=== PATIENT | female | born 1950 | race African-American/Black ===

== ENCOUNTER 2024-06-26 21:07 | Inpatient (IN) | payer OTHER ==
[~2024-06-26] VITALS: Ht 175.3 cm; Wt 113.4 kg
[2024-06-26 21:20] VITALS: PULSE 85; RESP 14; O2SAT 97
--- NOTE | 2024-06-26 21:27 | ED.PDOC ---
History of Present Illness HPI Comments 74 year old female presents to the ED with a chief complaint of generalized weakness onset 2 weeks. Per EMS, patient has been laying in bed for the past 2 weeks, family were not able to convince patient to go to hospital. Family noticed patient's weakness and shortness of breath worsened and called 911. Upon EMS arrival patient's O2 sat was 80% on RA, BP 78/53, BS 75. Patient was experiencing shortness of breath when moving, she was A&O x4. PMHx DM, HTN. No other symptoms or modifying factors present at this time. 22:15 Son states the patient fell about 1 week ago, since then has been laying in bed, noticed bilateral leg swelling. Patient's son also states patient was experiencing external hemorrhoid that was "hanging out." Patient had been lying prone in the bed due to rectal pain from hemorrhoid as well as having diarrhea. Patient has not been taking DM medication for the past 4 months. Son noticed patient was experiencing shortness of breath, called 911. Time Seen by MD: 21:13 Reviewed Notes: Medications, Allergies Allergies: Coded Allergies: NO KNOWN ALLERGIES (Unverified , 06/26/24) Information Source: Patient, Emergency Med Personnel Mode of Arrival: EMS Severity: Moderate Timing: Weeks Duration: Since onset Prehospital treatment: 12 Lead EKG, Oxygen Vital Signs Vital Signs Date Time Temp Pulse Resp B/P (MAP) Pulse Ox O2 Delivery O2 Flow Rate FiO2 06/27/24 03:15 95.2 81 18 104/64 (77) 100 95.2 06/27/24 02:10 35 06/26/24 22:00 Non-Rebreather 15 Physical Exam General: Patient appears lethargic, arouses to verbal stimulation Skin: Skin in warm, dry and intact. Appropriate color for ethnicity. HEENT: The head is normocephalic and atraumatic. Conjunctivae are clear with clear discharge. Sclera is non-icteric. EOM are intact. No signs of nystagmus. Eyelids are normal in appearance without swelling or lesions. Oral mucosa is dry Neck: The neck is supple with normal range of motion. Positive JVD. Cardiac: Heart rate and rhythm are normal. Positive systolic murmurs, gallops, or rubs are auscultated. Respiratory: No signs of respiratory distress. Lung sounds are clear in all lobes bilaterally without rales, rhonchi, or wheezes. Abdominal: Abdomen is soft, non-tender without distention. Bowel sounds are present and normoactive in all four quadrants. BRBPR Extremities: Upper and lower extremities are atraumatic in appearance. Positive 2+ pitting bilateral lower extremity edema Neurological: The patient is lethargic, easily arousable oriented to person, place, with normal speech. Speech is clear. There is no facial asymmetry. Moving all extremities spontaneously Review of Systems: REVIEW OF SYSTEMS: Unable to obtain full ROS due to altered mental status, generalized weakness Patient denies chest pain, denies abdominal pain, reports rectal pain and shortness of breath Past Medical History PAST MEDICAL HISTORY: DM, HTN Surgical History: Denies all surgeries SEAT COVERER History: No Pertinent SEAT COVERER History Family History Family History: Reviewed,noncontributory to illness, No family hx of Cancer, No family hx of DM, No family hx of Heart mike, No family hx of HTN, No family hx ofKidney mike, No family hx of Liver mike, No family hx of Lung mike, No family hx of Stroke Social History Smoker: Non-Smoker Alcohol: Denies ETOH Use Drugs: Denies Drug Use Lives In: Home Was a procedure done? 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 [employer] belt: Attending Physician Indication: Hypotension Room prepared for procedure: Yes Assistant Professor Of Chemistry performed hand hygien: Yes Maximal sterile barrier precau: Mask/Eye shield, Sterile gown, Cap, Sterlie gloves, Large sterlie drape Skin Preparation: Chlorhexidine gluconate, Providine iodine, Alcohol Skin preparation completely dr: Yes Insertion site: Left, Internal jugular Central line catheter type: Oti-[id number]-acz dialysis Number of lumens: 3 Central line exchanged over a: No Post Assessment: Chest X-Ray, Proper placement Informed consent obtained: Yes Risks/benefits/alt described: Yes Intubation Indication: Airway Protection Prep: Preoxygenation Pretreated with: Sedation Medicated with: Succinylcholine (120 mg), Other (etomidate 20 mg) Intubation Approach: Orotracheal Intubation size: cm (23) Informed consent obtained: Yes Risks/benefits/alt described: Yes EKG EKG : Pulse Rate (adult): 66 [place]: LAD Cardiac Rhythm: Junctional Comments No STEMI Differential Dx Considerations may include: Differential diagnosis considered includes but not limited to intracranial hemorrhage, stroke, head injury, seizure, metabolic disturbance, electrolyte imbalance, infection, substance intoxication, psychiatric cause, other systemic illness, sepsis, other X-Ray, Labs, Meds, VS Vital Signs Date Time Temp Pulse Resp B/P (MAP) Pulse Ox O2 Delivery O2 Flow Rate FiO2 06/27/24 03:15 95.2 81 18 104/64 (77) 100 95.2 06/27/24 03:00 110/64 06/27/24 03:00 110/64 06/27/24 03:00 95.0 80 18 110/64 (79) 100 95.0 06/27/24 02:45 94.8 83 18 115/66 (82) 100 94.8 06/27/24 02:36 115/66 06/27/24 02:36 115/66 06/27/24 02:32 116/62 06/27/24 02:32 116/62 06/27/24 02:30 94.6 84 18 112/65 (81) 100 94.6 06/27/24 02:15 94.6 83 18 116/62 (80) 100 94.6 06/27/24 02:15 112/65 06/27/24 02:15 94.6 83 18 116/62 94.6 06/27/24 02:10 84 18 112/65 (81) 99 35 06/27/24 02:00 94.6 83 18 118/64 94.6 06/27/24 02:00 94.6 84 18 113/64 (80) 100 94.6 06/27/24 02:00 118/64 06/27/24 02:00 118/64 06/27/24 01:55 94.6 87 18 112/65 94.6 06/27/24 01:45 94.8 84 18 113/64 94.8 06/27/24 01:45 94.8 84 18 113/64 (80) 100 94.8 06/27/24 01:45 113/64 06/27/24 01:30 95.0 84 18 108/59 (75) 100 95.0 06/27/24 01:30 97.2 88 18 103/47 99 40 97.2 06/27/24 01:15 84 18 100/58 (72) 100 06/27/24 01:15 100/58 06/27/24 01:00 80 18 95/55 (68) 100 06/27/24 01:00 95/55 06/27/24 01:00 95/55 06/27/24 00:50 90/54 06/27/24 00:45 80 18 89/53 (65) 100 06/27/24 00:45 89/53 06/27/24 00:45 89/53 06/27/24 00:30 85/48 06/27/24 00:30 85 18 85/48 (60) 100 06/27/24 00:15 96/54 06/27/24 00:15 86 18 96/54 (68) 100 06/27/24 00:05 88 18 103/47 (65) 99 50 06/27/24 00:02 197 06/27/24 00:00 80 18 90/53 (65) 100 06/27/24 00:00 90/53 06/27/24 00:00 90/53 06/26/24 23:45 86/48 06/26/24 23:45 86/48 06/26/24 23:30 86 18 108/56 (73) 100 06/26/24 23:15 86 18 110/54 (72) 100 06/26/24 23:15 110/54 06/26/24 23:00 86 18 109/55 (73) 100 06/26/24 23:00 109/55 06/26/24 23:00 109/55 06/26/24 22:45 113/56 06/26/24 22:45 87 18 113/56 (75) 100 06/26/24 22:37 88 18 113/56 (75) 100 50 06/26/24 22:30 88 18 118/62 (80) 100 06/26/24 22:15 86 18 92/36 (54) 100 06/26/24 22:15 92/36 06/26/24 22:15 92/36 06/26/24 22:10 80/49 06/26/24 22:08 66 06/26/24 22:05 57/32 06/26/24 22:01 66 06/26/24 22:00 104 19 147/114 (125) 99 06/26/24 22:00 147/112 06/26/24 22:00 22 98 Non-Rebreather 15 100 100 06/26/24 21:55 60/32 06/26/24 21:45 64/36 06/26/24 21:45 97.2 72 14 64/36 (45) 100 97.2 06/26/24 21:40 69/40 06/26/24 21:33 166 62/38 (46) 06/26/24 21:20 85 14 97 Non-Rebreather 15 N/A 06/26/24 21:12 155 06/26/24 21:10 97.2 66 16 78/58 (65) 88 97.2 Lab Test 06/27/24 02:28 06/27/24 01:19 06/27/24 01:02 06/27/24 00:34 Range/Units POC Glucose 134 H 82 70-106 mg/dl Lactic Acid Level 8.6 *H 0.4-2.0 mmol/L Blood Gas Specimen Type Arterial Blood Gas Sample Site Right radial Blood Gas Patient Temperature 37.0 Arterial Blood Date Drawn [id number] Arterial Blood pH 7.128 *L 7.350-7.450 Arterial Blood Partial Pressure CO2 28.8 L 32.0-45.0 mmHg Arterial Blood Partial Pressure O2 142.4 H 83.0-108.0 mmHg Arterial Blood HCO3 9.3 L 21.0-28.0 mmol/L Arterial Blood Oxygen Saturation 98.0 94.0-98.0 % Arterial Blood Base Excess -18.4 L -2.0-3.0 mmol/L Arterial Blood Oxyhemoglobin 96.8 94.0-98.0 % Arterial Blood Carboxyhemoglobin 0.4 L 0.5-1.5 % Arterial Blood Methemoglobin 0.8 0.0-1.5 % Michael Test Modified Blood Gas Total Hemoglobin 7.80 L 12.0-16.0 g/dL Blood Gas Set Respiration Rate 18.0 Blood Gas Modality Vent - ac Blood Gas Spontaneous Rate 18 FiO2 % 50.0 Blood Gas Tidal Volume 500.0 Blood Gas PEEP or CPAP 5.0 Blood Gas Critical Value Read Back Yes Blood Gas Notified Whom herminio Amaral md Blood Gas Notified Time [id number] Blood Gas Notified By marcus Bonilla casing inspector Test 06/27/24 00:20 06/27/24 00:16 06/27/24 00:03 06/26/24 23:30 Range/Units Urine Color Dark-orange Yellow Urine Clarity Ex.turbid Clear Urine pH 5.0 5.0-9.0 Urine Specific [place] 1.021 1.001-1.035 Urine Protein 1+ H Negative Urine Ketones Negative Negative Urine Blood 1+ H Negative /uL Urine Nitrite Negative Negative Urine Bilirubin 1+ H Negative Urine Urobilinogen 2 H Negative mg/dL Urine Leukocyte Esterase Negative Negative /uL Urine RBC 21 0 - 4 /hpf Urine Microscopic WBC 50 H 0-5 /HPF Urine Squamous Epithelial Cells None seen <5 /hpf Urine Bacteria None seen None Seen /hpf Urine Hyaline Casts Many 0 - 2 /lpf Urine Mucus Few None Seen Urine Creatinine Pending Urine Protein/Creatinine Ratio Pending Urine Sodium Pending Urine Glucose Normal Normal mg/dL Urine Total Protein Pending Urine Opiates Screen Neg NEGATIVE Urine Fentanyl Screen Neg NEGATIVE Urine Barbiturates Screen Neg NEGATIVE Urine Phencyclidine Screen Neg NEGATIVE Urine Amphetamines Screen Neg NEGATIVE Urine Benzodiazepines Screen Neg NEGATIVE Urine Cocaine Screen Neg NEGATIVE Urine Cannabinoids Screen Neg NEGATIVE D-Dimer, Quantitative 17.01 H 0.0-0.49 mg/L FEU Troponin I High Sensitivity 13 </=34 ng/L POC Glucose 84 70-106 mg/dl Lactic Acid Level 7.3 *H 0.4-2.0 mmol/L Test 06/26/24 23:21 06/26/24 22:40 06/26/24 22:34 06/26/24 22:25 Range/Units POC Glucose 89 98 70-106 mg/dl Sodium Level 139 136-145 mmol/L Potassium Level 6.6 *H 3.5-5.1 mmol/L Chloride Level 113 H 98-107 mmol/L Carbon Dioxide Level 12 L 20-31 mmol/L Anion Gap 14 5-15 Blood Urea Nitrogen 44 H 9-23 mg/dL Creatinine 3.11 H 0.550-1.02 mg/dL Glomerular Filtration Rate Calc 15 >90 mL/min BUN/Creatinine Ratio 14.1 10.0-20.0 Serum Glucose 96 74-106 mg/dL Calcium Level 6.6 L 8.7-10.4 mg/dL Troponin I High Sensitivity 11 </=34 ng/L Test 06/26/24 22:22 06/26/24 22:17 06/26/24 21:34 06/26/24 21:30 Range/Units POC Glucose 139 H 198 H 70-106 mg/dl Blood Gas Specimen Type Arterial Blood Gas Sample Site Left radial Blood Gas Patient Temperature 37.0 Arterial Blood Date Drawn Arterial Blood pH 7.266 L 7.350-7.450 Arterial Blood Partial Pressure CO2 22.2 L 32.0-45.0 mmHg Arterial Blood Partial Pressure O2 249.9 H 83.0-108.0 mmHg Arterial Blood HCO3 9.9 L 21.0-28.0 mmol/L Arterial Blood Oxygen Saturation 100.0 H 94.0-98.0 % Arterial Blood Base Excess -15.6 L -2.0-3.0 mmol/L Arterial Blood Oxyhemoglobin 98.8 H 94.0-98.0 % Arterial Blood Carboxyhemoglobin 0.6 0.5-1.5 % Arterial Blood Methemoglobin 0.6 0.0-1.5 % Michael Test Modified Blood Gas Total Hemoglobin 6.60 *L 12.0-16.0 g/dL Blood Gas Liter Flow 15.00 Blood Gas Modality Mask - nrb FiO2 % 100.0 Blood Gas Critical Value Read Back Yes Blood Gas Notified Whom herminio Amaral md Blood Gas Notified Time [id number] Blood Gas Notified By marcus Bonilla rrt White Blood Count 24.9 H 4.4-10.8 10^3/uL Red Blood Count 2.36 L 4.0-5.20 10^6/uL Hemoglobin 6.7 *L 12.2-16.2 g/dL Hematocrit 22.7 L 36.0-46.0 % Mean Corpuscular Volume 96.2 80.0-100.0 fL Mean Corpuscular Hemoglobin 28.6 28.0-32.0 pg Mean Corpuscular Hemoglobin Concent 29.7 L 32.0-36.0 g/dL Red Cell Distribution Width 20.6 H 11.8-14.3 % Platelet Count 248 140-450 10^3/uL Mean Platelet Volume 7.1 6.9-10.8 fL Neutrophils (%) (Auto) 37.0-80.0 % Lymphocytes (%) (Auto) 10.0-50.0 % Monocytes (%) (Auto) 0.0-12.0 % Basophils (%) (Auto) 0.0-2.0 % Neutrophils # (Auto) 1.6-8.6 10 ^3/uL Lymphocytes # (Auto) 0.4-5.4 10 ^3/uL Monocytes # (Auto) 0-1.3 10 ^3/uL Differential Total Cells Counted 100.0 100 Neutrophils % (Manual) 80 37.0-80.0 Band Neutrophils % (Manual) 9 Lymphocytes % (Manual) 7 L 10.0-50.0 Monocytes % (Manual) 4 0-12 Eosinophils % (Manual) 0 0-7 Basophils % (Manual) 0 0.0-2.0 Metamyelocytes % (manual) 0 Myelocytes % (Manual) 0 Promyelocytes % (Manual) 0 Blast Cells % (Manual) 0 Reactive Lymphocytes 0 Platelet Estimate Adequate Anisocytosis (manual) Slight Target Cells Few Tear Drop Cells Few [place] Cells Few Prothrombin Time 49.0 H 9.3-11.8 sec Prothrombin Time INR 5.47 *H 0.9-1.15 Sodium Level 135 L 136-145 mmol/L Potassium Level 7.2 *H 3.5-5.1 mmol/L Chloride Level 109 H 98-107 mmol/L Carbon Dioxide Level 12 L 20-31 mmol/L Anion Gap 14 5-15 Blood Urea Nitrogen 44 H 9-23 mg/dL Creatinine 3.44 H 0.550-1.02 mg/dL Glomerular Filtration Rate Calc 14 >90 mL/min BUN/Creatinine Ratio 12.8 10.0-20.0 Serum Glucose 29 *L 74-106 mg/dL Lactic Acid Level 7.1 *H 0.4-2.0 mmol/L Calcium Level 7.5 L 8.7-10.4 mg/dL Magnesium Level 2.3 1.6-2.6 mg/dL Total Bilirubin 4.8 H 0.2-1.0 mg/dL Aspartate Amino Transferase (AST) 278 H 13-40 U/L Alanine Aminotransferase (ALT) 55 H 7-40 U/L Alkaline Phosphatase 436 H 46-116 U/L Troponin I High Sensitivity 11 </=34 ng/L B-Type Natriuretic Peptide 134.34 0-100 pg/mL Total Protein 5.9 5.7-8.2 g/dL Albumin 2.1 L 3.2-4.8 g/dL Lipase 25 12-53 U/L Thyroid Stimulating Hormone (TSH) 2.44 0.55-4.78 uIU/mL Plasma/Serum Blood Alcohol 4.9 <10 mg/dL Microbiology Date/Time Source Procedure Growth Status 06/26/24 21:30 Blood Blood Culture - Preliminary Resulted 06/26/24 21:20 Blood Blood Culture - Preliminary Resulted Current Medications Medications (Trade) Dose Ordered Sig/[place] Route Start Time Stop Time Status Last Admin Albuterol (Ventolin Medneb) 2.5 mg ONCE ONCE NEB 06/26/24 21:30 06/26/24 21:31 DC 06/26/24 22:00 Sodium Chloride 1,000 ml @ 1,000 mls/hr Q1H ONCE IV 06/26/24 21:30 06/26/24 22:29 DC 06/26/24 21:30 Norepinephrine Bitartrate 250 ml @ 3.75 mls/hr Q24H IV 06/26/24 21:45 06/27/24 02:36 Ceftriaxone Sodium 50 ml @ 100 mls/hr ONCE ONCE IV 06/26/24 22:00 06/26/24 22:29 DC 06/27/24 01:02 Vancomycin HCl 200 ml @ 200 mls/hr ONCE ONCE IV 06/26/24 22:00 06/26/24 22:59 DC 06/27/24 01:02 Etomidate 20 mg ONCE ONCE IV 06/26/24 22:15 06/26/24 22:16 DC 06/27/24 02:30 Succinylcholine Chloride (Quelicin) 120 mg ONCE ONCE IV 06/26/24 22:15 06/26/24 22:16 DC 06/27/24 02:30 Midazolam HCl 50 ml @ 1 mls/hr Q24H IV 06/26/24 22:15 06/27/24 02:32 Dextrose 50 ml ONCE ONCE IV 06/26/24 22:30 06/26/24 22:31 DC 06/27/24 02:38 Sodium Bicarbonate 50 ml ONCE ONCE IV 06/26/24 22:30 06/26/24 22:31 DC 06/27/24 01:05 Calcium Gluconate/ Sodium Chloride 50 ml @ 120 mls/hr ONCE ONCE IV 06/26/24 22:30 5/7/25 22:54 DC 06/27/24 01:02 Zirconium Oxide (Lokelma) 10 gm ONCE ONCE PO 06/26/24 22:30 06/26/24 22:31 DC 06/27/24 01:01 Sodium Chloride 1,000 ml @ 1,000 mls/hr Q1H ONCE IV 06/27/24 00:30 06/27/24 01:29 DC 06/27/24 00:30 Vasopressin 20 units/Sodium Chloride 100 ml @ 9 mls/hr Q11H7M IV 06/27/24 01:00 06/27/24 17:59 Findings/Impression: Frontal chest radiograph demonstrates no acute osseous or superficial soft tissue abnormalities. The trachea is midline. Cardiomegaly. Low lung volumes bronchovascular crowding. Bibasilar atelectasis. No pneumothorax. Time of 1ST Reevaluation: 21:43 Reevaluation 1ST: Unchanged Patient Education/Counseling: Other (Need for admission and intubation) Family Education/Counseling: Other (Need for admission) Departure 1 Departure Time of Disposition: 23:51 Impression: Primary Impression: Metabolic acidosis Additional Impressions: Sepsis Acute respiratory failure Hyperkalemia Severe anemia Hypoglycemia Lower GI bleed Acute renal failure Disposition: ADMITTED INPATIENT Condition: Critical Comments 74-year-old female who presents to the emergency department with hypoxia, altered mental status and hypotension. Patient initially was maintaining oxygen saturations on non-rebreather mask. During the ED observation patient became more obtunded with gasping respirations. Patient was intubated for airway protection, optimal ventilation and oxygenation. Left internal jugular central line was placed. Antibiotics, IV fluids, pressors and blood transfusion, hyperkalemia treatment, hypoglycemia treatment initiated in the emergency department. IV fluids administered gently due to physical findings of fluid overload. Patient admitted to hospitalist service for further treatment, evaluation and monitoring. CT chest abdomen and pelvis pending Extensive evaluation was performed in attempt to identify or rule out: (See differential diagnosis section) The following tests were ordered, and results were reviewed by me and discussed with patient: (See diagnostic results section) The following test were independently interpreted by me: EKG, chest x-ray I reviewed and agreed with the following test results read by other providers: Chest x-ray I reviewed the following notes from the pt's past medical encounters: N/A Additional information was gathered from interviewing the following independent historians: Patient's son at bedside, EMS personnel Discussion of management or test interpretation with external physician/other qualified health nursing care attendant: Omer Vieyra Addressed an acute or chronic illness that poses a threat to life or bodily function: Acute metabolic encephalopathy, acute respiratory failure, severe anemia requiring blood transfusion, septic shock Decision regarding hospitalization or escalation of hospital level of care: Risk and benefits of admission for further treatment of patient's condition was considered. Due to patient's current clinical condition, high risk of decline and poor outcome if discharged and need for further inpatient management and monitoring, patient will be admitted to the hospital. Drug therapy requiring intensive monitoring for toxicity: IV potassium, IV sodium bicarbonate, IV calcium gluconate, IV dextrose Parenteral controlled substances: IV etomidate, IV succinylcholine, IV midazolam Decision regarding elective major surgery with identified patient or procedure risk factors: N/A Decision regarding emergency major surgery: N/A Decision not to resuscitate or to de-escalate care because of poor prognosis: N/A Diagnosis or treatment significantly limited by social determinants of health: N/A Critical Care Note Critical Care Time?: Yes (55 min-critical care time only) Critical care comment: Due to a high probability of clinically significant, life threatening deterioration, the patient required my highest level of preparedness to intervene emergently and I personally spent this critical care time directly and personally managing the patient. This critical care time included obtaining a history; examining the patient; pulse oximetry; ordering and review of studies; arranging urgent treatment with development of a management plan; evaluation of patient's response to treatment; frequent reassessment; and, discussions with other providers. This critical care time was performed to assess and manage the high probability of imminent, life-threatening deterioration that could result in multi-organ failure. It was exclusive of separately billable procedures and treating other patients and teaching time. Please see my other sections and the rest of the note for further information on patient assessment and treatment. Stability Stability form required: No I personally scribed for DELROY AMARAL MD ([email or web address]) on 06/26/24 at 21:27. Electronically submitted by Nunu Giles ([email or web address]). I personally scribed for DELROY AMARAL MD ([email or web address]) on 06/26/24 at 22:08. Electronically submitted by Nunu Gilse ([email or web address]). I personally scribed for DELROY AMARAL MD ([email or web address]) on 06/26/24 at 22:32. Electronically submitted by Nunu Giles ([email or web address]). I personally scribed for DELROY AMARAL MD ([email or web address]) on 06/26/24 at 22:39. Electronically submitted by Nunu Giles ([email or web address]). I personally scribed for DELROY AMARAL MD ([email or web address]) on 06/26/24 at 23:19. Electronically submitted by Nunu Giles ([email or web address]). DELROY AMARAL MD June 26, 2024 21:27
[2024-06-26] MEDS: SODIUM CHLORIDE 0.9% 1,000 ML IV ONE (21:30)
[2024-06-26] MEDS ORDERED: NOREPINEPHRINE 8 MG/250ML KIT 250 ML IV SCH (21:45)
[2024-06-26 21:50] LABS: Hematocrit 22.7 % (36.0-46.0); Mean Corpuscular Hemoglobin 28.6 pg (28.0-32.0); Mean Corpuscular Hgb Conc. 29.7 g/dL (32.0-36.0); Mean Corpuscular Volume 96.2 fL (80.0-100.0); Platelet Count (auto) 248 10^3/uL (140-450); Red Blood Cells 2.36 10^6/uL (4.0-5.20); White Blood Cell 24.9 10^3/uL (4.4-10.8)
[2024-06-26] MEDS: NOREPINEPHRINE 8 MG/250ML KIT 250 ML IV ONE (21:51)
--- NOTE | 2024-06-26 21:56 | DVH ---
EXAM: XY CHEST XRAY 1 VIEW TECHNIQUE: Single frontal chest radiograph CLINICAL HISTORY: AMS COMPARISON: None Findings/Impression: Frontal chest radiograph demonstrates no acute osseous or superficial soft tissue abnormalities. The trachea is midline. Cardiomegaly. Low lung volumes bronchovascular crowding. Bibasilar atelectasis. No pneumothorax.
[2024-06-26] MEDS: ALBUTEROL SULF 2.5 MG/0.5ML(0.5%) NEB SOLN NEB ONE (22:00)
[2024-06-26 22:06] LABS: Anion Gap 14 (5-15); BUN/Creatinine Ratio 12.8 (10.0-20.0); Blood Alcohol 4.9 mg/dL (<10); Magnesium 2.3 mg/dL (1.6-2.6); Total Protein 5.9 g/dL (5.7-8.2)
[2024-06-26 22:09] LABS: Alanine Aminotransferase 55 U/L (7-40); Albumin 2.1 g/dL (3.2-4.8); Alkaline Phosphatase 436 U/L (46-116); Aspartate Aminotransferase 278 U/L (13-40); Bilirubin, Total 4.8 mg/dL (0.2-1.0); Blood Urea Nitrogen 44 mg/dL (9-23); Calcium 7.5 mg/dL (8.7-10.4); Carbon Dioxide 12 mmol/L (20-31); Chloride 109 mmol/L (98-107); Hemoglobin 6.7 g/dL (12.2-16.2); Red Cell Distribution Width 20.6 % (11.8-14.3); Sodium 135 mmol/L (136-145)
[2024-06-26 22:10] LABS: Basophils % (manual) 0 (0.0-2.0); Blast Cells 0; Eosinophils % (manual) 0 (0-7); Lactic Acid w/Reflex 7.1 mmol/L (0.4-2.0); Metamyelocytes % 0; Myelocytes % 0; Promyelocytes % 0; Reactive Lymphocytes 0
[2024-06-26 22:11] LABS: Glucose 29 mg/dL (74-106); Potassium 7.2 mmol/L (3.5-5.1)
[2024-06-26] MEDS: SUCCINYLCHOLINE CHLORIDE 20 MG/ML 10ML VIAL IV ONE (22:11)
[2024-06-26] MEDS: ETOMIDATE (2MG/ML) 20ML VIAL IV ONE (22:11)
[2024-06-26] MEDS: DEXTROSE 50% SYRINGE 50 ML IV ONE ×2 (22:15→22:18)
[2024-06-26] MEDS ORDERED: ROCURONIUM 10MG/ML 10ML VIAL IV ONE (22:15)
[2024-06-26 22:24] LABS: Anisocytosis Slight; Band Neutrophils % (manual) 9; Lymphocytes % (manual) 7 (10.0-50.0); Monocytes % (manual) 4 (0-12); Platelet Estimate Adequate; Target Cell FEW; Tear Drop Cells FEW
[2024-06-26] MEDS: InsuLIN REG 1unit/0.01ml Soln (100units/ml) IV ONE (22:30)
[2024-06-26] MEDS: MIDAZOLAM DRIP 50 mg/50mL 50 ML IV ONE (22:33)
[2024-06-26 22:47] LABS: Base Excess -15.6 mmol/L (-2.0-3.0)
[2024-06-26 22:54] LABS: Sodium 139 mmol/L (136-145)
[2024-06-26 23:00] LABS: BUN/Creatinine Ratio 14.1 (10.0-20.0); Glucose 96 mg/dL (74-106)
[2024-06-26] MEDS ORDERED: D5W 5% 1,000 ML IV ONE (23:00)
[2024-06-26 23:04] LABS: Blood Urea Nitrogen 44 mg/dL (9-23); Calcium 6.6 mg/dL (8.7-10.4); Carbon Dioxide 12 mmol/L (20-31)
[2024-06-26 23:07] LABS: Lipase 25 U/L (12-53)
[2024-06-26 23:29] LABS: Anion Gap 14 (5-15); Chloride 113 mmol/L (98-107); Potassium 6.6 mmol/L (3.5-5.1)
[2024-06-26] MEDS: D5W/SOD CHLO 0.9% 1,000 ML IV ONE (23:30)
[2024-06-27] VITALS (33 sets, daily range): BP systolic 92–118; BP diastolic 47–69; PULSE 82–107; RESP 15–25; TEMP 90.1–98; O2SAT 95–99
--- NOTE | 2024-06-27 00:09 | DVH ---
CHEST RADIOGRAPH Indication: S/P INTUBATION Technique: Single frontal view of the chest was obtained COMPARISON: XY CHEST XRAY 1 VIEW on DOS: 06/26/24; 21:30 hrs FINDINGS / IMPRESSION: Lines and Tubes: Tip of the ETT is in the proximal right mainstem bronchus and should be withdrawn by 3-4 cm. Lungs: Pulmonary infiltrates again noted in both lungs greater on the right side, progressed compared to the prior chest x-ray from approximately 1.5 hours earlier. Pleura: No effusion.No pneumothorax. Cardiomediastinal contours: Unremarkable
[2024-06-27] MEDS: SODIUM CHLORIDE 0.9% 1,000 ML IV ONE ×2 (00:30→03:30)
[2024-06-27 00:35] LABS: Urine Bacteria None Seen /hpf (None Seen)
[2024-06-27 00:47] LABS: Urine Blood 1+ /uL (Negative); Urine Clarity Ex.Turbid (Clear); Urine Color Dark-Orange (Yellow); Urine Hyaline Cast MANY /lpf (0 - 2); Urine Mucus FEW (None Seen); Urine Protein, UAD 1+ (Negative); Urine Specific Gravity 1.021 (1.001-1.035); Urine Squamous Epithelial Cell None Seen /hpf (<5); Urine Urobilinogen 2 mg/dL (Negative); Urine WBC 50 /HPF (0-5)
[2024-06-27 00:48] LABS: INR 5.47 (0.9-1.15)
[2024-06-27 00:51] LABS: Base Excess -18.4 mmol/L (-2.0-3.0)
[2024-06-27] MEDS: SODIUM ZIRCONIUM CYCL 10 GM PAK PO ONE (01:01)
[2024-06-27] MEDS: VANCOMYCIN 1GM/200ML PM 200 ML IV ONE (01:02)
[2024-06-27] MEDS: cefTRIAXone 1GM/50ML D5W 50 ML IV ONE (01:02)
[2024-06-27] MEDS: CALCIUM GLUC 1,000mg/50ml-NS 50 ML IV ONE ×3 (01:02→19:30)
[2024-06-27] MEDS: SODIUM BICARB 8.4% 50Meq/50ml SYR INJ IV ONE (01:05)
--- NOTE | 2024-06-27 01:47 | DVH ---
Exam: CT CHST AB PEL WO CON-NO IV/ORAL History: Hypoxia, sepsis Comparison Study: NoneNone available at time of dictation. Technique: Multidetector spiral CT of the chest, abdomen and pelvis was performed from lower neck to pubic symphysis Axial, coronal and sagittal multiplanar reformats were performed by the technologist on a separate workstation. Radiation Dose : 1. Chest/Abdomen/Pelvis: CTDIvol 22.94 mGy, DLP 1615.26 mGy*cm. Findings: Lower neck: Normal thyroid. Lungs: Endotracheal tube tip within the proximal right mainstem bronchus. Multiple lobulated bilateral pulmonary masses, the largest of which measure 4.6 cm on the right, with in the right middle lobe and 7.4 cm on the left, within the posterior left lung base. Small right ple ural effusion. No evidence of pneumothorax. Heart/Vascular Structures: Normal heart size. No pericardial effusion. Left-sided central venous acce ss catheter terminates at the level of the cavoatrial junction. Atherosclerotic vascular calcificatio ns. Lymph Nodes: No adenopathy Pleura: No pleural effusion or significant pneumothorax. Liver: The liver is markedly enlarged, measuring up to 20.0 cm in craniocaudal dimension and 27.2 cm transverse. Irregular calcifications are present within the central posterior right hepatic lobe.. N o focal lesions. Normal hepatic vascular enhancement. Gallbladder and Biliary Tree: The gallbladder is not identified. Spleen: Unremarkable Pancreas: The pancreas is normal in appearance without focal lesions or abnormal enhancement. Adrenal Glands: Unremarkable Kidneys: Kidneys demonstrate normal symmetric enhancement without focal lesions, calculi or hydroneph rosis. Bladder: Unremarkable Bowel: The stomach is grossly normal in appearance. Enteric catheter terminates within the stomach. S mall bowel and colon are normal in caliber and distribution. The appendix is not visualized; however , no secondary findings of acute appendicitis identified. Ascites: Moderate volume abdominopelvic ascites. Lymphadenopathy: Innumerable partially calcified pathologically enlarged retroperitoneal lymph nodes within the abdomen and pelvis, for example, aortocaval node measuring 2.2 cm and right common iliac n ode measuring 4.0 x 2.8 cm. Abdominal Wall and Mesentery: Unremarkable. Vasculature: The visualized abdominal aorta is normal in size and caliber. Atherosclerotic vascular c alcifications. Abdominal and pelvic vessels demonstrate normal enhancement. Pelvic Organs: Multiple bilateral pelvic masses exhibiting partial calcification, for example 5.5 x 4 .1 cm within the right external iliac region and 6.4 x 4.1 cm within the left internal iliac region. Additional pathologically enlarged bilateral inguinal lymph nodes, for example left superficial ingui nal node measuring 3.1 cm. Multiple calcified uterine leiomyomata. Musculoskeletal: No aggressive focal bony lesions, acute fractures or dislocation. IMPRESSION: 1. Many soft tissue masses and pathologically enlarged lymph nodes throughout the chest, abdomen and pelvis, including bilateral pulmonary masses, retroperitoneal and pelvic lymphadenopathy and bilatera l pelvic masses. These findings are consistent with diffuse metastatic disease of unknown primary or igin. 2. Marked hepatomegaly and parenchymal calcification. 3. Right mainstem bronchus intubation. Recommend retraction by up to 4 cm. 4. Small right pleural effusion.
[2024-06-27 01:55] LABS: Lactic Acid w/Reflex 8.6 mmol/L (0.4-2.0)
[2024-06-27 02:07] LABS: Amphetamine Screen, Urine Neg (NEGATIVE); Barbiturate Scree,Urine Neg (NEGATIVE); Benzodiazephine Screen, Urine Neg (NEGATIVE); Cannabinoid Screen, Urine Neg (NEGATIVE); Cocaine Screen, Urine Neg (NEGATIVE); Opiate Scree,Urine Neg (NEGATIVE); Phencyclidine Screen, Urine Neg (NEGATIVE)
[2024-06-27] MEDS: SUCCINYLCHOLINE CHLORIDE 20 MG/ML 10ML VIAL IV ONE (02:30)
[2024-06-27] MEDS: ETOMIDATE (2MG/ML) 20ML VIAL IV ONE (02:30)
[2024-06-27] MEDS: MIDAZOLAM DRIP 50 mg/50mL 50 ML IV SCH (02:32)
[2024-06-27] MEDS: NOREPINEPHRINE 8 MG/250ML KIT 250 ML IV SCH (02:36)
[2024-06-27] MEDS: DEXTROSE (50%) 50ML SYRG IV ONE ×3 (02:38→19:30)
[2024-06-27] MEDS: SODIUM BICARB 50mEq/50ml Vial 100 ML in SOD CHL 0.45% 1,000 ML IV ONE (03:30)
[2024-06-27] MEDS ORDERED: NITROGLYCERIN 0.4 MG SL TAB SL PRN (03:30)
[2024-06-27] MEDS ORDERED: ONDANSETRON HCL 4 MG/2 ML VIAL IV PRN (03:30)
[2024-06-27] MEDS ORDERED: ACETAMINOPHEN 325 MG TAB PO PRN (03:30)
[2024-06-27] MEDS ORDERED: MORPHINE SULFATE INJ 2 MG/ml SYRG IV PRN (03:30)
[2024-06-27] MEDS ORDERED: VANCOMYCIN PER PHARMACY 0 MG IV SCH (03:30)
[2024-06-27] MEDS: SODIUM BICARB 8.4% 50Meq/50ml SYR Vial IV ONE ×3 (03:49→10:09)
[2024-06-27] MEDS: InsuLIN REG 1unit/0.01ml Soln (100units/ml) SC SCH (04:00)
--- NOTE | 2024-06-27 04:17 | DVH ---
EXAM: XY CHEST XRAY 1 VIEW HISTORY: Repeat, Follow up study COMPARISON: XY CHEST PORTABLE on DOS: 06/26/24, XY CHEST XRAY 1 VIEW on DOS: 06/26/24, CT scan of the [address] from the previous day. TECHNIQUE: Portable upright AP view of the chest was performed. FINDINGS: Endotracheal tube is re-identified with its tip 3.5 cm above the melissa. OG tube is re-identified wi th its tip at least 13 cm distal to the GE junction. Left IJ central line is re-identified with its tip in the right atrium. Bilateral lung masses and/or masslike consolidation better characterized on prior CT scan. No pneumothorax. The heart is not enlarged. IMPRESSION: 1. Mechanical ventilation with tubes and lines as above. Endotracheal tube is now in good position. 2. Bilateral lung masses and/or masslike consolidation, better characterized on recent CT scan.
[2024-06-27] MEDS: PANTOPRAZOLE 40mg/50ML NS AE 50 ML IV SCH (04:19)
[2024-06-27] MEDS: ACCU-CHEK COMFORT CURVE STRIP VI SCH (04:20)
--- NOTE | 2024-06-27 04:52 | DVHHP2 ---
History of Present Illness Reason for Visit: Shortness for breath History of Present Illness 74-year-old female presents for evaluation of shortness for breath. Patient is currently sedated and intubated. Per ED records and personnel patient had been decompensating over the past two weeks having decreased oral intake and weight loss. Over the past three days patient has been complaining of shortness for breath. No further history could be obtained at the moment. Past Medical History Hypertension, diabetes mellitus,? Cancer Past Surgical History Unknown Family History Unknown Smoke: No ALCOHOL: none Drugs: None Lives: with Family Review of Systems Review of Systems Review of systems are currently negative otherwise addressed in HPI. Allergies: Coded Allergies: NO KNOWN ALLERGIES (Unverified , 06/26/24) Medications Current Medications Medications Dose Ordered Sig/Tavares Route Start Time Stop Time Status Last Admin Dose Admin Norepinephrine Bitartrate 250 ml @ 3.75 mls/hr Q24H IV 06/26/24 21:45 06/27/24 02:36 22.5 MLS/HR Midazolam HCl 50 ml @ 1 mls/hr Q24H IV 06/26/24 22:15 06/27/24 02:32 1 MLS/HR Vasopressin 20 units/Sodium Chloride 100 ml @ 9 mls/hr Q11H7M IV 06/27/24 01:00 Piperacillin Sod/ Tazobactam Sod 100 ml @ 25 mls/hr Q8HR IV 06/27/24 06:00 Vancomycin HCl 0 ml @ 0 mls/hr UD IV 06/27/24 03:30 UNV Diagnostic Test (Pha) 1 strip IQ4HR 06/27/24 04:00 06/27/24 04:20 1 STRIP Insulin Human Regular IQ4HR SC 06/27/24 04:00 Dextrose 50 ml UD PRN IV 06/27/24 03:30 Ondansetron HCl 4 mg Q4HP PRN IV 06/27/24 03:30 Acetaminophen 650 mg Q6HP PRN PO 06/27/24 03:30 Nitroglycerin 0.4 mg Q5MINP PRN SL 06/27/24 03:30 Morphine Sulfate 2 mg Q30M PRN IV 06/27/24 03:30 Pantoprazole Sodium 50 ml @ 10 mls/hr Q5H IV 06/27/24 03:30 06/27/24 04:19 10 MLS/HR Exam Vital Signs Vital Signs Date Time Temp Pulse Resp B/P (MAP) Pulse Ox O2 Delivery O2 Flow Rate FiO2 06/27/24 04:15 96.3 86 18 105/60 96.3 06/27/24 04:14 99 30 06/26/24 22:00 Non-Rebreather 15 Exam Gen: 74-year-old female in moderate distress Skin: Warm, dry, normal color and texture, no rash. HEENT: Normocephalic atraumatic, mucous membranes moist and pink. Neck: Cervical and supraclavicular nodes normal without enlargement, trachea is midline, thyroid gland is normal without masses. Pulmonary: Intubated, diminished breath sounds bilaterally Cardiac: Regular rate and rhythm. No murmur Abdomen: Soft, nontender, nondistended, bowel sounds present all 4 quadrants, no guarding, no rigidity, no organomegaly. Extremities: No cyanosis, clubbing, no edema Neuro: Sedated Labs/Xrays ORDERING PHYSICIAN: DELROY AMARAL MD PROCEDURE(s): CXR1 - CHEST XRAY 1 VIEW REASON: Repeat, Follow up study ORDER NUMBER(s): [id number], ACCESSION NUMBER(s): [id number] EXAM: XY CHEST XRAY 1 VIEW HISTORY: Repeat, Follow up study COMPARISON: XY CHEST PORTABLE on DOS: 06/26/24, XY CHEST XRAY 1 VIEW on DOS: 06/26/24, CT scan of the chest from the previous day. TECHNIQUE: Portable upright AP view of the chest was performed. FINDINGS: Endotracheal tube is re-identified with its tip 3.5 cm above the melissa. OG tube is re-identified with its tip at least 13 cm distal to the GE junction. Left IJ central line is re-identified with its tip in the right atrium. Bilateral lung masses and/or masslike consolidation better characterized on prior CT scan. No pneumothorax. The heart is not enlarged. IMPRESSION: 1. Mechanical ventilation with tubes and lines as above. Endotracheal tube is now in good position. 2. Bilateral lung masses and/or masslike consolidation, better characterized on recent CT scan. RING PHYSICIAN: DELROY AMARAL MD PROCEDURE(s): CTCAP - CHST AB PEL WO CON-NO IV/ORAL REASON: Hypoxia, sepsis ORDER NUMBER(s): [id number], ACCESSION NUMBER(s): [id number] Exam: CT CHST AB PEL WO CON-NO IV/ORAL History: Hypoxia, sepsis Comparison Study: NoneNone available at time of dictation. Technique: Multidetector spiral CT of the chest, abdomen and pelvis was performed from lower neck to pubic symphysis Axial, coronal and sagittal multiplanar reformats were performed by the technologist on a separate workstation. Radiation Dose : 1. Chest/Abdomen/Pelvis: CTDIvol 22.94 mGy, DLP 1615.26 mGy*cm. Findings: Lower neck: Normal thyroid. Lungs: Endotracheal tube tip within the proximal right mainstem bronchus. Multiple lobulated bilateral pulmonary masses, the largest of which measure 4.6 cm on the right, within the right middle lobe and 7.4 cm on the left, within the posterior left lung base. Small right pleural effusion. No evidence of pneumothorax. Heart/Vascular Structures: Normal heart size. No pericardial effusion. Left- sided central venous access catheter terminates at the level of the cavoatrial junction. Atherosclerotic vascular calcifications. Lymph Nodes: No adenopathy Pleura: No pleural effusion or significant pneumothorax. Liver: The liver is markedly enlarged, measuring up to 20.0 cm in craniocaudal dimension and 27.2 cm transverse. Irregular calcifications are present within the central posterior right hepatic lobe.. No focal lesions. Normal hepatic vascular enhancement. Gallbladder and Biliary Tree: The gallbladder is not identified. Spleen: Unremarkable Pancreas: The pancreas is normal in appearance without focal lesions or abnormal enhancement. Adrenal Glands: Unremarkable Kidneys: Kidneys demonstrate normal symmetric enhancement without focal lesions, calculi or hydronephrosis. Bladder: Unremarkable Bowel: The stomach is grossly normal in appearance. Enteric catheter terminates within the stomach. Small bowel and colon are normal in caliber and distribution. The appendix is not visualized; however, no secondary findings of acute appendicitis identified. Ascites: Moderate volume abdominopelvic ascites. Lymphadenopathy: Innumerable partially calcified pathologically enlarged ret roperitoneal lymph nodes within the abdomen and pelvis, for example, aortocaval node measuring 2.2 cm and right common iliac node measuring 4.0 x 2.8 cm. Abdominal Wall and Mesentery: Unremarkable. Vasculature: The visualized abdominal aorta is normal in size and caliber. Atherosclerotic vascular calcifications. Abdominal and pelvic vessels demonstrate normal enhancement. Pelvic Organs: Multiple bilateral pelvic masses exhibiting partial calcification, for example 5.5 x 4.1 cm within the right external iliac region and 6.4 x 4.1 cm within the left internal iliac region. Additional pathologically enlarged bilateral inguinal lymph nodes, for example left superficial inguinal node measuring 3.1 cm. Multiple calcified uterine leiomyomata. Musculoskeletal: No aggressive focal bony lesions, acute fractures or dislocation. IMPRESSION: 1. Many soft tissue masses and pathologically enlarged lymph nodes throughout the chest, abdomen and pelvis, including bilateral pulmonary masses, retroperitoneal and pelvic lymphadenopathy and bilateral pelvic masses. These findings are consistent with diffuse metastatic disease of unknown primary origin. 2. Marked hepatomegaly and parenchymal calcification. 3. Right mainstem bronchus intubation. Recommend retraction by up to 4 cm. 4. Small right pleural effusion. Labs Test 06/27/24 02:28 06/27/24 01:19 06/27/24 00:34 06/27/24 00:20 Range/Units POC Glucose 134 H 70-106 mg/dl Lactic Acid Level 8.6 *H 0.4-2.0 mmol/L Blood Gas Specimen Type Arterial Blood Gas Sample Site Right radial Blood Gas Patient Temperature 37.0 Arterial Blood Date Drawn [id number] Arterial Blood pH 7.128 *L 7.350-7.450 Arterial Blood Partial Pressure CO2 28.8 L 32.0-45.0 mmHg Arterial Blood Partial Pressure O2 142.4 H 83.0-108.0 mmHg Arterial Blood HCO3 9.3 L 21.0-28.0 mmol/L Arterial Blood Oxygen Saturation 98.0 94.0-98.0 % Arterial Blood Base Excess -18.4 L -2.0-3.0 mmol/L Arterial Blood Oxyhemoglobin 96.8 94.0-98.0 % Arterial Blood Carboxyhemoglobin 0.4 L 0.5-1.5 % Arterial Blood Methemoglobin 0.8 0.0-1.5 % Michael Test Modified Blood Gas Total Hemoglobin 7.80 L 12.0-16.0 g/dL Blood Gas Set Respiration Rate 18.0 Blood Gas Modality Vent - ac Blood Gas Spontaneous Rate 18 FiO2 % 50.0 Blood Gas Tidal Volume 500.0 Blood Gas PEEP or CPAP 5.0 Blood Gas Critical Value Read Back Yes Blood Gas Notified Whom herminio Amaral md Blood Gas Notified Time [id number] Blood Gas Notified By marcus Bonilla rrt Urine Color Dark-orange Yellow Urine Clarity Ex.turbid Clear Urine pH 5.0 5.0-9.0 Urine Specific Mcintosh 1.021 1.001-1.035 Urine Protein 1+ H Negative Urine Ketones Negative Negative Urine Blood 1+ H Negative /uL Urine Nitrite Negative Negative Urine Bilirubin 1+ H Negative Urine Urobilinogen 2 H Negative mg/dL Urine Leukocyte Esterase Negative Negative /uL Urine RBC 21 0 - 4 /hpf Urine Microscopic WBC 50 H 0-5 /HPF Urine Squamous Epithelial Cells None seen <5 /hpf Urine Bacteria None seen None Seen /hpf Urine Hyaline Casts Many 0 - 2 /lpf Urine Mucus Few None Seen Urine Glucose Normal Normal mg/dL Urine Opiates Screen Neg NEGATIVE Urine Fentanyl Screen Neg NEGATIVE Urine Barbiturates Screen Neg NEGATIVE Urine Phencyclidine Screen Neg NEGATIVE Urine Amphetamines Screen Neg NEGATIVE Urine Benzodiazepines Screen Neg NEGATIVE Urine Cocaine Screen Neg NEGATIVE Urine Cannabinoids Screen Neg NEGATIVE Test 06/27/24 00:16 06/26/24 22:40 06/26/24 21:34 06/26/24 21:30 Range/Units D-Dimer, Quantitative 17.01 H 0.0-0.49 mg/L FEU Troponin I High Sensitivity 13 </=34 ng/L Sodium Level 139 136-145 mmol/L Potassium Level 6.6 *H 3.5-5.1 mmol/L Chloride Level 113 H 98-107 mmol/L Carbon Dioxide Level 12 L 20-31 mmol/L Anion Gap 14 5-15 Blood Urea Nitrogen 44 H 9-23 mg/dL Creatinine 3.11 H 0.550-1.02 mg/dL Glomerular Filtration Rate Calc 15 >90 mL/min BUN/Creatinine Ratio 14.1 10.0-20.0 Serum Glucose 96 74-106 mg/dL Calcium Level 6.6 L 8.7-10.4 mg/dL Blood Gas Liter Flow 15.00 White Blood Count 24.9 H 4.4-10.8 10^3/uL Red Blood Count 2.36 L 4.0-5.20 10^6/uL Hemoglobin 6.7 *L 12.2-16.2 g/dL Hematocrit 22.7 L 36.0-46.0 % Mean Corpuscular Volume 96.2 80.0-100.0 fL Mean Corpuscular Hemoglobin 28.6 28.0-32.0 pg Mean Corpuscular Hemoglobin Concent 29.7 L 32.0-36.0 g/dL Red Cell Distribution Width 20.6 H 11.8-14.3 % Platelet Count 248 140-450 10^3/uL Mean Platelet Volume 7.1 6.9-10.8 fL Neutrophils (%) (Auto) 37.0-80.0 % Lymphocytes (%) (Auto) 10.0-50.0 % Monocytes (%) (Auto) 0.0-12.0 % Basophils (%) (Auto) 0.0-2.0 % Neutrophils # (Auto) 1.6-8.6 10 ^3/uL Lymphocytes # (Auto) 0.4-5.4 10 ^3/uL Monocytes # (Auto) 0-1.3 10 ^3/uL Differential Total Cells Counted 100.0 100 Neutrophils % (Manual) 80 37.0-80.0 Band Neutrophils % (Manual) 9 Lymphocytes % (Manual) 7 L 10.0-50.0 Monocytes % (Manual) 4 0-12 Eosinophils % (Manual) 0 0-7 Basophils % (Manual) 0 0.0-2.0 Metamyelocytes % (manual) 0 Myelocytes % (Manual) 0 Promyelocytes % (Manual) 0 Blast Cells % (Manual) 0 Reactive Lymphocytes 0 Platelet Estimate Adequate Anisocytosis (manual) Slight Target Cells Few Tear Drop Cells Few [place] Cells Few Prothrombin Time 49.0 H 9.3-11.8 sec Prothrombin Time INR 5.47 *H 0.9-1.15 Magnesium Level 2.3 1.6-2.6 mg/dL Total Bilirubin 4.8 H 0.2-1.0 mg/dL Aspartate Amino Transferase (AST) 278 H 13-40 U/L Alanine Aminotransferase (ALT) 55 H 7-40 U/L Alkaline Phosphatase 436 H 46-116 U/L B-Type Natriuretic Peptide 134.34 0-100 pg/mL Total Protein 5.9 5.7-8.2 g/dL Albumin 2.1 L 3.2-4.8 g/dL Lipase 25 12-53 U/L Thyroid Stimulating Hormone (TSH) 2.44 0.55-4.78 uIU/mL Plasma/Serum Blood Alcohol 4.9 <10 mg/dL Assessment/Plan Assessment/Plan Assessment Septic shock Multi organ failure Community-acquired pneumonia Acute renal failure Questionable GI bleed Metastatic disease Coagulopathy Anemia Plan Admit the patient to ICU to the hospitalist Oncology consultation Nephrology consult Transfuse 2 units of packed red cells GI consult Continue treatment per orders Total critical care time excluding procedures performed this 60 minutes. Plan discussed with: Other My Orders Orders - JUSTEN LUND Procedure Category Date Status Time Basic Metabolic Panel LAB 06/27/24 Logged 03:20 Abg W/ Co-Ox RT 06/27/24 Logged 03:20 *[facility] CONS 06/27/24 Transmitted -[place] 03:20 * Hematology/Oncology CONS 06/27/24 Transmitted Consult 03:20 Accucheck BD 06/27/24 Transmitted 03:20 Piperacillin-Tazob PHA 06/27/24 In Process 3.375gm (Zosyn 3.375g 06:00 Vancomycin Per PHA 06/27/24 Pending Pharmacy 03:30 Sodium Bicarb PHA 06/27/24 In Process 50meq/50ml Vial 03:30 Glucose Blood PHA 06/27/24 In Process (Accu-Chek Comfort 04:00 Insulin R (Human) PHA 06/27/24 In Process (Insulin R) 04:00 Dextrose 50% Syringe PHA 06/27/24 In Process 03:30 Admit ADMIT 06/27/24 Transmitted 03:20 Ondansetron Hcl PHA 06/27/24 In Process (Zofran) 03:30 Complete Blood Count LAB 06/28/24 Verified 04:00 Comprehensive LAB 06/28/24 Verified Metabolic Panel 04:00 Echo 2d Mode Cardiac US 06/27/24 Logged DOP 03:20 Condition: Unstable [facility] 06/27/24 In Process 03:20 Acetaminophen Tablet PHA 06/27/24 In Process (Tylenol Tablet) 03:30 Maintain Bed Rest [facility] 06/27/24 In Process 03:20 Sequential [facility] 06/27/24 In Process Compression Device Nitroglycerin PHA 06/27/24 In Process Sublingual (Ntrostat 03:30 Morphine Sulfate PHA 06/27/24 In Process Injection 03:30 Stat Ekg For Chest [facility] 06/27/24 In Process Pain 03:20 Notify Md Of Changes [facility] 06/27/24 In Process From Base 03:20 Patient Observation Assistant For [facility] 06/27/24 In Process 24 Hours 03:20 Emergency Dysrhythmia [facility] 06/27/24 In Process Protocol 03:20 Rhythm Strips Once [facility] 06/27/24 In Process Every Shift 03:20 Oxygen By Nasal RT 06/27/24 Transmitted Cannula 03:20 Pantoprazole PHA 06/27/24 In Process 40mg/50ml Ns Ae 03:30 Vancomycin 1gm/200ml PHA 06/27/24 In Process Pm 04:00 Stool Occult Blood LAB 06/27/24 Logged 04:43 Ammonia LAB 06/27/24 Verified 04:46 Date of Service: June 27, 2024 Billing Provider: JUSTEN LUND Common Visit Codes: [id number] CARE 30-74 MIN JUSTEN LUND June 27, 2024 04:52
[2024-06-27 05:02] LABS: Base Excess -19.8 mmol/L (-2.0-3.0)
[2024-06-27 05:54] LABS: Sodium 137 mmol/L (136-145)
[2024-06-27 05:55] LABS: Anion Gap 18 (5-15)
[2024-06-27 06:00] LABS: BUN/Creatinine Ratio 13.9 (10.0-20.0)
[2024-06-27] MEDS: PIPERACILLIN-TAZOB 3.375GM 100 ML IV SCH (06:00)
[2024-06-27 06:16] LABS: Blood Urea Nitrogen 46 mg/dL (9-23); Calcium 7.7 mg/dL (8.7-10.4); Carbon Dioxide 11 mmol/L (20-31); Chloride 108 mmol/L (98-107); Glucose 119 mg/dL (74-106)
[2024-06-27 06:18] LABS: Potassium 7.2 mmol/L (3.5-5.1)
[2024-06-27] MEDS: VASOPRESSIN 20 UNITS in SODIUM CHL 0.9% 99 ML IV SCH (08:27)
[2024-06-27] MEDS: FUROSEMIDE 100 MG/10ML VIAL IV ONE (08:30)
[2024-06-27 10:52] LABS: Hemoglobin 9.1 g/dL (12.2-16.2)
[2024-06-27 10:54] LABS: Hematocrit 30.8 % (36.0-46.0); Mean Corpuscular Hemoglobin 28.7 pg (28.0-32.0); Mean Corpuscular Hgb Conc. 29.6 g/dL (32.0-36.0); Mean Corpuscular Volume 97.1 fL (80.0-100.0); Platelet Count (auto) 260 10^3/uL (140-450); Red Blood Cells 3.17 10^6/uL (4.0-5.20); White Blood Cell 29.5 10^3/uL (4.4-10.8)
[2024-06-27 10:56] LABS: Band Neutrophils % (manual) 0; Basophils % (manual) 0 (0.0-2.0); Blast Cells 0; Eosinophils % (manual) 0 (0-7); Metamyelocytes % 0; Myelocytes % 0; Promyelocytes % 0; Reactive Lymphocytes 0
[2024-06-27 11:38] LABS: Chloride 107 mmol/L (98-107); Sodium 139 mmol/L (136-145)
[2024-06-27 11:39] LABS: Anion Gap 19 (5-15)
[2024-06-27 11:44] LABS: BUN/Creatinine Ratio 13.9 (10.0-20.0); Glucose 98 mg/dL (74-106)
[2024-06-27 11:46] LABS: Blood Urea Nitrogen 46 mg/dL (9-23); Calcium 7.6 mg/dL (8.7-10.4); Carbon Dioxide 13 mmol/L (20-31)
[2024-06-27 11:47] LABS: Potassium 6.7 mmol/L (3.5-5.1)
[2024-06-27 12:09] LABS: COVID19 ANTIGEN SOFIA FIA NEGATIVE (NEGATIVE)
[2024-06-27 12:10] LABS: Rapid Influenza A Negative (Negative); Rapid Influenza B Negative (Negative)
[2024-06-27 12:23] LABS: Phosphorus 9.9 mg/dL (2.4-5.1)
[2024-06-27 12:29] LABS: Anisocytosis Slight; Lymphocytes % (manual) 5 (10.0-50.0); Monocytes % (manual) 4 (0-12); Platelet Estimate Adequate; Target Cell FEW
--- NOTE | 2024-06-27 12:39 | ECG ---
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
[2024-06-27 12:46] LABS: Uric Acid 14.9 mg/dL (3.1-7.8)
[2024-06-27 12:48] LABS: Partial Thromboplastin Time 57.2 SEC (24.5-34.5); Prothrombin Time 60.8 sec (9.3-11.8)
[2024-06-27 12:51] LABS: INR 6.95 (0.9-1.15)
[2024-06-27] MEDS: SODIUM BICARB 50mEq/50ml Vial 150 ML in D5W 5% 1,000 ML IV SCH (13:00)
--- NOTE | 2024-06-27 13:38 | DVHPN2 ---
Subjective 74-year-old female with a history of hypertension type 2 diabetes colon cancer in the past surgery for colon cancer 4 years ago is brought here by the family due to shortness of breaths and abdominal swelling and altered level of consciousness and weakness According to her son who is the main caregiver the patient has been sick for almost a month became bed-bound and was losing weight and not eating much with increased shortness of breaths and weakness Apparently the patient was refusing to go to his doctor or come to the hospital until her daughter came also and then yesterday they both called 911 and she was brought to the hospital Here she was intubated She is in sepsis Her white count is 29 0.5 today Hemoglobin was 6.7 yesterday and it is up to 9.1 today Platelets 248 She was in kidney failure with a creatinine of 3.4 and potassium of 7.2 yesterday Today her potassium is still 6.7 and creatinine 3.3 Lactic acid is 9.6 She is on vasopressors Uric acid is 14.9 The chest x-ray shows bibasilar infiltrate CT scan of the abdomen and pelvis showed pathologically enlarged lymph nodes throughout the chest and abdomen and pelvis including bilateral pulmonary masses and retroperitoneal and pelvic lymphadenopathy and bilateral pelvic masses consistent with diffuse metastatic disease with marked hepatomegaly and parenchymal calcification and a small right pleural effusion The patient is at this time intubated and sedated on vasopressors on mechanical ventilation Changes from previous H/P or p: Changes Objective Vitals Vital Signs Date Time Temp Pulse Resp B/P (MAP) Pulse Ox O2 Delivery O2 Flow Rate FiO2 06/27/24 12:18 85 19 103/60 (74) 98 30 06/27/24 11:45 99.0 99.0 06/27/24 07:45 Mechanical Ventilator+ 06/26/24 22:00 15 Intake/Output Intake and Output 06/27/24 07:00 Intake Total 5000 ml Output Total 0 ml Balance 5000 ml Intake Oral 0 ml IV Total 3500 ml Tube Feeding 0 ml Blood Product 1200 ml Other 300 ml Output Urine Total 0 ml General Appearance: Other (Intubated and sedated) Lungs: Other (Bilateral diffused crackles and rhonchi) Cardiovascular: Regular rate, Normal S1, Normal S2 Abdomen: Other (Distended) Extremities: Other (1+ edema bilaterally in the legs) Medications Current Medications Medications Dose Ordered Sig/Tavares Route Start Time Stop Time Status Last Admin Dose Admin Norepinephrine Bitartrate 250 ml @ 3.75 mls/hr Q24H IV 06/26/24 21:45 06/27/24 02:36 22.5 MLS/HR Midazolam HCl 50 ml @ 1 mls/hr Q24H IV 06/26/24 22:15 06/27/24 02:32 1 MLS/HR Vasopressin 20 units/Sodium Chloride 100 ml @ 9 mls/hr Q11H7M IV 06/27/24 01:00 06/27/24 08:27 9 MLS/HR Piperacillin Sod/ Tazobactam Sod 100 ml @ 25 mls/hr Q8HR IV 06/27/24 06:00 06/27/24 06:00 25 MLS/HR Vancomycin HCl 0 ml @ 0 mls/hr UD IV 06/27/24 03:30 Diagnostic Test (Pha) 1 strip IQ4HR 06/27/24 04:00 06/27/24 11:35 1 STRIP Insulin Human Regular IQ4HR SC 06/27/24 04:00 Dextrose 50 ml UD PRN IV 06/27/24 03:30 Ondansetron HCl 4 mg Q4HP PRN IV 06/27/24 03:30 Acetaminophen 650 mg Q6HP PRN PO 06/27/24 03:30 Nitroglycerin 0.4 mg Q5MINP PRN SL 06/27/24 03:30 Morphine Sulfate 2 mg Q30M PRN IV 06/27/24 03:30 Pantoprazole Sodium 50 ml @ 10 mls/hr Q5H IV 06/27/24 03:30 06/27/24 08:30 10 MLS/HR Bumetanide 12.5 mg/Miscellaneous 50 ml @ 2 mls/hr Q24H IV 06/27/24 11:45 Albumin Human 100 ml @ 100 mls/hr Q8H IV 06/27/24 12:45 06/28/24 05:44 Zirconium Oxide 10 gm TID PO 06/27/24 14:00 06/29/24 06:01 Sodium Bicarbonate 150 ml/Dextrose 1,150 ml @ 75 mls/hr [id number] IV 06/27/24 13:00 Laboratory Results Laboratory Tests 06/27/24 05:05 06/27/24 11:03 Chemistry Test 06/26/24 21:30 06/26/24 22:40 06/27/24 05:05 06/27/24 11:03 Albumin 2.1 g/dL (3.2-4.8) L Calcium Level 7.5 mg/dL (8.7-10.4) L 6.6 mg/dL (8.7-10.4) L 7.7 mg/dL (8.7-10.4) L 7.6 mg/dL (8.7-10.4) L Magnesium Level 2.3 mg/dL (1.6-2.6) Total Protein 5.9 g/dL (5.7-8.2) Phosphorus Level 9.9 mg/dL (2.4-5.1) H Coagulation Test 06/26/24 21:30 06/27/24 00:16 06/27/24 11:03 Prothrombin Time 49.0 sec (9.3-11.8) H 60.8 sec (9.3-11.8) H Prothrombin Time INR 5.47 (0.9-1.15) *H 6.95 (0.9-1.15) *H D-Dimer, Quantitative 17.01 mg/L FEU (0.0-0.49) H Activated Partial Thromboplast Time 57.2 SEC (24.5-34.5) H Lipid panel Test 06/26/24 21:30 Lipase 25 U/L (12-53) Cardiac Markers Test 06/26/24 21:30 B-Type Natriuretic Peptide 134.34 pg/mL (0-100) LFT Test 06/26/24 21:30 Alanine Aminotransferase (ALT) 55 U/L (7-40) H Alkaline Phosphatase 436 U/L (46-116) H Aspartate Amino Transferase (AST) 278 U/L (13-40) H Total Bilirubin 4.8 mg/dL (0.2-1.0) H HgA1c, TSH Test 06/26/24 21:30 Thyroid Stimulating Hormone (TSH) 2.44 uIU/mL (0.55-4.78) Urinalysis Test 06/27/24 00:20 Urine Color Dark-orange (Yellow) Urine Clarity Ex.turbid (Clear) Urine pH 5.0 (5.0-9.0) Urine Specific [place] 1.021 (1.001-1.035) Urine Protein 1+ (Negative) H Urine Ketones Negative (Negative) Urine Blood 1+ /uL (Negative) H Urine Nitrite Negative (Negative) Urine Bilirubin 1+ (Negative) H Urine Urobilinogen 2 mg/dL (Negative) H Urine Leukocyte Esterase Negative /uL (Negative) Urine RBC 21 /hpf (0 - 4) Urine Microscopic WBC 50 /HPF (0-5) H Urine Squamous Epithelial Cells None seen /hpf (<5) Urine Bacteria None seen /hpf (None Seen) Urine Hyaline Casts Many /lpf (0 - 2) Urine Mucus Few (None Seen) Urine Creatinine Pending Urine Protein/Creatinine Ratio Pending Urine Sodium Pending Urine Glucose Normal mg/dL (Normal) Urine Total Protein Pending Blood Gas Results Test 06/26/24 21:34 06/27/24 00:34 06/27/24 04:51 Arterial Blood pH 7.266 (7.350-7.450) 7.128 (7.350-7.450) 7.139 (7.350-7.450) FiO2 % 100.0 50.0 30.0 Assessment/Plan Assessment/Plan Acute severe sepsis with septic shock Acute hypoxic respiratory failure Acute severe metabolic acidosis Acute kidney injury Hypokalemia Anemia Lactic acidosis Hypocalcemia Bilateral lung masses 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 History of colon cancer and surgery 4 years ago, patient was supposed to follow up after surgery for chemo and radiation but she did not History of hypertension History of type 2 diabetes Severe coagulopathy Disseminated intravascular coagulation Plan Mechanical intubation Broad-spectrum antibiotics empirically meropenem and vancomycin Nephrology consult Pulmonary consult Give fresh frozen plasma Vasopressors as needed Protonix IV Bumex drip per Nephrology Plan discussed with: Daughter, Son Date of Service: June 27, 2024 Billing Provider: SCOOBY MCADAMS MD Common Visit Codes: NOT BILLABLE SCOOBY MCADAMS MD June 27, 2024 13:38
[2024-06-27] MEDS: MEROPENEM 500MG IVPB 50 ML IV ONE (13:45)
[2024-06-27] MEDS: SODIUM ZIRCONIUM CYCL 10 GM PAK PO SCH (14:00)
[2024-06-27] MEDS: ALBUMIN 25% 100 ML IV SCH (14:32)
--- NOTE | 2024-06-27 14:54 | DVHINCON2 ---
GI Consult Consult Note GI consult note Date of Consultation: 06/27/2024 Chief Complaint: Lower GI bleed Referring Physician: Dr. Amaral H&P: 74-year-old female with past medical history of hypertension, diabetes, colon cancer, presented to ER with shortness of breath. Patient is intubated and sedated. History from chart, RN and family at bedside. According to the son at bedside who is also the caregiver patient was noted to have shortness of breath, abdominal swelling and altered level of consciousness with weakness. Patient is status post fall 1-2 weeks ago, and has been bed-bound since that time. Patient also had decreased appetite for this past week and has weight loss unsure of how many lb. Patient has loose stool about three episodes every day, history of hemorrhoids and was noted to have red blood with bowel movement. No reports of melena. Status post colonoscopy four years ago with removal of mass, which was cancerous, and patient did not undergo any subsequent radiation or chemotherapy Past Medical History: Diabetes, hypertension, colon cancer Past Surgical History: Denies per chart Social History: NO smoking, drinking ETOH and use of illegal drugs. Family History: Noncontributory Review of Systems: As above Physical exam: General: Patient is intubated and sedated Chest: lung felipe clear to auscultation Heart: RRR, no murmur Abdomen: Moderate-distended, +BS Labs: Labs Test 06/27/24 11:27 06/27/24 11:25 06/27/24 11:03 06/27/24 06:40 Range/Units POC Glucose 91 70-106 mg/dl Influenza Type A Antigen Negative Negative Influenza Type B Antigen Negative Negative SARS-CoV-2 Antigen (Rapid) Negative NEGATIVE Prothrombin Time 60.8 H 9.3-11.8 sec Prothrombin Time INR 6.95 *H 0.9-1.15 Activated Partial Thromboplast Time 57.2 H 24.5-34.5 SEC Sodium Level 139 136-145 mmol/L Potassium Level 6.7 *H 3.5-5.1 mmol/L Chloride Level 107 98-107 mmol/L Carbon Dioxide Level 13 L 20-31 mmol/L Anion Gap 19 H 5-15 Blood Urea Nitrogen 46 H 9-23 mg/dL Creatinine 3.31 H 0.550-1.02 mg/dL Glomerular Filtration Rate Calc 14 >90 mL/min BUN/Creatinine Ratio 13.9 10.0-20.0 Serum Glucose 98 74-106 mg/dL Uric Acid 14.9 H 3.1-7.8 mg/dL Calcium Level 7.6 L 8.7-10.4 mg/dL Phosphorus Level 9.9 H 2.4-5.1 mg/dL Lactic Acid Level 9.6 *H 0.4-2.0 mmol/L Test 06/27/24 05:05 06/27/24 04:51 06/27/24 00:34 06/27/24 00:20 Range/Units White Blood Count 29.5 H 4.4-10.8 10^3/uL Red Blood Count 3.17 L 4.0-5.20 10^6/uL Hemoglobin 9.1 #L 12.2-16.2 g/dL Hematocrit 30.8 #L 36.0-46.0 % Mean Corpuscular Volume 97.1 80.0-100.0 fL Mean Corpuscular Hemoglobin 28.7 28.0-32.0 pg Mean Corpuscular Hemoglobin Concent 29.6 L 32.0-36.0 g/dL Red Cell Distribution Width 20.0 H 11.8-14.3 % Platelet Count 260 140-450 10^3/uL Mean Platelet Volume 7.9 6.9-10.8 fL Neutrophils (%) (Auto) 37.0-80.0 % Lymphocytes (%) (Auto) 10.0-50.0 % Monocytes (%) (Auto) 0.0-12.0 % Basophils (%) (Auto) 0.0-2.0 % Neutrophils # (Auto) 1.6-8.6 10 ^3/uL Lymphocytes # (Auto) 0.4-5.4 10 ^3/uL Monocytes # (Auto) 0-1.3 10 ^3/uL Differential Total Cells Counted 100.0 100 Neutrophils % (Manual) 91 H 37.0-80.0 Band Neutrophils % (Manual) 0 Lymphocytes % (Manual) 5 L 10.0-50.0 Monocytes % (Manual) 4 0-12 Eosinophils % (Manual) 0 0-7 Basophils % (Manual) 0 0.0-2.0 Metamyelocytes % (manual) 0 Myelocytes % (Manual) 0 Promyelocytes % (Manual) 0 Blast Cells % (Manual) 0 Reactive Lymphocytes 0 Platelet Estimate Adequate Anisocytosis (manual) Slight Target Cells Few Ammonia 159 *H 11-32 umol/L Blood Gas Specimen Type Arterial Blood Gas Sample Site Right radial Blood Gas Patient Temperature 37.0 Arterial Blood Date Drawn [id number] Arterial Blood pH 7.139 *L 7.350-7.450 Arterial Blood Partial Pressure CO2 22.5 L 32.0-45.0 mmHg Arterial Blood Partial Pressure O2 106.3 83.0-108.0 mmHg Arterial Blood HCO3 7.5 L 21.0-28.0 mmol/L Arterial Blood Oxygen Saturation 96.9 94.0-98.0 % Arterial Blood Base Excess -19.8 L -2.0-3.0 mmol/L Arterial Blood Oxyhemoglobin 96.4 94.0-98.0 % Arterial Blood Carboxyhemoglobin 0.2 L 0.5-1.5 % Arterial Blood Methemoglobin 0.3 0.0-1.5 % Michael Test Modified Blood Gas Total Hemoglobin 9.30 L 12.0-16.0 g/dL Blood Gas Set Respiration Rate 18.0 Blood Gas Modality Vent - ac FiO2 % 30.0 Blood Gas Tidal Volume 500.0 Blood Gas PEEP or CPAP 5.0 Blood Gas Critical Value Read Back Yes Blood Gas Notified Whom marcus Barkley, data communications analyst Blood Gas Notified Time [id number] Blood Gas Notified By marcus Bonilla, yvette Blood Gas Spontaneous Rate 18 Urine Color Dark-orange Yellow Urine Clarity Ex.turbid Clear Urine pH 5.0 5.0-9.0 Urine Specific [place] 1.021 1.001-1.035 Urine Protein 1+ H Negative Urine Ketones Negative Negative Urine Blood 1+ H Negative /uL Urine Nitrite Negative Negative Urine Bilirubin 1+ H Negative Urine Urobilinogen 2 H Negative mg/dL Urine Leukocyte Esterase Negative Negative /uL Urine RBC 21 0 - 4 /hpf Urine Microscopic WBC 50 H 0-5 /HPF Urine Squamous Epithelial Cells None seen <5 /hpf Urine Bacteria None seen None Seen /hpf Urine Hyaline Casts Many 0 - 2 /lpf Urine Mucus Few None Seen Urine Glucose Normal Normal mg/dL Urine Opiates Screen Neg NEGATIVE Urine Fentanyl Screen Neg NEGATIVE Urine Barbiturates Screen Neg NEGATIVE Urine Phencyclidine Screen Neg NEGATIVE Urine Amphetamines Screen Neg NEGATIVE Urine Benzodiazepines Screen Neg NEGATIVE Urine Cocaine Screen Neg NEGATIVE Urine Cannabinoids Screen Neg NEGATIVE Test 06/27/24 00:16 06/26/24 21:34 06/26/24 21:30 Range/Units D-Dimer, Quantitative 17.01 H 0.0-0.49 mg/L FEU Troponin I High Sensitivity 13 </=34 ng/L Blood Gas Liter Flow 15.00 Tear Drop Cells Few [place] Cells Few Magnesium Level 2.3 1.6-2.6 mg/dL Total Bilirubin 4.8 H 0.2-1.0 mg/dL Aspartate Amino Transferase (AST) 278 H 13-40 U/L Alanine Aminotransferase (ALT) 55 H 7-40 U/L Alkaline Phosphatase 436 H 46-116 U/L B-Type Natriuretic Peptide 134.34 0-100 pg/mL Total Protein 5.9 5.7-8.2 g/dL Albumin 2.1 L 3.2-4.8 g/dL Lipase 25 12-53 U/L Thyroid Stimulating Hormone (TSH) 2.44 0.55-4.78 uIU/mL Plasma/Serum Blood Alcohol 4.9 <10 mg/dL Imaging: CT chest abdomen and pelvis IMPRESSION: 1. Many soft tissue masses and pathologically enlarged lymph nodes throughout the chest, abdomen and pelvis, including bilateral pulmonary masses, retroperitoneal and pelvic lymphadenopathy and bilateral pelvic masses. These findings are consistent with diffuse metastatic disease of unknown primary origin. 2. Marked hepatomegaly and parenchymal calcification. 3. Right mainstem bronchus intubation. Recommend retraction by up to 4 cm. 4. Small right pleural effusion. Assessment: Severe anemia Acute severe sepsis Severe metabolic acidosis Lactic acidosis History of colon cancer Diffuse metastatic disease of unknown primary per CT Coagulopathy Plan: Discussed with Dr. Meza CEA, AFP, monitor labs Ultrasound of abdomen Hepatitis panel Discussed plan with daughter and son at bedside and RN Thank you for this consult Date of Service: June 27, 2024 Billing Provider: RICK WEST Common Visit Codes: CONSULT ONLY Consultation Codes: [id number] CONSULT <60MIN RICK WEST June 27, 2024 14:54
--- NOTE | 2024-06-27 15:24 | DVH ---
INDICATION: ABD DISTENTION TECHNIQUE: Multiple real-time sonographic images of the abdomen were obtained. COMPARISON: None FINDINGS: Hepatic cirrhosis with heterogeneous masses seen throughout the liver, neoplastic process c an not be excluded. MRI liver mass protocol is recommended. Small volume ascites. The largest hetero geneous mass measures 6 cm. The gallbladder wall measures 0.35 mm and is normal in size. Gallbladder sludge. The common duct m easures The right kidney measures 10cm and is normal in size. The right renal echogenicity, contour and avery ical thickness are within normal limits. No hydronephrosis or large masses are seen. The left kidney measures 11cm and is normal in size. The left renal echogenicity, contour, and corti sebastien thickness are within normal limits. No hydronephrosis or large masses are seen. The spleen measures 8cm, within normal limits. The echogenicity is within normal limits. The pancreas is not well visualized. The aorta is not well visualized. The ivc is not well visualized. IMPRESSION: Hepatic cirrhosis with heterogeneous masses seen throughout the liver, neoplastic process can not be excluded. MRI liver mass protocol is recommended. Small volume ascites. The largest heterogeneous ma ss measures 6 cm.
--- NOTE | 2024-06-27 15:33 | DVH ---
Bilateral lower extremity venous duplex Clinical History: R/O DVT Comparison: None Findings: Duplex Doppler evaluation of the deep venous systems of both lower extremities from the common femora l veins to the popliteal veins including color Doppler and spectral/pulsed waveform analysis was perf ormed. RIGHT SIDE: The common femoral vein demonstrates appropriate compressibility and waveform variability. There is compressibility/patency of the great saphenous vein at the proximal thigh. The femoral vein demonstrates appropriate compressibility and waveform variability. The deep femoral vein demonstrates appropriate compressibility and waveform variability. The popliteal vein demonstrates appropriate compressibility and waveform variability. There is normal compressibility at the tibioperoneal trunk. LEFT SIDE: The common femoral vein demonstrates appropriate compressibility and waveform variability. There is compressibility/patency of the great saphenous vein at the proximal thigh. The femoral vein demonstrates appropriate compressibility and waveform variability. The deep femoral vein demonstrates appropriate compressibility and waveform variability. The popliteal vein demonstrates appropriate compressibility and waveform variability. There is normal compressibility at the tibioperoneal trunk. 3 x 3 x 2 cm mass in the left groin. Percutaneous biopsy recommended IMPRESSION: No right or left femoropopliteal venous thrombosis. 3 x 3 x 2 cm mass in the left groin. Percutaneous biopsy recommended END IMPRESSION: If clinical concern/symptoms persist or worsen, short-interval follow-up study is suggested.
[2024-06-27] MEDS: BUMETANIDE INJECTION 12.5 MG in GIVE UN-DILUTED 0 ML IV SCH (16:19)
[2024-06-27 17:03] LABS: Sodium 136 mmol/L (136-145)
[2024-06-27 17:04] LABS: Anion Gap 18.00001 (5-15)
[2024-06-27 17:09] LABS: BUN/Creatinine Ratio 10.8 (10.0-20.0)
[2024-06-27 17:30] LABS: Base Excess -16.6 mmol/L (-2.0-3.0)
--- NOTE | 2024-06-27 17:32 | DVHCONRES ---
Date Seen: June 27, 2024 Resident Creating Document: ARJUN PETERSON History of Present Illness This is a 73-year-old female with PMHx abdominal carcinoma status post surgery at [facility], refused chemotherapy-details unknown who was BIBA due to the chief complaint of generalized weakness and inability to eat or drink. Per patient's family who she lives with, patient experienced a fall 5 weeks back and hurt her right leg, he has been bed-bound since then. She did not follow up with the visits physician or go to the ER. Fallen even, patient has been experiencing generalized weakness, her appetite has been low and she has not been eating or drinking. Over the past week patient has been experiencing alternating diarrhea and constipation. EMS was called last week by the family but the patient declined receive any medical attention. 06/26-family reportedly called EMS again and EMS reported as her blood pressure is too low, family took the patient forcefully to the ER. Daughter also reports patient has been making less urine over the past days, urinating only once or twice daily. On arrival to the ER, patient was hypotensive 89/54 mmHg, saturating 88, 97% with non-rebreather mask. Patient was Intubated immediately. H&H 6.09/10, transaminitis, potassium elevated at 7, lactic acidosis. Past medical/surgical history: Unknown source of carcinoma probably abdominal per family-details unknown status post surgery, refused chemotherapy Home medications: Losartan, atorvastatin, ferrous sulfate, hydroxyzine Social history: Lives with family, denies smoking/drinking/drug use Patient seen and examined in the ER. Two packed RBCs transfused by the primary, discontinued half NS, started D5 with bicarb. Allergies: Coded Allergies: NO KNOWN ALLERGIES (Unverified , 06/26/24) Current Medications Current Medications Medications (Trade) Dose Ordered Sig/Tavares Route PRN Reason Start Time Stop Time Status Last Admin Norepinephrine Bitartrate 250 ml @ 3.75 mls/hr Q24H IV 06/26/24 21:45 06/27/24 02:36 Norepinephrine Bitartrate 250 ml @ 3.75 mls/hr Q24H IV 06/26/24 21:45 06/26/24 22:08 DC Midazolam HCl 50 ml @ 1 mls/hr Q24H IV 06/26/24 22:15 06/27/24 02:32 Vasopressin 20 units/Sodium Chloride 100 ml @ 9 mls/hr Q11H7M IV 06/27/24 01:00 06/27/24 08:27 Piperacillin Sod/ Tazobactam Sod 100 ml @ 25 mls/hr Q8HR IV 06/27/24 06:00 06/27/24 13:46 DC 06/27/24 06:00 Vancomycin HCl 0 ml @ 0 mls/hr UD IV 06/27/24 03:30 Diagnostic Test (Pha) (Accu-Chek Comfort Curve T) 1 strip IQ4HR 06/27/24 04:00 06/27/24 16:00 Insulin Human Regular (InsuLIN R) IQ4HR SC 06/27/24 04:00 Dextrose 50 ml UD PRN IV Blood Sugar LESS THAN 60 06/27/24 03:30 Ondansetron HCl (Zofran) 4 mg Q4HP PRN IV NAUSEA / VOMITING 06/27/24 03:30 Acetaminophen (Tylenol Tablet) 650 mg Q6HP PRN PO PAIN SCALE 1-3 OR TEMP>100.4 06/27/24 03:30 Nitroglycerin (Ntrostat Sublingual) 0.4 mg Q5MINP PRN SL FOR CHEST PAIN 06/27/24 03:30 Morphine Sulfate 2 mg Q30M PRN IV FOR CHEST PAIN 06/27/24 03:30 Pantoprazole Sodium 50 ml @ 10 mls/hr Q5H IV 06/27/24 03:30 06/27/24 13:30 Bumetanide 12.5 mg/Miscellaneous 50 ml @ 2 mls/hr Q24H IV 06/27/24 11:45 06/27/24 16:19 Albumin Human 100 ml @ 100 mls/hr Q8H IV 06/27/24 12:45 06/28/24 05:44 06/27/24 14:32 Zirconium Oxide (Lokelma) 10 gm TID PO 06/27/24 14:00 06/29/24 06:01 Sodium Bicarbonate 150 ml/Dextrose 1,150 ml @ 75 mls/hr [id number] IV 06/27/24 13:00 06/27/24 13:00 Meropenem 50 ml @ 17 mls/hr Q12HR IV 06/27/24 22:00 Vital Signs Vital Signs Date Time Temp Pulse Resp B/P (MAP) Pulse Ox O2 Delivery O2 Flow Rate FiO2 06/27/24 16:20 92 20 105/59 (74) 97 30 06/27/24 12:00 99.1 99.1 06/27/24 07:45 Mechanical Ventilator+ 06/26/24 22:00 15 Physical Exam Patient lying in the bed in ER, intubated and mechanically ventilated, RASS -4 General: Well-built, afebrile, palor, mucosae are dry Cardiovascular: Regular S1 and S2. Systolic ejection murmur heard at the left sternal border , no gallops or rubs. No JVD elevation. Bilateral 3+ pitting edema Respiratory: Normal B/L air entry on room air. Clear lung sounds on auscul tation Abdomen: Soft, distended, hyperactive bowel sounds, no rebound tenderness, no o rganomegaly, no masses Genitourinary: Deferred MSK/skin: Bruises seen on bilateral lower extremities Labs/Diagnostic Data Labs Test 06/27/24 16:41 06/27/24 16:21 06/27/24 15:08 06/27/24 11:25 Range/Units POC Glucose 68 L 70-106 mg/dl Carcinoembryonic Antigen 500.00 <=5.0 ng/mL Influenza Type A Antigen Negative Negative Influenza Type B Antigen Negative Negative SARS-CoV-2 Antigen (Rapid) Negative NEGATIVE Test 06/27/24 11:03 06/27/24 06:40 06/27/24 05:05 06/27/24 04:51 Range/Units Prothrombin Time 60.8 H 9.3-11.8 sec Prothrombin Time INR 6.95 *H 0.9-1.15 Activated Partial Thromboplast Time 57.2 H 24.5-34.5 SEC Uric Acid 14.9 H 3.1-7.8 mg/dL Phosphorus Level 9.9 H 2.4-5.1 mg/dL Lactic Acid Level 9.6 *H 0.4-2.0 mmol/L White Blood Count 29.5 H 4.4-10.8 10^3/uL Red Blood Count 3.17 L 4.0-5.20 10^6/uL Hemoglobin 9.1 #L 12.2-16.2 g/dL Hematocrit 30.8 #L 36.0-46.0 % Mean Corpuscular Volume 97.1 80.0-100.0 fL Mean Corpuscular Hemoglobin 28.7 28.0-32.0 pg Mean Corpuscular Hemoglobin Concent 29.6 L 32.0-36.0 g/dL Red Cell Distribution Width 20.0 H 11.8-14.3 % Platelet Count 260 140-450 10^3/uL Mean Platelet Volume 7.9 6.9-10.8 fL Neutrophils (%) (Auto) 37.0-80.0 % Lymphocytes (%) (Auto) 10.0-50.0 % Monocytes (%) (Auto) 0.0-12.0 % Basophils (%) (Auto) 0.0-2.0 % Neutrophils # (Auto) 1.6-8.6 10 ^3/uL Lymphocytes # (Auto) 0.4-5.4 10 ^3/uL Monocytes # (Auto) 0-1.3 10 ^3/uL Differential Total Cells Counted 100.0 100 Neutrophils % (Manual) 91 H 37.0-80.0 Band Neutrophils % (Manual) 0 Lymphocytes % (Manual) 5 L 10.0-50.0 Monocytes % (Manual) 4 0-12 Eosinophils % (Manual) 0 0-7 Basophils % (Manual) 0 0.0-2.0 Metamyelocytes % (manual) 0 Myelocytes % (Manual) 0 Promyelocytes % (Manual) 0 Blast Cells % (Manual) 0 Reactive Lymphocytes 0 Platelet Estimate Adequate Anisocytosis (manual) Slight Target Cells Few Ammonia 159 *H 11-32 umol/L Blood Gas Specimen Type Arterial Blood Gas Sample Site Right radial Blood Gas Patient Temperature 37.0 Arterial Blood Date Drawn [id number] Arterial Blood pH 7.139 *L 7.350-7.450 Arterial Blood Partial Pressure CO2 22.5 L 32.0-45.0 mmHg Arterial Blood Partial Pressure O2 106.3 83.0-108.0 mmHg Arterial Blood HCO3 7.5 L 21.0-28.0 mmol/L Arterial Blood Oxygen Saturation 96.9 94.0-98.0 % Arterial Blood Base Excess -19.8 L -2.0-3.0 mmol/L Arterial Blood Oxyhemoglobin 96.4 94.0-98.0 % Arterial Blood Carboxyhemoglobin 0.2 L 0.5-1.5 % Arterial Blood Methemoglobin 0.3 0.0-1.5 % Michael Test Modified Blood Gas Total Hemoglobin 9.30 L 12.0-16.0 g/dL Blood Gas Set Respiration Rate 18.0 Blood Gas Modality Vent - ac FiO2 % 30.0 Blood Gas Tidal Volume 500.0 Blood Gas PEEP or CPAP 5.0 Blood Gas Critical Value Read Back Yes Blood Gas Notified Whom marcus Barkley, eric Blood Gas Notified Time [id number] Blood Gas Notified By marcus Bonilla medication nurse Test 06/27/24 00:34 06/27/24 00:20 06/27/24 00:16 06/26/24 21:34 Range/Units Blood Gas Spontaneous Rate 18 Urine Color Dark-orange Yellow Urine Clarity Ex.turbid Clear Urine pH 5.0 5.0-9.0 Urine Specific [place] 1.021 1.001-1.035 Urine Protein 1+ H Negative Urine Ketones Negative Negative Urine Blood 1+ H Negative /uL Urine Nitrite Negative Negative Urine Bilirubin 1+ H Negative Urine Urobilinogen 2 H Negative mg/dL Urine Leukocyte Esterase Negative Negative /uL Urine RBC 21 0 - 4 /hpf Urine Microscopic WBC 50 H 0-5 /HPF Urine Squamous Epithelial Cells None seen <5 /hpf Urine Bacteria None seen None Seen /hpf Urine Hyaline Casts Many 0 - 2 /lpf Urine Mucus Few None Seen Urine Glucose Normal Normal mg/dL Urine Opiates Screen Neg NEGATIVE Urine Fentanyl Screen Neg NEGATIVE Urine Barbiturates Screen Neg NEGATIVE Urine Phencyclidine Screen Neg NEGATIVE Urine Amphetamines Screen Neg NEGATIVE Urine Benzodiazepines Screen Neg NEGATIVE Urine Cocaine Screen Neg NEGATIVE Urine Cannabinoids Screen Neg NEGATIVE D-Dimer, Quantitative 17.01 H 0.0-0.49 mg/L FEU Troponin I High Sensitivity 13 </=34 ng/L Blood Gas Liter Flow 15.00 Test 06/26/24 21:30 Range/Units Tear Drop Cells Few Armando Cells Few Magnesium Level 2.3 1.6-2.6 mg/dL Total Bilirubin 4.8 H 0.2-1.0 mg/dL Aspartate Amino Transferase (AST) 278 H 13-40 U/L Alanine Aminotransferase (ALT) 55 H 7-40 U/L Alkaline Phosphatase 436 H 46-116 U/L B-Type Natriuretic Peptide 134.34 0-100 pg/mL Total Protein 5.9 5.7-8.2 g/dL Albumin 2.1 L 3.2-4.8 g/dL Lipase 25 12-53 U/L Thyroid Stimulating Hormone (TSH) 2.44 0.55-4.78 uIU/mL Plasma/Serum Blood Alcohol 4.9 <10 mg/dL Microbiology Date/Time Source Procedure Growth Status 06/26/24 21:30 Blood Blood Culture - Preliminary Resulted Assessment Acute kidney injury, rule out tumor lysis syndrome and ATN Diffuse metastatic disease, primary source unknown Septic shock requiring pressor support Hypovolemic shock Acute blood loss anemia requiring transfusion Multiorgan failure Hyperkalemic crisis Lactic acidosis Anion gap metabolic acidosis Hypoglycemia Transaminitis, cholestatic pattern ? Cirrhosis Hypoalbuminemia Hyperammonemia Hyperuricemia Hyperphosphatemia Potassium 7 Phosphorus 9.9 Corrected Calcium 9.2 Uric acid 14.9 Abdominal ultrasound showing hepatic cirrhosis with heterogeneous mass seen throughout the liver, neoplasm can not be excluded. CT chest/abdomen/pelvis showing many soft tissue mass throughout chest/abdomen/pelvis along with diffuse lymphadenopathy. Plan: Patient received 1 dose of calcium gluconate IV along with multiple doses of sodium bicarbonate IV pushes. 1 dose of showed calcium gluconate ordered, Lokelma t.i.d. for 6 doses started For kaliuresis, we started Lasix 60 mg IV along with D5W at 75 cc, each L cont aining 150 cc of sodium bicarb Three doses of albumin 25% Q 8 hourly Prelim blood culture showing Gram-positive cocci in clusters Continue IV antibiotics vanc and meropenem Status post 2 packed RBCs transfusion, FFP pending Uric acid and phosphate for the a.m. ordered Strict I&Os, urine studies pending Patient is on norepinephrine and vasopressin at this time. Pantoprazole drip Case discussed with patient's daughter and son at bedside in which all questions have been answered Plan discussed with Dr. Hernandez Addendum Patient seen and examined, plan discussed with resident. Agree with above, we will follow closely concern for tumor lysis syndrome -recommend rasburicase, Hemo dialysis -will inform analytical sciences director for HD catheter if family agreeable medical management of hyperkalemia bicarb drip,bumex drip Plan discussed with: Daughter, Son NICHOLASBELINDAARJUN RESIDENT June 27, 2024 17:32 ADONAY HERNANDEZ MD June 27, 2024 18:55
[2024-06-27 18:06] LABS: Chloride 108 mmol/L (98-107)
[2024-06-27 18:07] LABS: Blood Urea Nitrogen 37 mg/dL (9-23); Glucose 70 mg/dL (74-106)
[2024-06-27 18:09] LABS: Carbon Dioxide < 10 mmol/L (20-31); Potassium 7.1 mmol/L (3.5-5.1)
[2024-06-27] MEDS: InsuLIN REG 1unit/0.01ml Soln (100units/ml) SC ONE (18:30)
[2024-06-27] MEDS: SODIUM CHL 0.9% 1000 ML BAG XX ONE (19:00)
[2024-06-27] MEDS: SODIUM ZIRCONIUM CYCL 10 GM PAK GT SCH (19:30)
--- NOTE | 2024-06-27 21:25 | DVHNC2 ---
Central Line Recorder of insertion practice: Night [employer] Magistrate Occupation of dictaphone transcriber: Name of dictaphone transcriber (irene Castle) Indication: Other (Hemodialysis) Room prepared for procedure: Yes Night [employer] Magistrate performed hand hygien: Yes Maximal sterile barrier precau: Mask/Eye shield, Sterile gown, Cap, Sterlie gloves, Large sterlie drape Skin Preparation: Providine iodine Skin preparation completely dr: Yes Insertion site: Right, Internal jugular Central line catheter type: Dialysis non-tunneled Number of lumens: 2 Central line exchanged over a: No Antiseptic ointment applied to: Yes Post Assessment: Chest X-Ray Informed consent obtained: Yes Risks/benefits/alt described: Yes Notes Procedure note: A time out was performed. My hands were washed immediately prior to the procedure. I wore a surgical cap, mask with protective eyewear, full gown and sterile gloves throughout the procedure. The patient was placed in Trendelenburg position. RIGHT chest region was prepped using chlorhexidine scrub and draped in sterile fashion using a full drape and sterile probe cover and sterile gel employed. The medial and lateral heads of the sternocleidomastoid muscle were identified as was the carotid pulse. The Internal Jugular vein was identified using the ultrasound. Anesthesia was achieved over the vein using 1% lidocaine. Using real-time out of plane guidance, the introducer needle was inserted into the Internal Jugular vein under direct ultrasound visualization. Venous blood was withdrawn. The syringe was removed and a guidewire was advanced into the introducer needle. The guidewire was visualized in the Internal Jugular Vein by ultrasound. A small incision was made at the skin surface with a scalpel and the introducer needle was exchanged for a dilator over the guidewire. After appropriate dilation was obtained, the dilator was exchanged over the wire for a dialysis catheter. The wire was removed and the catheter was sutured at 2 [address]. A sterile sorbaview shield was placed over the catheter at the insertion site. The patient tolerated the procedure without any hemodynamic compromise. At time of procedure completion, all ports aspirated and flushed properly. Post-procedure chest x-ray showed correct position of the catheter. Estimated blood loss is less than [address] Sullivan Date of Service: June 27, 2024 Billing Provider: MIKAL SULLIVAN MD Common Visit Codes: PROCEDURE ONLY Procedure Codes: 86106-NXVBFT NON-TUNNEL CV CATH IRENE CASTLE June 27, 2024 21:24 MIKAL SULLIVAN MD July 02, 2024 21:50
--- NOTE | 2024-06-27 21:35 | DVH ---
EXAM: XY CHEST XRAY 1 VIEW TECHNIQUE: Single frontal chest radiograph CLINICAL HISTORY: COLIN CATHETER PLACEMENT AND VERIFICATION COMPARISON: XY CHEST XRAY 1 VIEW on DOS: 06/27/24, XY CHEST PORTABLE on DOS: 06/26/24, XY CHEST XRAY 1 EW on DOS: 06/26/24 Findings/Impression: Frontal chest radiograph demonstrates no acute osseous or superficial soft tissue abnormalities. Endotracheal tube terminates 4.3 cm from the melissa. Enteric tube is overlying the plane of the stoma ch. Left IJ catheter terminates near the superior cavoatrial junction. Right IJ catheter terminates in the right atrium. The trachea is midline. The cardiac silhouette and mediastinum are within normal limits. Pulmonary vascular congestion and/or mild pulmonary edema. No pneumothorax, pleural effusions, or consolidations.
[2024-06-27] MEDS: DOPamine 1600MCG/ML D5W 250 ML IV SCH (21:46)
[2024-06-27] MEDS: DEXTROSE 10% 1,000 ML IV ONE (21:58)
[2024-06-27 22:22] LABS: Hemoglobin 7.8 g/dL (12.2-16.2)
[2024-06-27 22:24] LABS: Hematocrit 25.2 % (36.0-46.0); Mean Corpuscular Hemoglobin 28.4 pg (28.0-32.0); Mean Corpuscular Hgb Conc. 30.8 g/dL (32.0-36.0); Mean Corpuscular Volume 92.3 fL (80.0-100.0); Platelet Count (auto) 194 10^3/uL (140-450); Red Blood Cells 2.73 10^6/uL (4.0-5.20); Red Cell Distribution Width 19.6 % (11.8-14.3); White Blood Cell 22.5 10^3/uL (4.4-10.8)
[2024-06-27 22:28] LABS: Basophils % (manual) 0 (0.0-2.0); Blast Cells 0; Eosinophils % (manual) 0 (0-7); Metamyelocytes % 0; Myelocytes % 0; Promyelocytes % 0; Reactive Lymphocytes 0
[2024-06-27 22:31] LABS: Anion Gap 18 (5-15); BUN/Creatinine Ratio 13.9 (10.0-20.0); Glucose 88 mg/dL (74-106); Sodium 138 mmol/L (136-145)
[2024-06-27 22:32] LABS: Alanine Aminotransferase 100 U/L (7-40); Albumin 1.9 g/dL (3.2-4.8); Alkaline Phosphatase 341 U/L (46-116); Aspartate Aminotransferase 673 U/L (13-40); Bilirubin, Total 5.4 mg/dL (0.2-1.0); Blood Urea Nitrogen 46 mg/dL (9-23); Calcium 6.9 mg/dL (8.7-10.4); Carbon Dioxide 13 mmol/L (20-31); Chloride 107 mmol/L (98-107)
[2024-06-27 22:33] LABS: Potassium 6.7 mmol/L (3.5-5.1)
[2024-06-27 22:56] LABS: Band Neutrophils % (manual) 3; Lymphocytes % (manual) 8 (10.0-50.0); Monocytes % (manual) 3 (0-12); Platelet Estimate Adequate
[2024-06-27] MEDS: MEROPENEM 500MG IVPB 50 ML IV SCH (23:59)
[2024-06-28] VITALS (116 sets, daily range): BP systolic 89–123; BP diastolic 1–72; PULSE 91–104; RESP 16–20; TEMP 96.3–98.4; O2SAT 91–100
[2024-06-28] MEDS: BUMETANIDE 1mg/4ml VIAL (0.25mg/ml) ONE (00:57)
[2024-06-28] MEDS: BUMETANIDE INJECTION 40 ML ONE (00:57)
[2024-06-28 05:25] LABS: Hematocrit 25.1 % (36.0-46.0); Mean Corpuscular Hemoglobin 29.2 pg (28.0-32.0); Mean Corpuscular Volume 91.1 fL (80.0-100.0); Platelet Count (auto) 160 10^3/uL (140-450); Red Blood Cells 2.75 10^6/uL (4.0-5.20); Red Cell Distribution Width 19.7 % (11.8-14.3); White Blood Cell 24.1 10^3/uL (4.4-10.8)
[2024-06-28 05:41] LABS: Anion Gap 20 (5-15); BUN/Creatinine Ratio 13.8 (10.0-20.0); Chloride 103 mmol/L (98-107); Glucose 75 mg/dL (74-106); Sodium 140 mmol/L (136-145)
[2024-06-28 05:53] LABS: Alanine Aminotransferase 104 U/L (7-40); Albumin 2.1 g/dL (3.2-4.8); Alkaline Phosphatase 333 U/L (46-116); Aspartate Aminotransferase 717 U/L (13-40); Blood Urea Nitrogen 38 mg/dL (9-23); Carbon Dioxide 17 mmol/L (20-31); Phosphorus 7.8 mg/dL (2.4-5.1); Potassium 5.4 mmol/L (3.5-5.1); Total Protein 4.8 g/dL (5.7-8.2); Uric Acid 11.6 mg/dL (3.1-7.8)
[2024-06-28 05:55] LABS: Base Excess -9.9 mmol/L (-2.0-3.0)
--- NOTE | 2024-06-28 06:00 | DVH ---
EXAM: XY CHEST XRAY 1 VIEW HISTORY: INTUBATED COMPARISON: XY CHEST XRAY 1 VIEW on DOS: 06/27/24, XY CHEST XRAY 1 VIEW on DOS: 06/27/24, XY CHEST PORTAB LE on DOS: 06/26/24, XY CHEST XRAY 1 VIEW on DOS: 06/26/24, CT scan of the chest dated 06/26/2024 TECHNIQUE: Portable AP view of the chest was performed. FINDINGS: Endotracheal tube is identified with its tip 4.8 cm above the melissa. OG tube, right IJ Cordis sheath , and left IJ central line are re-identified. Lung volumes are somewhat low. There is diffuse inters titial prominence. No pneumothorax. Bilateral lung masses are better characterized on prior CT scan . The heart is not enlarged. IMPRESSION: 1. Mechanical ventilation with tubes and lines as above. 2. Diffuse interstitial prominence may be due to reactive airways disease or mild CHF. This appearan ce is likely exaggerated by low lung volumes. 3. Bilateral lung masses, better characterized on CT scan of the chest dated 06/27/2024.
[2024-06-28 06:01] LABS: Basophils % (manual) 0 (0.0-2.0); Blast Cells 0; Eosinophils % (manual) 0 (0-7); Metamyelocytes % 0; Promyelocytes % 0; Reactive Lymphocytes 0
[2024-06-28 06:56] LABS: Band Neutrophils % (manual) 2; Large Platelets FEW; Lymphocytes % (manual) 6 (10.0-50.0); Monocytes % (manual) 6 (0-12); Myelocytes % 2; Platelet Estimate Adequate
[2024-06-28 09:51] LABS: Prothrombin Time 40.1 sec (9.3-11.8)
[2024-06-28 09:54] LABS: INR 4.38 (0.9-1.15)
[2024-06-28] MEDS ORDERED: RASBURICASE IV SCH (10:00)
[2024-06-28 10:18] LABS: Hepatitis B Core Total AB Negative (Negative)
--- NOTE | 2024-06-28 10:23 | ECG ---
[facility] Test Date: 2024-06-26 Test Time: 21:12:15 Pat Name: KMII GERBER Department: ED Room: [address] [place] [address] Gender: F Human Services Assistant: GRETCHEN : 1950 Requested By: DELROY STUART Order Number: [id number] Reading MD: Masoud Rowland Measurements Intervals Drury Rate: 155 P: 0 NH: 68 QRS: -79 QRSD: 104 T: 177 QT: 387 QTc: 622 Interpretive Statements Uncertain rhythm: review Low voltage, extremity and precordial leads Abnormal R-wave progression, late transition Consider inferior infarct Nonspecific T abnrm, anterolateral leads Prolonged QT interval Electronically Signed On 07-03-2024 11:59:42 PDT by Masoud Rowland Please click the below link to view image of tracing.
--- NOTE | 2024-06-28 10:50 | DVHPN2 ---
Progress Note Date Seen: June 28, 2024 Resident Creating Document: ARJUN PETERSON RESIDENT Medical Necessity Reason Pt with a Central, PICC or Fol: Yes Subjective Review of Systems This is a 73-year-old female with PMHx abdominal carcinoma status post surgery at [facility], refused chemotherapy-details unknown who was BIBA due to the chief complaint of generalized weakness and inability to eat or drink. Per patient's family who she lives with, patient experienced a fall 5 weeks back and hurt her right leg, he has been bed-bound since then. She did not follow up with the visits physician or go to the ER. Fallen even, patient has been experiencing generalized weakness, her appetite has been low and she has not been eating or drinking. Over the past week patient has been experiencing alternating diarrhea and constipation. EMS was called last week by the family but the patient declined receive any medical attention. 06/26-family reportedly called EMS again and EMS reported as her blood pressure is too low, family took the patient forcefully to the ER. Daughter also reports patient has been making less urine over the past days, urinating only once or twice daily. On arrival to the ER, patient was hypotensive 89/54 mmHg, saturating 88, 97% with non-rebreather mask. Patient was Intubated immediately. H&H 6.7/, transaminitis, potassium elevated at 7, lactic acidosis. Past medical/surgical history: Unknown source of carcinoma probably abdominal per family-details unknown status post surgery, refused chemotherapy Home medications: Losartan, atorvastatin, ferrous sulfate, hydroxyzine Social history: Lives with family, denies smoking/drinking/drug use 06/27 - Patient seen and examined in the ER. Two packed RBCs transfused by the primary, discontinued half NS, started D5 with bicarb. Bumex drip started, Lokelma started. Dialysis ordered 06/28 - patient seen and examined in the ER. Overnight, underwent hemodialysis, nothing was taken out. Potassium decreased to 5 and 4. Review of Systems: RESPIRATORY:Abnormal Other Systems: Patient seen and examined by myself today on rounds with the medicine resident, I agree with his assessment and plan as documented in his note Objective vital signs Vital Sign Date Time Temp Pulse Resp B/P (MAP) Pulse Ox O2 Delivery O2 Flow Rate FiO2 06/28/24 09:59 100 19 101/64 (76) 97 30 06/28/24 06:46 Mechanical Ventilator+ 5/9/25 06:45 98.1 208.6 06/26/24 22:00 15 Total Intake and Output 06/27/24 06/27/24 06/28/24 15:00 23:00 07:00 Intake Total 986.25 ml 1475.5 ml 1997.550 ml Output Total 100 ml 100 ml Balance 986.25 ml 1375.5 ml 1897.550 ml medications Current Medications Medications Dose Ordered Sig/Tavares Route Start Time Stop Time Status Last Admin Dose Admin Norepinephrine Bitartrate 250 ml @ 3.75 mls/hr Q24H IV 06/26/24 21:45 06/28/24 01:18 33.75 MLS/HR Midazolam HCl 50 ml @ 1 mls/hr Q24H IV 06/26/24 22:15 06/28/24 04:26 7 MLS/HR Vasopressin 20 units/Sodium Chloride 100 ml @ 9 mls/hr Q11H7M IV 06/27/24 01:00 06/28/24 02:48 12 MLS/HR Vancomycin HCl 0 ml @ 0 mls/hr UD IV 06/27/24 03:30 Diagnostic Test (Pha) 1 strip IQ4HR 06/27/24 04:00 06/28/24 04:00 1 STRIP Insulin Human Regular IQ4HR SC 06/27/24 04:00 Dextrose 50 ml UD PRN IV 06/27/24 03:30 Ondansetron HCl 4 mg Q4HP PRN IV 06/27/24 03:30 Acetaminophen 650 mg Q6HP PRN PO 06/27/24 03:30 Nitroglycerin 0.4 mg Q5MINP PRN SL 06/27/24 03:30 Morphine Sulfate 2 mg Q30M PRN IV 06/27/24 03:30 Pantoprazole Sodium 50 ml @ 10 mls/hr Q5H IV 06/27/24 03:30 06/28/24 07:45 10 MLS/HR Sodium Bicarbonate 150 ml/Dextrose 1,150 ml @ 75 mls/hr [id number] IV 06/27/24 13:00 06/28/24 05:14 75 MLS/HR Meropenem 50 ml @ 17 mls/hr Q12HR IV 06/27/24 22:00 06/27/24 23:59 17 MLS/HR Patient Own Medication 16 mg DAILY IV 06/28/24 10:00 06/30/24 10:01 UNV Dopamine HCl/ Dextrose 250 ml @ 6.075 mls/ hr Q24H IV 06/27/24 19:30 06/27/24 21:46 6.075 MLS/HR Zirconium Oxide 10 gm Q8HR GT 06/27/24 19:30 06/29/24 14:01 Bumetanide 12.5 mg/Miscellaneous 50 ml @ 4 mls/hr [id number] IV 06/28/24 10:45 Examination Patient lying in the bed in ER, intubated and mechanically ventilated, RASS -4 General: Well-built, afebrile, palor, mucosae are dry Cardiovascular: Regular S1 and S2. Systolic ejection murmur heard at the left sternal border , no gallops or rubs. No JVD elevation. Bilateral 3+ pitting edema Respiratory: Normal B/L air entry on room air. Clear lung sounds on auscultation Abdomen: Soft, distended, hyperactive bowel sounds, no rebound tenderness, no organomegaly, no masses Genitourinary: Deferred MSK/skin: Bruises seen on bilateral lower extremities. Bilateral lower extremities have fluid-filled vesicles laboratory and microbiology Laboratory Tests 06/28/24 04:35 Test 06/28/24 04:35 Range/Units Serum Glucose 75 74-106 mg/dL Microbiology Date/Time Source Procedure Growth Status 06/26/24 21:30 Blood Blood Culture - Preliminary Resulted Labs and/or images reviewed: Labs reviewed by me, Image(s) reviewed by me Problem List/Assessment/Plan Problem List/Assessment/Plan Acute kidney injury, rule out tumor lysis syndrome and ATN Diffuse metastatic disease, primary source unknown Septic shock requiring pressor support Hypovolemic shock Acute blood loss anemia requiring transfusion Multiorgan failure Hyperkalemic crisis Lactic acidosis Anion gap metabolic acidosis Hypoglycemia Transaminitis, cholestatic pattern ? Cirrhosis Hypoalbuminemia Hyperammonemia Hyperuricemia Hyperphosphatemia Potassium 7 - > 5.4 Phosphorus 9.9 - > 7.8 Corrected Calcium 9.2 Uric acid 14.9 -> 11.6 Abdominal ultrasound showing hepatic cirrhosis with heterogeneous mass seen throughout the liver, neoplasm can not be excluded. CT chest/abdomen/pelvis showing many soft tissue mass throughout chest/abdomen/pelvis along with diffuse lymphadenopathy. Plan: Hemodialysis tomorrow Recommend heme oncology consultation Underwent hemodialysis overnight, potassium decreased to 5.4 Started rasburicase IV given the concern for tumor lysis syndrome Lokelma TID Patient received Ca gluconate IV along with multiple doses of sodium bicarbonate IV pushes. For kaliuresis, we started Bumex drip along with D5W at 75 cc, each L containing 150 cc of sodium bicarb Three doses of albumin 25% Q 8 hourly 06/27 Prelim blood culture showing Gram-positive cocci in clusters Continue IV antibiotics vanc and meropenem Status post 2 packed RBCs transfusion, 1 FFP Strict I&Os, urine studies pending Drips, dopamine, Levophed, vasopressin, Bumex, Protonix Poor prognosis Case discussed with patient's daughter and son at bedside in which all questions have been answered Plan discussed with Dr. Merritt Plan discussed with: Patient, Daughter (at bedside) My Orders My Orders Orders - ARJUN PETERSON Procedure Category Date Status Time Urine LAB 06/27/24 Logged Protein/Creatinine Urine Sodium LAB 06/27/24 Logged 12:41 D5w 5% (Dextrose 5%) PHA 06/27/24 In Process W/Sodium Bicarb 50m 13:00 CC Plasma Assessment Blood Product Administration S: 0400 ARJUN PETERSON June 28, 2024 10:50 PAUL MERRITT MD June 28, 2024 17:35
[2024-06-28] MEDS: BUMETANIDE INJECTION 12.5 MG in GIVE UN-DILUTED 0 ML IV SCH (11:49)
[2024-06-28 11:51] LABS: Hepatitis A Total Antibody Positive (Negative); Hepatitis B Surface Antibody Negative (Negative); Hepatitis B Surface Antigen Negative (Negative); Hepatitis C Antibody Negative (Negative)
[2024-06-28] MEDS: fentaNYL Drip 2500mCg/250mlNS 250 ML IV SCH (15:43)
[2024-06-28] MEDS: CALCIUM ACETATE 667 MG CAP NG SCH (15:44)
[2024-06-28] MEDS: VANCOMYCIN 750MG KIT 100 ML IV ONE (15:58)
--- NOTE | 2024-06-28 17:58 | DVHPN2 ---
Subjective Still septic On vasopressors Intubated and sedated Changes from previous H/P or p: Changes Objective Vitals Vital Signs Date Time Temp Pulse Resp B/P (MAP) Pulse Ox O2 Delivery O2 Flow Rate FiO2 06/28/24 17:00 98.1 96 18 112/67 (82) 95 98.1 06/28/24 15:26 30 06/28/24 06:46 Mechanical Ventilator+ 06/26/24 22:00 15 Intake/Output Intake and Output 06/28/24 07:00 Intake Total 4459.300 ml Output Total 200 ml Balance 4259.300 ml IV Total 4003.300 ml Blood Product 228 ml Other 228 ml Output Urine Total 200 ml # Bowel Movements 1 General Appearance: Other (Intubated and sedated) Lungs: Other (Bilateral diffused crackles and rhonchi) Cardiovascular: Regular rate, Normal S1, Normal S2 Abdomen: Other (Distended) Extremities: Other (1+ edema bilaterally in the legs) Medications Current Medications Medications Dose Ordered Sig/Tavares Route Start Time Stop Time Status Last Admin Dose Admin Norepinephrine Bitartrate 250 ml @ 3.75 mls/hr Q24H IV 06/26/24 21:45 06/28/24 11:11 22.5 MLS/HR Midazolam HCl 50 ml @ 1 mls/hr Q24H IV 06/26/24 22:15 06/28/24 11:12 7 MLS/HR Vasopressin 20 units/Sodium Chloride 100 ml @ 9 mls/hr Q11H7M IV 06/27/24 01:00 06/28/24 11:47 12 MLS/HR Vancomycin HCl 0 ml @ 0 mls/hr UD IV 06/27/24 03:30 Diagnostic Test (Pha) 1 strip IQ4HR 06/27/24 04:00 06/28/24 16:25 1 STRIP Insulin Human Regular IQ4HR SC 06/27/24 04:00 Dextrose 50 ml UD PRN IV 06/27/24 03:30 Ondansetron HCl 4 mg Q4HP PRN IV 06/27/24 03:30 Acetaminophen 650 mg Q6HP PRN PO 06/27/24 03:30 Nitroglycerin 0.4 mg Q5MINP PRN SL 06/27/24 03:30 Morphine Sulfate 2 mg Q30M PRN IV 06/27/24 03:30 Pantoprazole Sodium 50 ml @ 10 mls/hr Q5H IV 06/27/24 03:30 06/28/24 11:12 10 MLS/HR Sodium Bicarbonate 150 ml/Dextrose 1,150 ml @ 75 mls/hr [id number] IV 06/27/24 13:00 06/28/24 05:14 75 MLS/HR Meropenem 50 ml @ 17 mls/hr Q12HR IV 06/27/24 22:00 06/28/24 11:09 17 MLS/HR Patient Own Medication 16 mg DAILY IV 06/28/24 10:00 06/30/24 10:01 UNV Dopamine HCl/ Dextrose 250 ml @ 6.075 mls/ hr Q24H IV 06/27/24 19:30 06/27/24 21:46 6.075 MLS/HR Zirconium Oxide 10 gm Q8HR GT 06/27/24 19:30 06/29/24 14:01 06/28/24 15:43 10 GM Bumetanide 12.5 mg/Miscellaneous 50 ml @ 4 mls/hr [id number] IV 06/28/24 10:45 06/28/24 11:49 4 MLS/HR Calcium Acetate 2,001 mg TIDWM NG 06/28/24 14:00 06/28/24 15:44 2,001 MG Fentanyl Citrate 250 ml @ 2.5 mls/hr Q24H IV 06/28/24 10:15 06/28/24 15:43 2.5 MLS/HR Laboratory Results Laboratory Tests 06/28/24 04:35 Chemistry Test 06/27/24 22:09 06/28/24 04:35 Albumin 1.9 g/dL (3.2-4.8) L 2.1 g/dL (3.2-4.8) L Calcium Level 6.9 mg/dL (8.7-10.4) L 7.0 mg/dL (8.7-10.4) L Total Protein 5.0 g/dL (5.7-8.2) L 4.8 g/dL (5.7-8.2) L Magnesium Level 2.0 mg/dL (1.6-2.6) Phosphorus Level 7.8 mg/dL (2.4-5.1) H Coagulation Test 06/28/24 08:40 Prothrombin Time 40.1 sec (9.3-11.8) H Prothrombin Time INR 4.38 (0.9-1.15) *H LFT Test 06/27/24 22:09 06/28/24 04:35 Alanine Aminotransferase (ALT) 100 U/L (7-40) H 104 U/L (7-40) H Alkaline Phosphatase 341 U/L (46-116) H 333 U/L (46-116) H Aspartate Amino Transferase (AST) 673 U/L (13-40) H 717 U/L (13-40) H Total Bilirubin 5.4 mg/dL (0.2-1.0) H 6.0 mg/dL (0.2-1.0) H Urinalysis Test 06/27/24 00:20 Urine Color Dark-orange (Yellow) Urine Clarity Ex.turbid (Clear) Urine pH 5.0 (5.0-9.0) Urine Specific [place] 1.021 (1.001-1.035) Urine Protein 1+ (Negative) H Urine Ketones Negative (Negative) Urine Blood 1+ /uL (Negative) H Urine Nitrite Negative (Negative) Urine Bilirubin 1+ (Negative) H Urine Urobilinogen 2 mg/dL (Negative) H Urine Leukocyte Esterase Negative /uL (Negative) Urine RBC 21 /hpf (0 - 4) Urine Microscopic WBC 50 /HPF (0-5) H Urine Squamous Epithelial Cells None seen /hpf (<5) Urine Bacteria None seen /hpf (None Seen) Urine Hyaline Casts Many /lpf (0 - 2) Urine Mucus Few (None Seen) Urine Creatinine Pending Urine Protein/Creatinine Ratio Pending Urine Sodium Pending Urine Glucose Normal mg/dL (Normal) Urine Total Protein Pending Blood Gas Results Test 06/28/24 05:50 Arterial Blood pH 7.335 (7.350-7.450) FiO2 % 30.0 Microbiology Microbiology Date/Time Source Procedure Growth Status 06/27/24 00:05 Sputum Endotracheal Wash Gram Stain - Final Resulted 06/27/24 00:05 Sputum Endotracheal Wash Respiratory Culture - Preliminary Resulted 06/26/24 21:30 Blood Blood Culture - Preliminary Resulted Assessment/Plan Assessment/Plan Acute severe sepsis with septic shock Acute hypoxic respiratory failure Acute severe metabolic acidosis Acute kidney injury Hypokalemia Anemia Lactic acidosis Hypocalcemia Bilateral lung masses 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 History of colon cancer and surgery 4 years ago, patient was supposed to follow up after surgery for chemo and radiation but she did not History of hypertension History of type 2 diabetes Severe coagulopathy Disseminated intravascular coagulation Plan Mechanical intubation Broad-spectrum antibiotics empirically meropenem and vancomycin Nephrology consult Pulmonary consult Give fresh frozen plasma Vasopressors as needed Protonix IV Bumex drip per Nephrology 06/28/24: IV fluids Vasopressors Sedation as needed IV antibiotics Fresh plasma Echo Cardiology consult Hem-Onc consult Protonix drip Plan discussed with: Other My Orders Orders - SCOOBY MCADAMS MD Procedure Category Date Status Time * Cardiology Consult CONS 06/28/24 Transmitted 11:26 Fentanyl Drip PHA 06/28/24 In Process 2500mcg/250mlns 10:15 Communication Order ORDERS 06/28/24 Transmitted 10:15 Date of Service: June 28, 2024 Billing Provider: SCOOBY MCADAMS MD Common Visit Codes: NOT BILLABLE SCOOBY MCADAMS MD June 28, 2024 17:58
--- NOTE | 2024-06-28 21:10 | DVHPN2 ---
Progress Note - Dictate Date Seen: June 28, 2024 Medical Necessity Reason Pt with a Central, PICC or Fol: Yes The following are medically ne: Hendrix Catheter Reason for hendrix catheter: Strict I&O Subjective Patient seen and examined at bedside. Sedated, intubated on mechanical ventilator. Overnight events reviewed. vital signs Vital Sign Date Time Temp Pulse Resp B/P (MAP) Pulse Ox O2 Delivery O2 Flow Rate FiO2 06/28/24 20:28 95 18 106/66 (79) 97 30 06/28/24 18:45 96.3 205.3 06/28/24 18:04 Mechanical Ventilator+ 06/26/24 22:00 15 Total Intake and Output 06/27/24 06/27/24 06/28/24 15:00 23:00 07:00 Intake Total 986.25 ml 1475.5 ml 1997.550 ml Output Total 100 ml 100 ml Balance 986.25 ml 1375.5 ml 1897.550 ml medications Current Medications Medications Dose Ordered Sig/Tavares Route Start Time Stop Time Status Last Admin Dose Admin Norepinephrine Bitartrate 250 ml @ 3.75 mls/hr Q24H IV 06/26/24 21:45 06/28/24 11:11 Midazolam HCl 50 ml @ 1 mls/hr Q24H IV 06/26/24 22:15 06/28/24 11:12 Vasopressin 20 units/Sodium Chloride 100 ml @ 9 mls/hr Q11H7M IV 06/27/24 01:00 06/28/24 20:21 Vancomycin HCl 0 ml @ 0 mls/hr UD IV 06/27/24 03:30 Diagnostic Test (Pha) 1 strip IQ4HR 06/27/24 04:00 06/28/24 21:04 Insulin Human Regular IQ4HR SC 06/27/24 04:00 Dextrose 50 ml UD PRN IV 06/27/24 03:30 Ondansetron HCl 4 mg Q4HP PRN IV 06/27/24 03:30 Acetaminophen 650 mg Q6HP PRN PO 06/27/24 03:30 Nitroglycerin 0.4 mg Q5MINP PRN SL 06/27/24 03:30 Morphine Sulfate 2 mg Q30M PRN IV 06/27/24 03:30 Pantoprazole Sodium 50 ml @ 10 mls/hr Q5H IV 06/27/24 03:30 5/9/25 19:27 Sodium Bicarbonate 150 ml/Dextrose 1,150 ml @ 75 mls/hr [id number] IV 06/27/24 13:00 06/28/24 05:14 Meropenem 50 ml @ 17 mls/hr Q12HR IV 06/27/24 22:00 06/28/24 11:09 Patient Own Medication 16 mg DAILY IV 06/28/24 10:00 06/30/24 10:01 UNV Dopamine HCl/ Dextrose 250 ml @ 6.075 mls/ hr Q24H IV 06/27/24 19:30 06/27/24 21:46 Zirconium Oxide 10 gm Q8HR GT 06/27/24 19:30 06/29/24 14:01 06/28/24 15:43 Bumetanide 12.5 mg/Miscellaneous 50 ml @ 4 mls/hr [id number] IV 06/28/24 10:45 06/28/24 11:49 Calcium Acetate 2,001 mg TIDWM NG 06/28/24 14:00 06/28/24 18:43 Fentanyl Citrate 250 ml @ 2.5 mls/hr Q24H IV 06/28/24 10:15 06/28/24 15:43 objective Gen.: Patient lying in bed in medical ICU. Sedated, intubated on mechanical ventilator. Head: Normocephalic, atraumatic. Eyes: PERRLA. Ears: Normal external anatomy. Throat: Endotracheal tube and orogastric tube in place. Neck: Supple, trachea midline. Chest: Transmitted breath sounds bilaterally. Decreased air entry bilaterally. No wheezing. Bibasilar crackles. Cardiovascular: Positive S1, positive S2. Regular rate and rhythm. Abdomen: Positive bowel sounds in all 4 quadrants. Soft, nontender, nondistended. : Hendrix in place. Normal external genitalia. Rectal: Deferred. Skin: Warm, dry. Intact. Extremities: 2+ radial pulses bilaterally. No lower extremity edema. Neuro: Sedated. laboratory and microbiology Laboratory Tests 06/28/24 04:35 Test 06/28/24 04:35 Range/Units Serum Glucose 75 74-106 mg/dL Assessment/Plan Impression: Acute hypoxic respiratory failure On mechanical ventilator Septic shock Multiorgan failure Community-acquired pneumonia Acute renal failure ? GI hemorrhage Metastatic cancer Coagulopathy Events: Remains on vent support On AC mode; RR 18, VT 500, PEEP 5, FiO2 30% Titrate FIO2 to keep O2 saturation above 90%. CXR demonstrates findings c/w reactive airways disease or mild CHF. Bilateral lung masses seen. Abdominal ultrasound showing hepatic cirrhosis with heterogeneous mass seen throughout the liver, neoplasm cannot be excluded. CT chest/abdomen/pelvis showing many soft tissue mass throughout chest/abdomen/pelvis along with diffuse lymphadenopathy. On multiple pressors for hemodynamic support Levophed 12 mcg/min, dopamine 2 mcg/min and vasopressin 0.04 units/min Titrate to keep mean arterial pressure greater than 65 mmHg. Sedated on Versed, Fentanyl Continue antibiotics. Monitor hemoglobin Continue diuresis w/ Bumex drip Monitor renal function Monitor electrolytes. Supplement as necessary. Monitor ins and outs. Nephrology recs appreciated. ABG reviewed, notable for acidemia Labs and imaging reviewed. Rest of plan as noted below. Plan: s/p intubation on mechanical ventilator. On AC mode; RR 18, VT 500, PEEP 5, FiO2 30% Titrate FIO2 to keep O2 saturation above 90%. VAP bundle. Daily ABG and CXR while intubated Sedate for ventilator synchrony Continue antibiotics. F/u cultures. Monitor hemoglobin Transfuse if less than 7.0 g/dL. On multiple pressors for hemodynamic support Titrate to keep mean arterial pressure greater than 65 mmHg. IV fluids with sodium bicarb drip with 3 amps bicarb - at 75 ml/hr. Diurese w/ Bumex drip Monitor renal function Monitor electrolytes. Supplement as necessary. Monitor ins and outs. Maintain euvolemia. GI prophylaxis. DVT prophylaxis. Prognosis: Poor given patient's multiple co-morbidities. Condition: Critical Rest of plan per hospitalist and other consultants. A total of 35 minutes of critical care time was spent reviewing the patient record, examining the patient, making a diagnostic and therapeutic plan, discussing this plan with the medical personnel, following up on diagnostic studies and following the patient for clinical stability excluding any and all procedures. At least 50% of this time was spent in direct, [id number] contact. Thank you, Dr. Heredia, for allowing me to participate in this patient's care. Further recommendations will depend on the patient's clinical course. Please do not hesitate to contact me if you have any questions or concerns. This medical document was created using an electronic medical record system with [employer] dictation system. Although these documentations are being carefully reviewed, there may still be some phonetic and typographical changes. The errors are purely typographical, due to imperfection on the software program, and do not reflect any compromise in the patient's medical care. Plan discussed with: Other (RN) Critical Care Time(min): 35 CC Plasma Assessment Blood Product Administration S: 0400 MIKAL CALVERT MD June 28, 2024 21:10
--- NOTE | 2024-06-28 21:10 | DVHINCON2 ---
Date of service: June 27, 2024 Referring Physician Teresa Heredia MD Reason for Consultation Acute hypoxic respiratory failure requiring mechanical ventilator History of Present Illness A 74-year-old woman with past medical history of hypertension, diabetes mellitus, and colon cancer who presents to ED today for evaluation of shortness of breath. Per ED records and personnel, patient had been decompensating over the past two weeks, having decreased oral intake and weight loss. Over the past 3 days, she has been complaining of shortness of breath. Patient suffered a fall 1-2 weeks ago and has been bedbound since. Patient required intubation and placement on mechanical ventilator due to worsened respiratory status and was admitted for further care. Pulmonary consultation is requested for evaluation and management due to the above findings. Review of Systems: 14-point review of systems negative unless otherwise noted above. Past Medical History: Hypertension, diabetes mellitus, colon cancer, hemorrhoids Past Surgical History: Colon mass resection 4 years ago which was cancerous - no subsequent radiation or chemo. Medications: Reviewed. Allergies: No known drug allergies. Family History: Diabetes mellitus Heart failure Hypertension. Social History: Nonsmoker. No alcohol or illicit drug use. Family History: FH: diabetes mellitus FH: heart failure FH: hypertension Allergies: Coded Allergies: NO KNOWN ALLERGIES (Unverified , 06/26/24) Current Medications Current Medications Medications (Trade) Dose Ordered Sig/Tavares Route PRN Reason Start Time Stop Time Status Last Admin Meropenem 50 ml @ 17 mls/hr Q12HR IV 06/27/24 22:00 06/28/24 11:09 Patient Own Medication 16 mg DAILY IV 06/28/24 10:00 06/30/24 10:01 UNV Bumetanide 12.5 mg/Miscellaneous 50 ml @ 4 mls/hr [id number] IV 06/28/24 10:45 06/28/24 11:49 Calcium Acetate (Phoslo Capsule) 2,001 mg TIDWM NG 06/28/24 14:00 06/28/24 18:43 Fentanyl Citrate 250 ml @ 2.5 mls/hr Q24H IV 06/28/24 10:15 06/28/24 15:43 Vital Signs Vital Signs Date Time Temp Pulse Resp B/P (MAP) Pulse Ox O2 Delivery O2 Flow Rate FiO2 06/28/24 20:28 95 18 106/66 (79) 97 30 06/28/24 18:45 96.3 205.3 06/28/24 18:04 Mechanical Ventilator+ 06/26/24 22:00 15 Physical Exam Gen.: Patient lying in bed in medical ICU. Sedated, intubated on mechanical ventilator. Head: Normocephalic, atraumatic. Eyes: PERRLA. Ears: Normal external anatomy. Throat: Endotracheal tube and orogastric tube in place. Neck: Supple, trachea midline. Chest: Transmitted breath sounds bilaterally. Decreased air entry bilaterally. No wheezing. Bibasilar crackles. Cardiovascular: Positive S1, positive S2. Regular rate and rhythm. Abdomen: Positive bowel sounds in all 4 quadrants. Soft, nontender, nondistended. : Katz in place. Normal external genitalia. Rectal: Deferred. Skin: Warm, dry. Intact. Extremities: 2+ radial pulses bilaterally. No lower extremity edema. Neuro: Sedated. Labs/Diagnostic Data Labs Test 06/28/24 20:29 06/28/24 08:40 06/28/24 05:50 06/28/24 04:35 Range/Units POC Glucose 77 70-106 mg/dl Prothrombin Time 40.1 H 9.3-11.8 sec Prothrombin Time INR 4.38 *H 0.9-1.15 Blood Gas Specimen Type Arterial Blood Gas Sample Site Right radial Blood Gas Patient Temperature 37.0 Arterial Blood Date Drawn [id number] Arterial Blood pH 7.335 L 7.350-7.450 Arterial Blood Partial Pressure CO2 28.4 L 32.0-45.0 mmHg Arterial Blood Partial Pressure O2 83.2 83.0-108.0 mmHg Arterial Blood HCO3 14.8 L 21.0-28.0 mmol/L Arterial Blood Oxygen Saturation 94.7 94.0-98.0 % Arterial Blood Base Excess -9.9 L -2.0-3.0 mmol/L Arterial Blood Oxyhemoglobin 93.4 L 94.0-98.0 % Arterial Blood Carboxyhemoglobin 0.6 0.5-1.5 % Arterial Blood Methemoglobin 0.8 0.0-1.5 % Michael Test Modified Blood Gas Total Hemoglobin 8.60 L 12.0-16.0 g/dL Blood Gas Set Respiration Rate 18.0 Blood Gas Modality Vent - ac FiO2 % 30.0 Blood Gas Tidal Volume 500.0 Blood Gas PEEP or CPAP 5.0 White Blood Count 24.1 H 4.4-10.8 10^3/uL Red Blood Count 2.75 L 4.0-5.20 10^6/uL Hemoglobin 8.0 L 12.2-16.2 g/dL Hematocrit 25.1 L 36.0-46.0 % Mean Corpuscular Volume 91.1 80.0-100.0 fL Mean Corpuscular Hemoglobin 29.2 28.0-32.0 pg Mean Corpuscular Hemoglobin Concent 32.0 32.0-36.0 g/dL Red Cell Distribution Width 19.7 H 11.8-14.3 % Platelet Count 160 140-450 10^3/uL Mean Platelet Volume 7.7 6.9-10.8 fL Neutrophils (%) (Auto) 37.0-80.0 % Lymphocytes (%) (Auto) 10.0-50.0 % Monocytes (%) (Auto) 0.0-12.0 % Basophils (%) (Auto) 0.0-2.0 % Neutrophils # (Auto) 1.6-8.6 10 ^3/uL Lymphocytes # (Auto) 0.4-5.4 10 ^3/uL Monocytes # (Auto) 0-1.3 10 ^3/uL Differential Total Cells Counted 100.0 100 Neutrophils % (Manual) 84 H 37.0-80.0 Band Neutrophils % (Manual) 2 Lymphocytes % (Manual) 6 L 10.0-50.0 Monocytes % (Manual) 6 0-12 Eosinophils % (Manual) 0 0-7 Basophils % (Manual) 0 0.0-2.0 Metamyelocytes % (manual) 0 Myelocytes % (Manual) 2 Promyelocytes % (Manual) 0 Blast Cells % (Manual) 0 Nucleated Red Blood Cells 7.0 % Reactive Lymphocytes 0 Platelet Estimate Adequate Large Platelets Few Sodium Level 140 136-145 mmol/L Potassium Level 5.4 H 3.5-5.1 mmol/L Chloride Level 103 98-107 mmol/L Carbon Dioxide Level 17 L 20-31 mmol/L Anion Gap 20 H 5-15 Blood Urea Nitrogen 38 H 9-23 mg/dL Creatinine 2.75 H 0.550-1.02 mg/dL Glomerular Filtration Rate Calc 18 >90 mL/min BUN/Creatinine Ratio 13.8 10.0-20.0 Serum Glucose 75 74-106 mg/dL Uric Acid 11.6 H 3.1-7.8 mg/dL Calcium Level 7.0 L 8.7-10.4 mg/dL Phosphorus Level 7.8 H 2.4-5.1 mg/dL Magnesium Level 2.0 1.6-2.6 mg/dL Total Bilirubin 6.0 H 0.2-1.0 mg/dL Aspartate Amino Transferase (AST) 717 H 13-40 U/L Alanine Aminotransferase (ALT) 104 H 7-40 U/L Alkaline Phosphatase 333 H 46-116 U/L Lactate Dehydrogenase 2018 H 120-246 U/L Total Protein 4.8 L 5.7-8.2 g/dL Albumin 2.1 L 3.2-4.8 g/dL Random Vancomycin Level 15.2 H 5-10 ug/mL Test 06/27/24 17:20 06/27/24 15:08 06/27/24 11:25 06/27/24 11:03 Range/Units Blood Gas Critical Value Read Back Yes Blood Gas Notified Whom Dr. sebastian Blood Gas Notified Time [id number] Blood Gas Notified By Plastic Press Operator zaheer [email or web address] Tumor Marker Alpha Fetoprotein 2.8 0.0-9.2 ng/mL Carcinoembryonic Antigen 500.00 <=5.0 ng/mL Influenza Type A Antigen Negative Negative Influenza Type B Antigen Negative Negative SARS-CoV-2 Antigen (Rapid) Negative NEGATIVE Activated Partial Thromboplast Time 57.2 H 24.5-34.5 SEC Hepatitis A Antibody Total Positive H Negative Hepatitis B Surface Antigen Negative Negative Hepatitis B Surface Antibody Negative Negative Hepatitis B Core Total Antibody Negative Negative Hepatitis C Antibody Negative Negative Test 06/27/24 06:40 06/27/24 05:05 06/27/24 00:34 06/27/24 00:20 Range/Units Lactic Acid Level 9.6 *H 0.4-2.0 mmol/L Anisocytosis (manual) Slight Target Cells Few Ammonia 159 *H 11-32 umol/L Blood Gas Spontaneous Rate 18 Urine Color Dark-orange Yellow Urine Clarity Ex.turbid Clear Urine pH 5.0 5.0-9.0 Urine Specific [place] 1.021 1.001-1.035 Urine Protein 1+ H Negative Urine Ketones Negative Negative Urine Blood 1+ H Negative /uL Urine Nitrite Negative Negative Urine Bilirubin 1+ H Negative Urine Urobilinogen 2 H Negative mg/dL Urine Leukocyte Esterase Negative Negative /uL Urine RBC 21 0 - 4 /hpf Urine Microscopic WBC 50 H 0-5 /HPF Urine Squamous Epithelial Cells None seen <5 /hpf Urine Bacteria None seen None Seen /hpf Urine Hyaline Casts Many 0 - 2 /lpf Urine Mucus Few None Seen Urine Glucose Normal Normal mg/dL Urine Opiates Screen Neg NEGATIVE Urine Fentanyl Screen Neg NEGATIVE Urine Barbiturates Screen Neg NEGATIVE Urine Phencyclidine Screen Neg NEGATIVE Urine Amphetamines Screen Neg NEGATIVE Urine Benzodiazepines Screen Neg NEGATIVE Urine Cocaine Screen Neg NEGATIVE Urine Cannabinoids Screen Neg NEGATIVE Test 06/27/24 00:16 06/26/24 21:34 06/26/24 21:30 Range/Units D-Dimer, Quantitative 17.01 H 0.0-0.49 mg/L FEU Troponin I High Sensitivity 13 </=34 ng/L Blood Gas Liter Flow 15.00 Tear Drop Cells Few [place] Cells Few B-Type Natriuretic Peptide 134.34 0-100 pg/mL Lipase 25 12-53 U/L Thyroid Stimulating Hormone (TSH) 2.44 0.55-4.78 uIU/mL Plasma/Serum Blood Alcohol 4.9 <10 mg/dL Microbiology Date/Time Source Procedure Growth Status 06/27/24 00:05 Sputum Endotracheal Wash Gram Stain - Final Resulted 06/27/24 00:05 Sputum Endotracheal Wash Respiratory Culture - Preliminary Resulted 06/26/24 21:30 Blood Blood Culture - Preliminary Resulted Assessment Impression: Acute hypoxic respiratory failure On mechanical ventilator Septic shock Multiorgan failure Community-acquired pneumonia Acute renal failure ? GI hemorrhage Metastatic cancer Coagulopathy Plan: s/p intubation on mechanical ventilator. CXR image and report reviewed. Devices in place. Pulmonary vascular congestion. No pneumothorax. No pleural effusion. ABG reviewed, notable for acidemia. On AC mode; RR 18, VT 500, PEEP 5, FiO2 30% Titrate FIO2 to keep O2 saturation above 90%. VAP bundle. Daily ABG and CXR while intubated Sedate for ventilator synchrony - on Versed Obtain STAT ABG. Continue antibiotics. F/u cultures. Monitor hemoglobin Transfuse if less than 7.0 g/dL. On multiple pressors for hemodynamic support Levophed 20 mcg/min and vasopressin 0.03 units/min Titrate to keep mean arterial pressure greater than 65 mmHg. IV fluids with sodium bicarb drip with 3 amps bicarb - at 75 ml/hr. Diurese w/ Bumex drip Monitor renal function Monitor electrolytes. Supplement as necessary. Monitor ins and outs. Maintain euvolemia. GI prophylaxis. DVT prophylaxis. Prognosis: Poor given patient's multiple co-morbidities. Condition: Critical Rest of plan per hospitalist and other consultants. A total of 35 minutes of critical care time was spent reviewing the patient record, examining the patient, making a diagnostic and therapeutic plan, discus sing this plan with the medical personnel, following up on diagnostic studies and following the patient for clinical stability excluding any and all procedures. At least 50% of this time was spent in direct, [id number] contact. Thank you, Dr. Heredia, for allowing me to participate in this patient's care. Further recommendations will depend on the patient's clinical course. Please do not hesitate to contact me if you have any questions or concerns. This medical document was created using an electronic medical record system with [employer] computerized dictation system. Although these documentations are being carefully reviewed, there may still be some phonetic and typographical changes. The errors are purely typographical, due to imperfection on the software program, and do not reflect any compromise in the patient's medical care. Plan discussed with: Other (KODY Wilkerson/Dr. Heredia) MIKAL SEBASTIAN MD June 28, 2024 21:10
--- NOTE | 2024-06-28 22:30 | DVHPN2 ---
Progress Note - Dictate Date Seen: June 28, 2024 Medical Necessity Reason Pt with a Central, PICC or Fol: Yes vital signs Vital Sign Date Time Temp Pulse Resp B/P (MAP) Pulse Ox O2 Delivery O2 Flow Rate FiO2 06/28/24 22:03 104/62 06/28/24 21:45 96.3 96 18 100 205.3 06/28/24 20:28 30 06/28/24 20:00 Mechanical Ventilator+ 06/26/24 22:00 15 Total Intake and Output 06/27/24 06/27/24 06/28/24 15:00 23:00 07:00 Intake Total 986.25 ml 1475.5 ml 2189.125 ml Output Total 100 ml 100 ml Balance 986.25 ml 1375.5 ml 2089.125 ml medications Current Medications Medications Dose Ordered Sig/Tavares Route Start Time Stop Time Status Last Admin Dose Admin Norepinephrine Bitartrate 250 ml @ 3.75 mls/hr Q24H IV 06/26/24 21:45 06/28/24 22:03 22.5 MLS/HR Midazolam HCl 50 ml @ 1 mls/hr Q24H IV 06/26/24 22:15 06/28/24 11:12 7 MLS/HR Vasopressin 20 units/Sodium Chloride 100 ml @ 9 mls/hr Q11H7M IV 06/27/24 01:00 06/28/24 20:21 12 MLS/HR Vancomycin HCl 0 ml @ 0 mls/hr UD IV 06/27/24 03:30 Diagnostic Test (Pha) 1 strip IQ4HR 06/27/24 04:00 06/28/24 21:04 1 STRIP Insulin Human Regular IQ4HR SC 06/27/24 04:00 Dextrose 50 ml UD PRN IV 06/27/24 03:30 Ondansetron HCl 4 mg Q4HP PRN IV 06/27/24 03:30 Acetaminophen 650 mg Q6HP PRN PO 06/27/24 03:30 Nitroglycerin 0.4 mg Q5MINP PRN SL 06/27/24 03:30 Morphine Sulfate 2 mg Q30M PRN IV 06/27/24 03:30 Pantoprazole Sodium 50 ml @ 10 mls/hr Q5H IV 06/27/24 03:30 06/28/24 19:27 10 MLS/HR Sodium Bicarbonate 150 ml/Dextrose 1,150 ml @ 75 mls/hr Q67Q08H IV 06/27/24 13:00 06/28/24 05:14 75 MLS/HR Meropenem 50 ml @ 17 mls/hr Q12HR IV 06/27/24 22:00 06/28/24 11:09 17 MLS/HR Patient Own Medication 16 mg DAILY IV 06/28/24 10:00 06/30/24 10:01 UNV Dopamine HCl/ Dextrose 250 ml @ 6.075 mls/ hr Q24H IV 06/27/24 19:30 06/27/24 21:46 6.075 MLS/HR Zirconium Oxide 10 gm Q8HR GT 06/27/24 19:30 06/29/24 14:01 06/28/24 15:43 10 GM Bumetanide 12.5 mg/Miscellaneous 50 ml @ 4 mls/hr [id number] IV 06/28/24 10:45 06/28/24 11:49 4 MLS/HR Calcium Acetate 2,001 mg TIDWM NG 06/28/24 14:00 06/28/24 18:43 2,001 MG Fentanyl Citrate 250 ml @ 2.5 mls/hr Q24H IV 06/28/24 10:15 06/28/24 15:43 2.5 MLS/HR laboratory and microbiology Laboratory Tests 06/28/24 04:35 Test 06/28/24 04:35 Range/Units Serum Glucose 75 74-106 mg/dL Problems(with codes): (1) Metastatic disease (2) Severe anemia (3) Metabolic acidosis (4) Sepsis (5) Acute renal failure (6) Liver mass (7) Elevated liver enzymes (8) Leukocytosis Prognosis A/P [facility] refused transfer Consider lymphoproliferative disorder like lymphoma vs HCC Recommend IR guided biopsy of accessible mass Prognosis poor IV Abx Pt is likely a hospice candidate Plan discussed with: Other (Dr Whaley) CC Plasma Assessment Blood Product Administration S: [id number] KADEEM SERRANO MD June 28, 2024 22:29
[2024-06-28] MEDS: SODIUM BICARB 50mEq/50ml Vial 150 ML in D5W 5% 1,000 ML IV SCH (23:13)
[2024-06-29] VITALS (108 sets, daily range): BP systolic 69–122; BP diastolic 42–66; PULSE 92–115; RESP 12–28; TEMP 96.6–99.7; O2SAT 34–100
[2024-06-29 04:05] LABS: Basophils # (auto) 0.2 10 ^3/uL (0-0.2); Lymphocytes # (auto) 3.2 10 ^3/uL (0.4-5.4); White Blood Cell 16.8 10^3/uL (4.4-10.8)
[2024-06-29 04:08] LABS: INR 1.15 (0.9-1.15); Partial Thromboplastin Time 24.9 SEC (24.5-34.5)
[2024-06-29 04:09] LABS: Basophils % (auto) 1.2 % (0.0-2.0); Eosinophils # (auto) 0.9 10 ^3/uL (0-0.8); Eosinophils % (auto) 5.5 % (0.0-7.0); Hematocrit 31.4 % (36.0-46.0); Hemoglobin 10.7 g/dL (12.2-16.2); Lymphocytes % (auto) 19.2 % (10.0-50.0); Mean Corpuscular Hemoglobin 29.8 pg (28.0-32.0); Mean Corpuscular Hgb Conc. 34.1 g/dL (32.0-36.0); Mean Corpuscular Volume 87.3 fL (80.0-100.0); Monocytes # (auto) 1.3 10 ^3/uL (0-1.3); Monocytes % (auto) 7.6 % (0.0-12.0); Neutrophils # (auto) 11.2 10 ^3/uL (1.6-8.6); Neutrophils % (auto) 66.5 % (37.0-80.0); Nucleated Red Blood Cells % 0.1 %; Platelet Count (auto) 660 10^3/uL (140-450); Red Cell Distribution Width 15.5 % (11.8-14.3)
[2024-06-29 04:18] LABS: Alanine Aminotransferase 18 U/L (7-40); Albumin 3.4 g/dL (3.2-4.8); Anion Gap 13 (5-15); Aspartate Aminotransferase 30 U/L (13-40); BUN/Creatinine Ratio 30.4 (10.0-20.0); Calcium 9.2 mg/dL (8.7-10.4); Carbon Dioxide 26 mmol/L (20-31); Chloride 105 mmol/L (98-107); Magnesium 1.9 mg/dL (1.6-2.6); Potassium 3.7 mmol/L (3.5-5.1); Sodium 144 mmol/L (136-145); Total Protein 7.5 g/dL (5.7-8.2)
[2024-06-29 04:19] LABS: Bilirubin, Total 0.3 mg/dL (0.2-1.0)
[2024-06-29 04:28] LABS: Alkaline Phosphatase 251 U/L (46-116); Blood Urea Nitrogen 65 mg/dL (9-23); Glucose 224 mg/dL (74-106)
--- NOTE | 2024-06-29 05:42 | DVH ---
CHEST RADIOGRAPH Indication: RESPIRATORY FAILURE Technique: Single frontal view of the chest was obtained COMPARISON: XY CHEST XRAY 1 VIEW on DOS: 06/28/24, XY CHEST XRAY 1 VIEW on DOS: 06/27/24, XY CHEST XRAY 1 VIEW on DOS: 06/27/24, XY CHEST PORTABLE on DOS: 06/26/24, XY CHEST XRAY 1 VIEW on DOS: 06/26/24 FINDINGS: Lines and Tubes: Unchanged. Lungs: Clear with diminished lung volumes which exaggerates the pulmonary vasculature. Pleura: No effusion. No pneumothorax. Cardiomediastinal contours: Unremarkable Bones: Unremarkable IMPRESSION: 1. No acute disease. 2. Lines and tubes unchanged.
[2024-06-29] MEDS: ALBUMIN 25% 100 ML IV SCH (06:11)
[2024-06-29] MEDS: PHENYLEPHRINE IV 250 ML IV SCH (06:45)
[2024-06-29] MEDS ORDERED: SODIUM CHL 0.9% 1000 ML BAG XX ONE (07:00)
[2024-06-29] MEDS: DEXTROSE (50%) 50ML SYRG IV PRN (08:34)
[2024-06-29 11:30] LABS: Base Excess -9.2 mmol/L (-2.0-3.0)
--- NOTE | 2024-06-29 11:33 | DVHPN2 ---
Progress Note Date Seen: June 29, 2024 Medical Necessity Reason Pt with a Central, PICC or Fol: Yes The following are medically ne: Hendrix Catheter Reason for hendrix catheter: Strict I&O Subjective Review of Systems: RESPIRATORY:Abnormal Other Systems: Patient seen and examined by myself today on follow-up, patient remained intubated on ventilator Patient examined hemodialysis, blood pressure stable Objective vital signs Vital Sign Date Time Temp Pulse Resp B/P (MAP) Pulse Ox O2 Delivery O2 Flow Rate FiO2 06/29/24 11:13 98/62 06/29/24 09:21 112 18 97 30 06/29/24 08:00 Mechanical Ventilator+ 06/29/24 06:45 97.5 207.5 Total Intake and Output 06/28/24 06/28/24 06/29/24 15:00 23:00 07:00 Intake Total 1572.600 ml 1435.600 ml 1506.600 ml Output Total 150 ml 500 ml Balance 1572.600 ml 1285.600 ml 1006.600 ml medications Current Medications Medications Dose Ordered Sig/Atvares Route Start Time Stop Time Status Last Admin Dose Admin Norepinephrine Bitartrate 250 ml @ 3.75 mls/hr Q24H IV 06/26/24 21:45 06/29/24 06:48 52.5 MLS/HR Midazolam HCl 50 ml @ 1 mls/hr Q24H IV 06/26/24 22:15 06/28/24 23:58 3 MLS/HR Vasopressin 20 units/Sodium Chloride 100 ml @ 9 mls/hr Q11H7M IV 06/27/24 01:00 06/29/24 05:02 12 MLS/HR Vancomycin HCl 0 ml @ 0 mls/hr UD IV 06/27/24 03:30 Diagnostic Test (Pha) 1 strip IQ4HR 06/27/24 04:00 06/29/24 11:20 1 STRIP Insulin Human Regular IQ4HR SC 06/27/24 04:00 Dextrose 50 ml UD PRN IV 06/27/24 03:30 06/29/24 08:34 50 ML Ondansetron HCl 4 mg Q4HP PRN IV 06/27/24 03:30 Acetaminophen 650 mg Q6HP PRN PO 06/27/24 03:30 Nitroglycerin 0.4 mg Q5MINP PRN SL 06/27/24 03:30 Morphine Sulfate 2 mg Q30M PRN IV 06/27/24 03:30 Pantoprazole Sodium 50 ml @ 10 mls/hr Q5H IV 06/27/24 03:30 06/29/24 06:11 10 MLS/HR Meropenem 50 ml @ 17 mls/hr Q12HR IV 06/27/24 22:00 06/28/24 22:54 17 MLS/HR Patient Own Medication 16 mg DAILY IV 06/28/24 10:00 06/30/24 10:01 UNV Dopamine HCl/ Dextrose 250 ml @ 6.075 mls/ hr Q24H IV 06/27/24 19:30 06/27/24 21:46 6.075 MLS/HR Zirconium Oxide 10 gm Q8HR GT 06/27/24 19:30 06/29/24 14:01 06/28/24 15:43 10 GM Bumetanide 12.5 mg/Miscellaneous 50 ml @ 4 mls/hr [id number] IV 06/28/24 10:45 06/29/24 11:13 4 MLS/HR Calcium Acetate 2,001 mg TIDWM NG 06/28/24 14:00 06/29/24 11:26 2,001 MG Fentanyl Citrate 250 ml @ 2.5 mls/hr Q24H IV 06/28/24 10:15 06/28/24 15:43 2.5 MLS/HR Sodium Bicarbonate 150 ml/Dextrose 1,150 ml @ 100 mls/hr [id number] IV 06/28/24 23:00 06/28/24 23:13 100 MLS/HR Phenylephrine HCl 250 ml @ 30 mls/hr Q8H20M IV 06/29/24 06:45 06/29/24 08:35 30 MLS/HR Examination: LUNGS:Normal, CVS:Normal, MSK:Normal laboratory and microbiology Laboratory Tests 06/29/24 03:20 Test 06/29/24 03:20 Range/Units Serum Glucose 224 H 74-106 mg/dL Microbiology Date/Time Source Procedure Growth Status 06/27/24 00:05 Sputum Endotracheal Wash Gram Stain - Final Resulted 06/27/24 00:05 Sputum Endotracheal Wash Respiratory Culture - Preliminary Resulted 06/26/24 21:30 Blood Blood Culture - Preliminary Resulted Problem List/Assessment/Plan Problem List/Assessment/Plan Acute kidney injury, rule out tumor lysis syndrome and ATN Acute respiratory failure, patient intubated on ventilator Diffuse metastatic disease, primary source unknown Septic shock requiring pressor support Hypovolemic shock Acute blood loss anemia requiring transfusion Multiorgan failure Hyperkalemia, resolved Lactic acidosis Hypoglycemia Transaminitis Hypoalbuminemia Hyperammonemia Hyperuricemia Hyperphosphatemia Tumor lysis syndrome Recommendations Continue with UF 1-2 L as tolerated Albumin 25% IV with hemodialysis Patient on max IV pressor support Hendrix catheter Strict I&Os IVF D10 W at 50 cc/hour Calcium acetate 2001 mg NG tube t.i.d. IV antibiotics Poor prognosis r Plan discussed with: Daughter, Other (Nurse) My Orders My Orders Orders - PAUL MERRITT MD Procedure Category Date Status Time Hemodialysis Orders ORDERS 06/29/24 Transmitted 07:00 Dialysis Nursing SILVIA 06/29/24 In Process Message 07:00 Document Fluid Input SILVIA 06/29/24 In Process And Outpu 07:00 Epoetin Ildefonso-Epbx PHA 06/29/24 In Process (Retacrit) 21:00 Calcium Acetate PHA 06/28/24 In Process Capsule (Phoslo 14:00 D5w 5% (Dextrose 5%) PHA 06/28/24 In Process W/Sodium Bicarb 50m 23:00 Dietary Evaluation Review Recommendations by RD: Protein Supplementation Comments: 1) Initiate Pro-Stat @ 30 mL qd. Flush 30 mL free H2O AC/PC. 2) Initiate Nephro-Julieth @ 1 tb qd 3) If patient remains NPO > 7 days, consider EN/TPN to meet at least 75% estimated needs 4) If GI route is preferred, consider Nepro @ 40 mL/hr goal rate as tolerated. TF regimen (including Pro-Stat) will provide 1828 kcals, 93g Pro, and 775 free mL H2O per 24 hrs. TF rate will meet ~ 91% daily estimated energy needs and ~86% daily estimated protein needs 5) Advance to renal diet, pending [facility] approval 6) Follow-up with nephrology, oncology, cardiology, and pulmonology 7) Continue to monitor I&O, labs, and skin integrity Expected Outcomes/Goals: 1) patient to receive nutrition support within 7 days of NPO status 2) labs and wound to improve 3) diet to advance 4) follow-up in 2-3 days CC Plasma Assessment Blood Product Administration S: 0400 PAUL MERRITT MD June 29, 2024 11:33
[2024-06-29] MEDS: EPINEPHrine HCL INJECTION 16 MG in D5W 5% 234 ML IV SCH (12:15)
--- NOTE | 2024-06-29 12:33 | DVHPN2 ---
Subjective Still intubated Sedated Septic on vasopressors FiO2 30% PEEP of 5 Changes from previous H/P or p: Changes Objective Vitals Vital Signs Date Time Temp Pulse Resp B/P (MAP) Pulse Ox O2 Delivery O2 Flow Rate FiO2 06/29/24 11:41 90/57 06/29/24 11:35 111 19 100 30 06/29/24 08:00 Mechanical Ventilator+ 06/29/24 06:45 97.5 207.5 Intake/Output Intake and Output 06/29/24 07:00 Intake Total 4514.800 ml Output Total 650 ml Balance 3864.800 ml Intake Oral 30 ml IV Total 4484.800 ml Output Urine Total 650 ml # Bowel Movements 2 General Appearance: Other (Intubated and sedated) Lungs: Other (Bilateral diffused crackles and rhonchi) Cardiovascular: Regular rate, Normal S1, Normal S2 Abdomen: Other (Distended) Extremities: Other (1+ edema bilaterally in the legs) Medications Current Medications Medications Dose Ordered Sig/Tavares Route Start Time Stop Time Status Last Admin Dose Admin Norepinephrine Bitartrate 250 ml @ 3.75 mls/hr Q24H IV 06/26/24 21:45 06/29/24 11:41 56.25 MLS/HR Midazolam HCl 50 ml @ 1 mls/hr Q24H IV 06/26/24 22:15 06/28/24 23:58 3 MLS/HR Vasopressin 20 units/Sodium Chloride 100 ml @ 9 mls/hr Q11H7M IV 06/27/24 01:00 06/29/24 05:02 12 MLS/HR Vancomycin HCl 0 ml @ 0 mls/hr UD IV 06/27/24 03:30 Diagnostic Test (Pha) 1 strip IQ4HR 06/27/24 04:00 06/29/24 11:20 1 STRIP Insulin Human Regular IQ4HR SC 06/27/24 04:00 Dextrose 50 ml UD PRN IV 06/27/24 03:30 06/29/24 08:34 50 ML Ondansetron HCl 4 mg Q4HP PRN IV 06/27/24 03:30 Acetaminophen 650 mg Q6HP PRN PO 06/27/24 03:30 Nitroglycerin 0.4 mg Q5MINP PRN SL 06/27/24 03:30 Morphine Sulfate 2 mg Q30M PRN IV 06/27/24 03:30 Pantoprazole Sodium 50 ml @ 10 mls/hr Q5H IV 06/27/24 03:30 06/29/24 11:39 10 MLS/HR Meropenem 50 ml @ 17 mls/hr Q12HR IV 06/27/24 22:00 06/29/24 11:36 17 MLS/HR Patient Own Medication 16 mg DAILY IV 06/28/24 10:00 06/30/24 10:01 UNV Dopamine HCl/ Dextrose 250 ml @ 6.075 mls/ hr Q24H IV 06/27/24 19:30 06/27/24 21:46 6.075 MLS/HR Zirconium Oxide 10 gm Q8HR GT 06/27/24 19:30 06/29/24 14:01 06/28/24 15:43 10 GM Bumetanide 12.5 mg/Miscellaneous 50 ml @ 4 mls/hr [id number] IV 06/28/24 10:45 06/29/24 11:13 4 MLS/HR Calcium Acetate 2,001 mg TIDWM NG 06/28/24 14:00 06/29/24 11:26 2,001 MG Fentanyl Citrate 250 ml @ 2.5 mls/hr Q24H IV 06/28/24 10:15 06/28/24 15:43 2.5 MLS/HR Sodium Bicarbonate 150 ml/Dextrose 1,150 ml @ 100 mls/hr [id number] IV 06/28/24 23:00 06/28/24 23:13 100 MLS/HR Phenylephrine HCl 250 ml @ 30 mls/hr Q8H20M IV 06/29/24 06:45 06/29/24 08:35 30 MLS/HR Phenylephrine HCl 80 mg/Sodium Chloride 250 ml @ 7.5 mls/hr Q24H IV 06/29/24 12:15 UNV Norepinephrine Bitartrate 32 mg/ Sodium Chloride 250 ml @ 0.938 mls/ hr Q24H IV 06/29/24 12:15 UNV Epinephrine HCl 16 mg/Dextrose 250 ml @ 1.875 mls/ hr Q24H IV 06/29/24 12:15 UNV Dopamine HCl/ Dextrose 250 ml @ 0 mls/hr Q0M IV 06/29/24 12:15 UNV Laboratory Results Laboratory Tests 06/29/24 03:20 Chemistry Test 06/29/24 03:20 Albumin 3.4 g/dL (3.2-4.8) Calcium Level 9.2 mg/dL (8.7-10.4) Magnesium Level 1.9 mg/dL (1.6-2.6) Total Protein 7.5 g/dL (5.7-8.2) Coagulation Test 06/29/24 03:20 Prothrombin Time 12.0 sec (9.3-11.8) H Prothrombin Time INR 1.15 (0.9-1.15) Activated Partial Thromboplast Time 24.9 SEC (24.5-34.5) LFT Test 06/29/24 03:20 Alanine Aminotransferase (ALT) 18 U/L (7-40) Alkaline Phosphatase 251 U/L (46-116) H Aspartate Amino Transferase (AST) 30 U/L (13-40) Total Bilirubin 0.3 mg/dL (0.2-1.0) Urinalysis Test 06/27/24 00:20 Urine Color Dark-orange (Yellow) Urine Clarity Ex.turbid (Clear) Urine pH 5.0 (5.0-9.0) Urine Specific [place] 1.021 (1.001-1.035) Urine Protein 1+ (Negative) H Urine Ketones Negative (Negative) Urine Blood 1+ /uL (Negative) H Urine Nitrite Negative (Negative) Urine Bilirubin 1+ (Negative) H Urine Urobilinogen 2 mg/dL (Negative) H Urine Leukocyte Esterase Negative /uL (Negative) Urine RBC 21 /hpf (0 - 4) Urine Microscopic WBC 50 /HPF (0-5) H Urine Squamous Epithelial Cells None seen /hpf (<5) Urine Bacteria None seen /hpf (None Seen) Urine Hyaline Casts Many /lpf (0 - 2) Urine Mucus Few (None Seen) Urine Sodium Pending Urine Glucose Normal mg/dL (Normal) Blood Gas Results Test 06/29/24 11:24 Arterial Blood pH 7.316 (7.350-7.450) FiO2 % 30.0 Microbiology Microbiology Date/Time Source Procedure Growth Status 06/27/24 00:05 Sputum Endotracheal Wash Gram Stain - Final Resulted 06/27/24 00:05 Sputum Endotracheal Wash Respiratory Culture - Preliminary Resulted 06/26/24 21:30 Blood Blood Culture - Preliminary Resulted Assessment/Plan Assessment/Plan Acute severe sepsis with septic shock Acute hypoxic respiratory failure Acute severe metabolic acidosis Acute kidney injury Hypokalemia Anemia Lactic acidosis Hypocalcemia Bilateral lung masses 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 History of colon cancer and surgery 4 years ago, patient was supposed to follow up after surgery for chemo and radiation but she did not History of hypertension History of type 2 diabetes Severe coagulopathy Disseminated intravascular coagulation Plan Mechanical intubation Broad-spectrum antibiotics empirically meropenem and vancomycin Nephrology consult Pulmonary consult Give fresh frozen plasma Vasopressors as needed Protonix IV Bumex drip per Nephrology 06/28/24: IV fluids Vasopressors Sedation as needed IV antibiotics Fresh plasma Echo Cardiology consult Hem-Onc consult Protonix drip 06/29/2024: Septic shock: Continue vasopressors Continue IV antibiotics meropenem and vancomycin Coagulopathy Acute kidney injury possibly due to ATN Acute respiratory failure Diffuse metastatic disease unknown primary Multi organ failure Hyperkalemia, resolved Lactic acidosis Hypoalbuminemia Hyperphosphatemia Possible tumor lysis syndrome Dialysis is being done per Nephrology Albumin IV Poor prognosis The patient is still full code Plan discussed with: Other My Orders Orders - SCOOBY MCADAMS MD Procedure Category Date Status Time Fentanyl Drip PHA 06/28/24 In Process 2500mcg/250mlns 10:15 Communication Order ORDERS 06/28/24 Transmitted 10:15 * Cardiology Consult CONS 06/28/24 Transmitted 17:52 * Hematology/Oncology CONS 06/28/24 Transmitted Consult 17:54 Cleanse Wound With SILVIA 06/28/24 In Process Wound Clean 12:30 Apply Z-Guard SILVIA 06/28/24 In Process 12:30 * Dietary Consult CONS 06/28/24 Transmitted 18:10 Mrsa Screen MARIAJOSE 06/28/24 In Process 18:20 Date of Service: June 29, 2024 Billing Provider: SCOOBY MCADAMS MD Common Visit Codes: NOT BILLABLE SCOOBY MCADAMS MD June 29, 2024 12:33
[2024-06-29] MEDS: PHENYLEPHRINE INJ 80 MG in SODIUM CHL 0.9% 242 ML IV SCH (13:59)
[2024-06-29] MEDS: NOREPINEPHRINE BITARTRATE 32 MG in SODIUM CHL 0.9% 218 ML IV SCH (14:03)
[2024-06-29] MEDS: DOPamine 3200MCG/ML 250 ML IV SCH ×2 (14:50→15:46)
--- NOTE | 2024-06-29 15:27 | DVHPN2 ---
Progress Note - Dictate Date Seen: June 29, 2024 Medical Necessity Reason Pt with a Central, PICC or Fol: Yes The following are medically ne: Hendrix Catheter Reason for hendrix catheter: Strict I&O Subjective Patient seen and examined at bedside. Sedated, intubated on mechanical ventilator. Overnight events reviewed. vital signs Vital Sign Date Time Temp Pulse Resp B/P (MAP) Pulse Ox O2 Delivery O2 Flow Rate FiO2 06/29/24 15:15 99.7 113 19 90/55 (67) 90 99.7 06/29/24 13:20 30 06/29/24 08:00 Mechanical Ventilator+ Total Intake and Output 06/28/24 06/28/24 06/29/24 15:00 23:00 07:00 Intake Total 1572.600 ml 1435.600 ml 1506.600 ml Output Total 150 ml 500 ml Balance 1572.600 ml 1285.600 ml 1006.600 ml medications Current Medications Medications Dose Ordered Sig/Tavares Route Start Time Stop Time Status Last Admin Dose Admin Midazolam HCl 50 ml @ 1 mls/hr Q24H IV 06/26/24 22:15 06/28/24 23:58 3 MLS/HR Vasopressin 20 units/Sodium Chloride 100 ml @ 9 mls/hr Q11H7M IV 06/27/24 01:00 06/29/24 05:02 12 MLS/HR Vancomycin HCl 0 ml @ 0 mls/hr UD IV 06/27/24 03:30 Diagnostic Test (Pha) 1 strip IQ4HR 06/27/24 04:00 06/29/24 11:20 1 STRIP Insulin Human Regular IQ4HR SC 06/27/24 04:00 Dextrose 50 ml UD PRN IV 06/27/24 03:30 06/29/24 08:34 50 ML Ondansetron HCl 4 mg Q4HP PRN IV 06/27/24 03:30 Acetaminophen 650 mg Q6HP PRN PO 06/27/24 03:30 Nitroglycerin 0.4 mg Q5MINP PRN SL 06/27/24 03:30 Morphine Sulfate 2 mg Q30M PRN IV 06/27/24 03:30 Pantoprazole Sodium 50 ml @ 10 mls/hr Q5H IV 06/27/24 03:30 06/29/24 11:39 10 MLS/HR Meropenem 50 ml @ 17 mls/hr Q12HR IV 06/27/24 22:00 06/29/24 11:36 17 MLS/HR Patient Own Medication 16 mg DAILY IV 06/28/24 10:00 06/30/24 10:01 UNV Bumetanide 12.5 mg/Miscellaneous 50 ml @ 4 mls/hr [id number] IV 06/28/24 10:45 06/29/24 11:13 4 MLS/HR Calcium Acetate 2,001 mg TIDWM NG 06/28/24 14:00 06/29/24 11:26 2,001 MG Fentanyl Citrate 250 ml @ 2.5 mls/hr Q24H IV 06/28/24 10:15 06/28/24 15:43 2.5 MLS/HR Sodium Bicarbonate 150 ml/Dextrose 1,150 ml @ 100 mls/hr [id number] IV 06/28/24 23:00 06/28/24 23:13 100 MLS/HR Phenylephrine HCl 80 mg/Sodium Chloride 250 ml @ 7.5 mls/hr Q24H IV 06/29/24 12:15 06/29/24 13:59 29.063 MLS/HR Norepinephrine Bitartrate 32 mg/ Sodium Chloride 250 ml @ 0.938 mls/ hr Q24H IV 06/29/24 12:15 06/29/24 14:03 14.063 MLS/HR Epinephrine HCl 16 mg/Dextrose 250 ml @ 1.875 mls/ hr Q24H IV 06/29/24 12:15 06/29/24 14:42 1.875 MLS/HR Dopamine HCl/ Dextrose 250 ml @ 0 mls/hr Q0M IV 06/29/24 12:15 06/29/24 14:50 2 MLS/HR Dextrose 1,000 ml @ 50 mls/hr Q20H IV 06/29/24 14:00 objective Gen.: Patient lying in bed in medical ICU. Sedated, intubated on mechanical ventilator. Head: Normocephalic, atraumatic. Eyes: PERRLA. Ears: Normal external anatomy. Throat: Endotracheal tube and orogastric tube in place. Neck: Supple, trachea midline. Chest: Transmitted breath sounds bilaterally. Decreased air entry bilaterally. No wheezing. Bibasilar crackles. Cardiovascular: Positive S1, positive S2. Regular rate and rhythm. Abdomen: Positive bowel sounds in all 4 quadrants. Soft, nontender, nondistended. : Hendrix in place. Normal external genitalia. Rectal: Deferred. Skin: Warm, dry. Intact. Extremities: 2+ radial pulses bilaterally. No lower extremity edema. Neuro: Sedated. laboratory and microbiology Laboratory Tests 06/29/24 03:20 Test 06/29/24 03:20 Range/Units Serum Glucose 224 H 74-106 mg/dL Assessment/Plan Impression: Acute hypoxic respiratory failure On mechanical ventilator Septic shock Multiorgan failure Community-acquired pneumonia Acute renal failure ? GI hemorrhage Metastatic cancer Coagulopathy Events: Remains on vent support On AC mode; RR 18, VT 500, PEEP 5, FiO2 30% Titrate FIO2 to keep O2 saturation above 90%. ABG reviewed, notable for acidemia d/t metabolic acidosis Chest x-ray reviewed. On bicarb drip On multiple pressors for hemodynamic support Levophed 30 mcg/min, dopamine, Gopi-Synephrine and vasopressin Titrate to keep mean arterial pressure greater than 65 mmHg. Sedated on Versed, Fentanyl Continue antibiotics. Monitor hemoglobin Protonix for GI prophylaxis Continue diuresis w/ Bumex drip Monitor renal function Monitor electrolytes. Supplement as necessary. Monitor ins and outs. Nephrology recs appreciated. Poor prognosis due to multiple co-morbidities. Labs and imaging reviewed. Rest of plan as noted below. Plan: s/p intubation on mechanical ventilator. On AC mode; RR 18, VT 500, PEEP 5, FiO2 30% Titrate FIO2 to keep O2 saturation above 90%. VAP bundle. Daily ABG and CXR while intubated Sedate for ventilator synchrony Continue antibiotics. F/u cultures. Monitor hemoglobin Transfuse if less than 7.0 g/dL. On multiple pressors for hemodynamic support Titrate to keep mean arterial pressure greater than 65 mmHg. IV fluids with sodium bicarb drip with 3 amps bicarb - at 75 ml/hr. Diurese w/ Bumex drip Monitor renal function Monitor electrolytes. Supplement as necessary. Monitor ins and outs. Maintain euvolemia. GI prophylaxis. DVT prophylaxis. Prognosis: Poor given patient's multiple co-morbidities. Condition: Critical Rest of plan per hospitalist and other consultants. A total of 35 minutes of critical care time was spent reviewing the patient record, examining the patient, making a diagnostic and therapeutic plan, discussing this plan with the medical personnel, following up on diagnostic studies and following the patient for clinical stability excluding any and all procedures. At least 50% of this time was spent in direct, [id number] contact. Thank you, Dr. Heredia, for allowing me to participate in this patient's care. Further recommendations will depend on the patient's clinical course. Please do not hesitate to contact me if you have any questions or concerns. This medical document was created using an electronic medical record system with [employer] dictation system. Although these documentations are being carefully reviewed, there may still be some phonetic and typographical changes. The errors are purely typographical, due to imperfection on the software program, and do not reflect any compromise in the patient's medical care. Dietary Evaluation Review Recommendations by RD: Protein Supplementation Comments: 1) Initiate Pro-Stat @ 30 mL qd. Flush 30 mL free H2O AC/PC. 2) Initiate Nephro-Julieth @ 1 tb qd 3) If patient remains NPO > 7 days, consider EN/TPN to meet at least 75% estimated needs 4) If GI route is preferred, consider Nepro @ 40 mL/hr goal rate as tolerated. TF regimen (including Pro-Stat) will provide 1828 kcals, 93g Pro, and 775 free mL H2O per 24 hrs. TF rate will meet ~ 91% daily estimated energy needs and ~86% daily estimated protein needs 5) Advance to renal diet, pending [facility] approval 6) Follow-up with nephrology, oncology, cardiology, and pulmonology 7) Continue to monitor I&O, labs, and skin integrity Expected Outcomes/Goals: 1) patient to receive nutrition support within 7 days of NPO status 2) labs and wound to improve 3) diet to advance 4) follow-up in 2-3 days Plan discussed with: Other (KODY Mackenzie) Critical Care Time(min): 35 CC Plasma Assessment Blood Product Administration S: 0400 MIKAL CALVERT MD June 29, 2024 15:27
[2024-06-29] MEDS: VANCOMYCIN 1GM/200ML PM 200 ML IV ONE (16:01)
[2024-06-29] MEDS: DEXTROSE 10% 1,000 ML IV SCH ×2 (16:01→19:00)
--- NOTE | 2024-06-29 16:09 | DVHPN2 ---
Progress Note - Dictate Date Seen: June 29, 2024 Medical Necessity Reason Pt with a Central, PICC or Fol: Yes The following are medically ne: Hendrix Catheter Reason for hendrix catheter: Strict I&O Subjective Patient is still intubated and sedated FiO2 30% peep of five Patient is on pressors because of sepsis Patient has evidence of metastatic disease of unknown primary vital signs Vital Sign Date Time Temp Pulse Resp B/P (MAP) Pulse Ox O2 Delivery O2 Flow Rate FiO2 06/29/24 15:46 87/54 06/29/24 15:15 99.7 113 19 90 99.7 06/29/24 13:20 30 06/29/24 10:00 Mechanical Ventilator+ Total Intake and Output 06/28/24 06/28/24 06/29/24 15:00 23:00 07:00 Intake Total 1572.600 ml 1435.600 ml 1506.600 ml Output Total 150 ml 500 ml Balance 1572.600 ml 1285.600 ml 1006.600 ml medications Current Medications Medications Dose Ordered Sig/Tavares Route Start Time Stop Time Status Last Admin Dose Admin Midazolam HCl 50 ml @ 1 mls/hr Q24H IV 06/26/24 22:15 06/28/24 23:58 3 MLS/HR Vasopressin 20 units/Sodium Chloride 100 ml @ 9 mls/hr Q11H7M IV 06/27/24 01:00 06/29/24 05:02 12 MLS/HR Vancomycin HCl 0 ml @ 0 mls/hr UD IV 06/27/24 03:30 Diagnostic Test (Pha) 1 strip IQ4HR 06/27/24 04:00 06/29/24 11:20 1 STRIP Insulin Human Regular IQ4HR SC 06/27/24 04:00 Dextrose 50 ml UD PRN IV 06/27/24 03:30 06/29/24 08:34 50 ML Ondansetron HCl 4 mg Q4HP PRN IV 06/27/24 03:30 Acetaminophen 650 mg Q6HP PRN PO 06/27/24 03:30 Nitroglycerin 0.4 mg Q5MINP PRN SL 06/27/24 03:30 Morphine Sulfate 2 mg Q30M PRN IV 06/27/24 03:30 Pantoprazole Sodium 50 ml @ 10 mls/hr Q5H IV 06/27/24 03:30 06/29/24 11:39 10 MLS/HR Meropenem 50 ml @ 17 mls/hr Q12HR IV 06/27/24 22:00 06/29/24 11:36 17 MLS/HR Patient Own Medication 16 mg DAILY IV 06/28/24 10:00 06/30/24 10:01 UNV Bumetanide 12.5 mg/Miscellaneous 50 ml @ 4 mls/hr [id number] IV 06/28/24 10:45 06/29/24 11:13 4 MLS/HR Calcium Acetate 2,001 mg TIDWM NG 06/28/24 14:00 06/29/24 11:26 2,001 MG Fentanyl Citrate 250 ml @ 2.5 mls/hr Q24H IV 06/28/24 10:15 06/28/24 15:43 2.5 MLS/HR Sodium Bicarbonate 150 ml/Dextrose 1,150 ml @ 100 mls/hr [id number] IV 06/28/24 23:00 06/28/24 23:13 100 MLS/HR Phenylephrine HCl 80 mg/Sodium Chloride 250 ml @ 7.5 mls/hr Q24H IV 06/29/24 12:15 06/29/24 13:59 29.063 MLS/HR Norepinephrine Bitartrate 32 mg/ Sodium Chloride 250 ml @ 0.938 mls/ hr Q24H IV 06/29/24 12:15 06/29/24 14:03 14.063 MLS/HR Epinephrine HCl 16 mg/Dextrose 250 ml @ 1.875 mls/ hr Q24H IV 06/29/24 12:15 06/29/24 14:42 1.875 MLS/HR Dextrose 1,000 ml @ 50 mls/hr Q20H IV 06/29/24 14:00 06/29/24 16:01 50 MLS/HR Dopamine HCl/ Dextrose 250 ml @ 7.641 mls/ hr Q24H IV 06/29/24 15:45 06/29/24 15:46 7.641 MLS/HR objective General Appearance: Other (Intubated and sedated) Lungs: Other (Bilateral diffused crackles and rhonchi) Cardiovascular: Regular rate, Normal S1, Normal S2 Abdomen: Other (Distended) Extremities: Other (1+ edema bilaterally in the legs) laboratory and microbiology Laboratory Tests 06/29/24 03:20 Test 06/29/24 03:20 Range/Units Serum Glucose 224 H 74-106 mg/dL Problems(with codes): (1) Elevated liver enzymes (2) Liver mass (3) Metastatic disease (4) Severe anemia (5) Lower GI bleed (6) Sepsis (7) Acute renal failure (8) Acute respiratory failure Prognosis PLAN On IV antibiotics meropenem and vancomycin Correct coagulopathy Ventilatory support Septic shock: Continue vasopressors Diffuse metastatic disease unknown primary Consider image guided biopsy once stabilized Dialysis is being done per Nephrology Albumin IV Poor prognosis [facility] refused transfer Consider lymphoproliferative disorder like lymphoma vs HCC Recommend IR guided biopsy of accessible mass Serum alpha fetoprotein is normal but CEA level is very high at 500 possibly colonic primary Prognosis poor Pt is likely a hospice candidate Dietary Evaluation Review Recommendations by RD: Protein Supplementation Comments: 1) Initiate Pro-Stat @ 30 mL qd. Flush 30 mL free H2O AC/PC. 2) Initiate Nephro-Julieth @ 1 tb qd 3) If patient remains NPO > 7 days, consider EN/TPN to meet at least 75% estimated needs 4) If GI route is preferred, consider Nepro @ 40 mL/hr goal rate as tolerated. TF regimen (including Pro-Stat) will provide 1828 kcals, 93g Pro, and 775 free mL H2O per 24 hrs. TF rate will meet ~ 91% daily estimated energy needs and ~86% daily estimated protein needs 5) Advance to renal diet, pending [facility] approval 6) Follow-up with nephrology, oncology, cardiology, and pulmonology 7) Continue to monitor I&O, labs, and skin integrity Expected Outcomes/Goals: 1) patient to receive nutrition support within 7 days of NPO status 2) labs and wound to improve 3) diet to advance 4) follow-up in 2-3 days Plan discussed with: Other (Eloina Whaley) CC Plasma Assessment Blood Product Administration S: [id number] KADEEM SERRANO MD June 29, 2024 16:09
[2024-06-29] MEDS: PHENYLEPHRINE HCL 10 MG/ML VL ONE ×2 (20:10→21:20)
[2024-06-29] MEDS: PHENYLEPHRINE IV 250 ML IV ONE (21:08)
--- NOTE | 2024-06-29 22:22 | DVH ---
CHEST RADIOGRAPH Indication: INTUBATED, ARF Technique: Single frontal view of the chest was obtained COMPARISON: XY CHEST PORTABLE on DOS: 06/29/24 FINDINGS / IMPRESSION: Lines and Tubes: Tip of the ETT is approximately 2 cm above the melissa. Bilateral IJ central venous c atheters and NG tube again noted. Lungs: Lung volumes are low with bibasilar subsegmental atelectasis/consolidation. Pulmonary vascular congestion. Pleura: No effusion. No pneumothorax. Cardiomediastinal contours: Unremarkable
[2024-06-29] MEDS: EPOETIN ALFA-EPBX 10,000 UNIT/1ML VIAL SC ONE (22:40)
[2024-06-30] VITALS (107 sets, daily range): BP systolic 62–110; BP diastolic 40–59; PULSE 94–116; RESP 13–23; TEMP 97.4–99.1; O2SAT 19–100
[2024-06-30 00:41] LABS: Base Excess -22.1 mmol/L (-2.0-3.0)
[2024-06-30] MEDS: SODIUM BICARB 50mEq/50ml Vial 100 ML in D5W 5% 1,000 ML IV SCH (00:59)
[2024-06-30] MEDS: SODIUM BICARB 8.4% 50Meq/50ml SYR Vial IV ONE ×3 (00:59→04:30)
[2024-06-30] MEDS: SODIUM BICARB 8.4% 50Meq/50ml SYR INJ ONE ×3 (01:00→05:08)
--- NOTE | 2024-06-30 01:36 | DVHSR ---
APPROVED REPORT EXAM: Two-dimensional and M-mode echocardiogram with Doppler and color Doppler. Blood Pressure: 100/57 mmHg INDICATION EF RISK FACTORS Height: 69, Weight: 178 DIMENSIONS LVDd3.9 (3.8-5.7cm)LA (2D)3.6 (1.9-4.0cm)Aortic Root3.5 (2.0-3.7cm) LVDs2.4 (2.5-4.0cm)LA (MM) (1.9-4.0cm)Aortic Cusp Exc0.8 (1.5-2.0cm) EF (%) 69.0 (55-70%)Rt. Atrium2.6 (1.9-4.0cm)Asc. Aorta cm Mitral Valve MitralMitral Stenosis E wave0.95m/sMV Mean GR.mmHg A wave1.50m/sMV Peak GR.73mmHg E/A ratio0.62D MVAcm2 DECEL [id number] 1/2 Znwf13wa IVRTmsDop MVA3.87cm2 Aortic Valve Aortic ValveAortic Stenosis V10.98m/J Luis Mean GR.20mmHg V23.02m/J Luis Peak GR.38mmHg LVOT Diameter2.2 (1.8-2.4cm)Doppler AVA1.23cm2 Tricuspid Valve TR Velocity2.43m/s [id number] Other Information Technically limited study due to patient on a vent. Conclusion MODERATE DEGREE LVH AND MODERATE DEGREE LV DIASTOLIC DYSFUNCTION LV EF IS 70% AND IS NORMAL HEAVILY CALCIFIED AORTIC LEAFLETS MODERAE DEGREE AORTIC TENOSIS AORTIC VALVE AREA IS ONLY 1.23 CM SQUARE HEAVILY CALCIFIED POSTERIOR MITRAL LEAFLET AND ANNULUS NO EFFUSION
[2024-06-30 02:43] LABS: Base Excess -16.7 mmol/L (-2.0-3.0)
[2024-06-30] MEDS: ALBUMIN 25% 100 ML IV ONE ×3 (03:12→04:44)
[2024-06-30] MEDS: SODIUM BICARB 8.4% 50Meq/50ml SYR INJ IV ONE (03:12)
[2024-06-30] MEDS ORDERED: SODIUM CHLORIDE 0.9% 250 ML IV ONE (04:30)
[2024-06-30] MEDS: DEXTROSE 10% 1,000 ML IV SCH ×2 (04:35→17:30)
[2024-06-30 04:57] LABS: Base Excess -15.3 mmol/L (-2.0-3.0)
[2024-06-30 04:58] LABS: Hemoglobin 7.3 g/dL (12.2-16.2); Mean Corpuscular Hemoglobin 28.1 pg (28.0-32.0); Mean Corpuscular Hgb Conc. 29.1 g/dL (32.0-36.0); Mean Corpuscular Volume 96.9 fL (80.0-100.0); Platelet Count (auto) 69 10^3/uL (140-450); Red Blood Cells 2.58 10^6/uL (4.0-5.20); Red Cell Distribution Width 20.4 % (11.8-14.3); White Blood Cell 23.7 10^3/uL (4.4-10.8)
[2024-06-30 05:00] LABS: Basophils % (manual) 0 (0.0-2.0); Blast Cells 0; Eosinophils % (manual) 0 (0-7); Promyelocytes % 0; Reactive Lymphocytes 0
[2024-06-30 05:06] LABS: Chloride 98 mmol/L (98-107); Potassium 4.6 mmol/L (3.5-5.1); Sodium 138 mmol/L (136-145)
[2024-06-30 05:07] LABS: Anion Gap 26 (5-15)
[2024-06-30 05:08] LABS: Calcium 7.7 mg/dL (8.7-10.4); Carbon Dioxide 14 mmol/L (20-31)
[2024-06-30 05:13] LABS: BUN/Creatinine Ratio 13.9 (10.0-20.0)
[2024-06-30] MEDS: SODIUM CHLORIDE 0.9% 250 ML IV ONE (05:15)
[2024-06-30] MEDS: LACTULOSE 20Gm/30ML SOLN PO SCH (05:18)
[2024-06-30 05:19] LABS: Blood Urea Nitrogen 27 mg/dL (9-23); Glucose 202 mg/dL (74-106)
[2024-06-30 05:29] LABS: Lactic Acid w/Reflex 20.8 mmol/L (0.4-2.0)
[2024-06-30 06:26] LABS: Base Excess -13.4 mmol/L (-2.0-3.0)
[2024-06-30 06:38] LABS: Band Neutrophils % (manual) 27; Lymphocytes % (manual) 5 (10.0-50.0); Monocytes % (manual) 2 (0-12)
[2024-06-30 06:39] LABS: Anisocytosis Moderate; Hypochromia Slight; Macrocytosis Slight; Metamyelocytes % 1; Myelocytes % 2; Platelet Estimate Markedly Decreased; Polychromasia Slight; Target Cell FEW
--- NOTE | 2024-06-30 06:50 | DVH ---
INDICATION: INTUBATED, ARF TECHNIQUE: Single frontal view of the chest was obtained COMPARISON: XY CHEST PORTABLE on DOS: 06/29/24, XY CHEST PORTABLE on DOS: 06/29/24, XY CHEST XRAY 1 VIE W on DOS: 06/28/24, XY CHEST XRAY 1 VIEW on DOS: 06/27/24, XY CHEST XRAY 1 VIEW on DOS: 06/27/24, XY CHEST PORTABLE on DOS: 06/29/24 FINDINGS: Lines and Tubes: Unchanged. Lungs: diminished lung volumes which exaggerates the pulmonary vasculature. Pleura : No effusion. No pneumothorax. Cardiomediastinal contours: Unremarkable Bones: Unremarkable IMPRESSION: NO improvement
[2024-06-30 08:12] LABS: Base Excess -14.4 mmol/L (-2.0-3.0)
[2024-06-30 08:45] LABS: Basophils # (auto) 0.1 10 ^3/uL (0-0.2); Eosinophils # (auto) 0.1 10 ^3/uL (0-0.8); Eosinophils % (auto) 0.4 % (0.0-7.0); Hemoglobin 7.4 g/dL (12.2-16.2)
[2024-06-30 08:47] LABS: Basophils % (auto) 0.2 % (0.0-2.0); Hematocrit 24.8 % (36.0-46.0); Lymphocytes # (auto) 1.2 10 ^3/uL (0.4-5.4); Lymphocytes % (auto) 4.5 % (10.0-50.0); Mean Corpuscular Hemoglobin 28.7 pg (28.0-32.0); Mean Corpuscular Hgb Conc. 29.8 g/dL (32.0-36.0); Mean Corpuscular Volume 96.5 fL (80.0-100.0); Monocytes # (auto) 0.9 10 ^3/uL (0-1.3); Monocytes % (auto) 3.3 % (0.0-12.0); Neutrophils # (auto) 23.8 10 ^3/uL (1.6-8.6); Neutrophils % (auto) 91.6 % (37.0-80.0); Nucleated Red Blood Cells % 12.2 %; Platelet Count (auto) 60 10^3/uL (140-450); Red Blood Cells 2.57 10^6/uL (4.0-5.20); Red Cell Distribution Width 20.3 % (11.8-14.3)
--- NOTE | 2024-06-30 08:47 | DVHPN2 ---
Progress Note Date Seen: June 30, 2024 Medical Necessity Reason Pt with a Central, PICC or Fol: Yes The following are medically ne: Hendrix Catheter Reason for hendrix catheter: Strict I&O Subjective Review of Systems: RESPIRATORY:Abnormal Other Systems: Patient seen and examined by myself today in follow-up, patient remained intubated on ventilator Objective vital signs Vital Sign Date Time Temp Pulse Resp B/P (MAP) Pulse Ox O2 Delivery O2 Flow Rate FiO2 06/30/24 08:00 30 06/30/24 08:00 21 Mechanical Ventilator+ 06/30/24 08:00 113 06/30/24 07:50 73/50 (58) 06/30/24 06:30 99.1 210.4 06/30/24 01:00 22 Total Intake and Output 06/29/24 06/29/24 06/30/24 15:00 23:00 07:00 Intake Total 1682.301 ml 1765.968 ml 2525.747 ml Output Total 75 ml 100 ml Balance 1682.301 ml 1690.968 ml 2425.747 ml medications Current Medications Medications Dose Ordered Sig/Tavares Route Start Time Stop Time Status Last Admin Dose Admin Midazolam HCl 50 ml @ 1 mls/hr Q24H IV 06/26/24 22:15 06/29/24 17:38 3 MLS/HR Vasopressin 20 units/Sodium Chloride 100 ml @ 9 mls/hr Q11H7M IV 06/27/24 01:00 06/30/24 06:51 12 MLS/HR Vancomycin HCl 0 ml @ 0 mls/hr UD IV 06/27/24 03:30 Diagnostic Test (Pha) 1 strip IQ4HR 06/27/24 04:00 06/30/24 08:21 1 STRIP Insulin Human Regular IQ4HR SC 06/27/24 04:00 Dextrose 50 ml UD PRN IV 06/27/24 03:30 06/29/24 17:38 50 ML Ondansetron HCl 4 mg Q4HP PRN IV 06/27/24 03:30 Acetaminophen 650 mg Q6HP PRN PO 06/27/24 03:30 Nitroglycerin 0.4 mg Q5MINP PRN SL 06/27/24 03:30 Morphine Sulfate 2 mg Q30M PRN IV 06/27/24 03:30 Pantoprazole Sodium 50 ml @ 10 mls/hr Q5H IV 06/27/24 03:30 06/30/24 06:57 10 MLS/HR Meropenem 50 ml @ 17 mls/hr Q12HR IV 06/27/24 22:00 06/29/24 22:41 17 MLS/HR Patient Own Medication 16 mg DAILY IV 06/28/24 10:00 06/30/24 10:01 UNV Bumetanide 12.5 mg/Miscellaneous 50 ml @ 4 mls/hr [id number] IV 06/28/24 10:45 06/29/24 23:43 4 MLS/HR Calcium Acetate 2,001 mg TIDWM NG 06/28/24 14:00 06/30/24 08:20 2,001 MG Fentanyl Citrate 250 ml @ 2.5 mls/hr Q24H IV 06/28/24 10:15 06/28/24 15:43 2.5 MLS/HR Phenylephrine HCl 80 mg/Sodium Chloride 250 ml @ 7.5 mls/hr Q24H IV 06/29/24 12:15 06/30/24 04:45 33.75 MLS/HR Norepinephrine Bitartrate 32 mg/ Sodium Chloride 250 ml @ 0.938 mls/ hr Q24H IV 06/29/24 12:15 06/29/24 14:03 14.063 MLS/HR Epinephrine HCl 16 mg/Dextrose 250 ml @ 1.875 mls/ hr Q24H IV 06/29/24 12:15 06/29/24 14:42 1.875 MLS/HR Dopamine HCl/ Dextrose 250 ml @ 7.641 mls/ hr Q24H IV 06/29/24 15:45 06/30/24 05:53 30.563 MLS/HR Sodium Bicarbonate 100 ml/Dextrose 1,100 ml @ 100 mls/hr Q11H IV 06/30/24 00:45 06/30/24 00:59 100 MLS/HR Dextrose 1,000 ml @ 100 mls/hr Q10H IV 06/30/24 04:35 06/30/24 08:20 100 MLS/HR Lactulose 30 ml Q6HR PO 06/30/24 05:18 Hydrocortisone Sodium Succinate 100 mg Q8HR IV 06/30/24 08:00 UNV Examination: LUNGS:Normal, CVS:Normal, MSK:Normal laboratory and microbiology Test 06/30/24 08:28 Range/Units Serum Glucose Pending Microbiology Date/Time Source Procedure Growth Status 06/28/24 18:20 Nose MRSA Screen - Final Complete 06/27/24 00:05 Sputum Endotracheal Wash Gram Stain - Final Resulted 06/27/24 00:05 Sputum Endotracheal Wash Respiratory Culture - Preliminary Resulted 06/26/24 21:30 Blood Blood Culture - Preliminary Resulted Problem List/Assessment/Plan Problem List/Assessment/Plan Acute kidney injury, rule out tumor lysis syndrome and ATN Acute respiratory failure, patient intubated on ventilator Diffuse metastatic disease, primary source unknown Septic shock requiring pressor support Hypovolemic shock Acute blood loss anemia requiring transfusion Multiorgan failure Hyperkalemia, resolved Lactic acidosis Hypoglycemia Transaminitis Hypoalbuminemia Hyperammonemia Hyperuricemia Hyperphosphatemia Tumor lysis syndrome Recommendations Patient very unstable for hemodialysis Patient on max IV pressor support Hendrix catheter Strict I&Os IVF D10 W at 30 cc/hour Calcium acetate 2001 mg NG tube t.i.d. IV antibiotics Poor prognosis r Plan discussed with: Daughter, Other My Orders My Orders Orders - PAUL MERRITT MD Procedure Category Date Status Time Sodium Chl 0.9% PHA 06/29/24 In Process (Ns... 12:15 Sodium Chl 0.9% PHA 06/29/24 In Process (Ns... 12:15 D5w 5% (Dextrose 5%) PHA 06/29/24 In Process W/Epinephrine Hcl I 12:15 Communication Order ORDERS 06/29/24 Transmitted 20:13 Dextrose 10% PHA 06/30/24 In Process 04:35 Dietary Evaluation Review Recommendations by RD: Protein Supplementation Comments: 1) Initiate Pro-Stat @ 30 mL qd. Flush 30 mL free H2O AC/PC. 2) Initiate Nephro-Julieth @ 1 tb qd 3) If patient remains NPO > 7 days, consider EN/TPN to meet at least 75% estimated needs 4) If GI route is preferred, consider Nepro @ 40 mL/hr goal rate as tolerated. TF regimen (including Pro-Stat) will provide 1828 kcals, 93g Pro, and 775 free mL H2O per 24 hrs. TF rate will meet ~ 91% daily estimated energy needs and ~86% daily estimated protein needs 5) Advance to renal diet, pending [facility] approval 6) Follow-up with nephrology, oncology, cardiology, and pulmonology 7) Continue to monitor I&O, labs, and skin integrity Expected Outcomes/Goals: 1) patient to receive nutrition support within 7 days of NPO status 2) labs and wound to improve 3) diet to advance 4) follow-up in 2-3 days CC Plasma Assessment Blood Product Administration S: [id number] PAUL MERRITT MD June 30, 2024 08:47
[2024-06-30 09:03] LABS: Albumin 2.1 g/dL (3.2-4.8); Alkaline Phosphatase 242 U/L (46-116); Anion Gap 25 (5-15); BUN/Creatinine Ratio 12.5 (10.0-20.0); Bilirubin, Total 5.7 mg/dL (0.2-1.0); Blood Urea Nitrogen 24 mg/dL (9-23); Calcium 8.1 mg/dL (8.7-10.4); Carbon Dioxide 15 mmol/L (20-31); Chloride 97 mmol/L (98-107); Glucose 153 mg/dL (74-106); Potassium 4.3 mmol/L (3.5-5.1); Sodium 137 mmol/L (136-145); Total Protein 3.9 g/dL (5.7-8.2)
[2024-06-30 09:23] LABS: Alanine Aminotransferase 146 U/L (7-40)
[2024-06-30 09:24] LABS: Aspartate Aminotransferase 1071 U/L (13-40)
[2024-06-30] MEDS: HYDROCORTISONE SOD SUCC 100 MG/2ML INJ VIAL IV SCH (11:57)
--- NOTE | 2024-06-30 12:34 | DVHPN2 ---
Subjective Still intubated and sedated Septic Maximize on vasopressors White count is 26 Hemoglobin 7.4 platelets are 60 Creatinine 1.9 Lactic acid 20.6 Total bilirubin is 5.7 AST 1071 ALT 146 Ammonia is 114 Changes from previous H/P or p: Changes Objective Vitals Vital Signs Date Time Temp Pulse Resp B/P (MAP) Pulse Ox O2 Delivery O2 Flow Rate FiO2 06/30/24 12:02 110 18 72/40 (51) 30 06/30/24 10:00 Mechanical Ventilator+ 06/30/24 08:30 96 06/30/24 08:00 97.9 97.9 Intake/Output Intake and Output 06/30/24 07:00 Intake Total 5974.016 ml Output Total 175 ml Balance 5799.016 ml Intake Oral 60 ml IV Total 5914.016 ml Output Urine Total 175 ml # Bowel Movements 1 General Appearance: Other (Intubated and sedated) Lungs: Other (Bilateral diffused crackles and rhonchi) Cardiovascular: Regular rate, Normal S1, Normal S2 Abdomen: Other (Distended) Extremities: Other (1+ edema bilaterally in the legs) Medications Current Medications Medications Dose Ordered Sig/Tavares Route Start Time Stop Time Status Last Admin Dose Admin Midazolam HCl 50 ml @ 1 mls/hr Q24H IV 06/26/24 22:15 06/29/24 17:38 3 MLS/HR Vasopressin 20 units/Sodium Chloride 100 ml @ 9 mls/hr Q11H7M IV 06/27/24 01:00 06/30/24 06:51 12 MLS/HR Vancomycin HCl 0 ml @ 0 mls/hr UD IV 06/27/24 03:30 Diagnostic Test (Pha) 1 strip IQ4HR 06/27/24 04:00 06/30/24 08:21 1 STRIP Insulin Human Regular IQ4HR SC 06/27/24 04:00 Dextrose 50 ml UD PRN IV 06/27/24 03:30 06/29/24 17:38 50 ML Ondansetron HCl 4 mg Q4HP PRN IV 06/27/24 03:30 Acetaminophen 650 mg Q6HP PRN PO 06/27/24 03:30 Nitroglycerin 0.4 mg Q5MINP PRN SL 06/27/24 03:30 Morphine Sulfate 2 mg Q30M PRN IV 06/27/24 03:30 Pantoprazole Sodium 50 ml @ 10 mls/hr Q5H IV 06/27/24 03:30 06/30/24 11:57 10 MLS/HR Meropenem 50 ml @ 17 mls/hr Q12HR IV 06/27/24 22:00 06/30/24 10:02 17 MLS/HR Patient Own Medication 16 mg DAILY IV 06/28/24 10:00 06/30/24 10:01 UNV Bumetanide 12.5 mg/Miscellaneous 50 ml @ 4 mls/hr [id number] IV 06/28/24 10:45 06/29/24 23:43 4 MLS/HR Calcium Acetate 2,001 mg TIDWM NG 06/28/24 14:00 06/30/24 12:28 2,001 MG Fentanyl Citrate 250 ml @ 2.5 mls/hr Q24H IV 06/28/24 10:15 06/28/24 15:43 2.5 MLS/HR Phenylephrine HCl 80 mg/Sodium Chloride 250 ml @ 7.5 mls/hr Q24H IV 06/29/24 12:15 06/30/24 04:45 33.75 MLS/HR Norepinephrine Bitartrate 32 mg/ Sodium Chloride 250 ml @ 0.938 mls/ hr Q24H IV 06/29/24 12:15 06/29/24 14:03 14.063 MLS/HR Epinephrine HCl 16 mg/Dextrose 250 ml @ 1.875 mls/ hr Q24H IV 06/29/24 12:15 06/29/24 14:42 1.875 MLS/HR Dopamine HCl/ Dextrose 250 ml @ 7.641 mls/ hr Q24H IV 06/29/24 15:45 06/30/24 10:03 45.844 MLS/HR Sodium Bicarbonate 100 ml/Dextrose 1,100 ml @ 100 mls/hr Q11H IV 06/30/24 00:45 06/30/24 11:57 100 MLS/HR Dextrose 1,000 ml @ 100 mls/hr Q10H IV 06/30/24 04:35 06/30/24 08:20 100 MLS/HR Lactulose 30 ml Q6HR PO 06/30/24 05:18 Hydrocortisone Sodium Succinate 100 mg Q8HR IV 06/30/24 08:00 06/30/24 11:57 100 MG Laboratory Results Laboratory Tests 06/30/24 08:28 Chemistry Test 06/30/24 04:40 06/30/24 08:28 Calcium Level 7.7 mg/dL (8.7-10.4) L 8.1 mg/dL (8.7-10.4) L Albumin 2.1 g/dL (3.2-4.8) L Total Protein 3.9 g/dL (5.7-8.2) L LFT Test 06/30/24 08:28 Alanine Aminotransferase (ALT) 146 U/L (7-40) H Alkaline Phosphatase 242 U/L (46-116) H Aspartate Amino Transferase (AST) 1071 U/L (13-40) H Total Bilirubin 5.7 mg/dL (0.2-1.0) H Urinalysis Test 06/27/24 00:20 Urine Color Dark-orange (Yellow) Urine Clarity Ex.turbid (Clear) Urine pH 5.0 (5.0-9.0) Urine Specific Hydro 1.021 (1.001-1.035) Urine Protein 1+ (Negative) H Urine Ketones Negative (Negative) Urine Blood 1+ /uL (Negative) H Urine Nitrite Negative (Negative) Urine Bilirubin 1+ (Negative) H Urine Urobilinogen 2 mg/dL (Negative) H Urine Leukocyte Esterase Negative /uL (Negative) Urine RBC 21 /hpf (0 - 4) Urine Microscopic WBC 50 /HPF (0-5) H Urine Squamous Epithelial Cells None seen /hpf (<5) Urine Bacteria None seen /hpf (None Seen) Urine Hyaline Casts Many /lpf (0 - 2) Urine Mucus Few (None Seen) Urine Glucose Normal mg/dL (Normal) Blood Gas Results Test 06/30/24 00:31 06/30/24 02:30 06/30/24 04:50 06/30/24 06:02 Arterial Blood pH 7.024 (7.350-7.450) 7.145 (7.350-7.450) 7.204 (7.350-7.450) 7.235 (7.350-7.450) FiO2 % 30.0 30.0 30.0 30.0 Test 06/30/24 08:03 Arterial Blood pH 7.230 (7.350-7.450) FiO2 % 30.0 Microbiology Microbiology Date/Time Source Procedure Growth Status 06/28/24 18:20 Nose MRSA Screen - Final Complete 06/27/24 00:05 Sputum Endotracheal Wash Gram Stain - Final Resulted 06/27/24 00:05 Sputum Endotracheal Wash Respiratory Culture - Preliminary Resulted 06/26/24 21:30 Blood Blood Culture - Preliminary Resulted Assessment/Plan Assessment/Plan Acute severe sepsis with septic shock Acute hypoxic respiratory failure Acute severe metabolic acidosis Acute kidney injury Hypokalemia Anemia Lactic acidosis Hypocalcemia Bilateral lung masses 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 History of colon cancer and surgery 4 years ago, patient was supposed to follow up after surgery for chemo and radiation but she did not History of hypertension History of type 2 diabetes Severe coagulopathy Disseminated intravascular coagulation Plan Mechanical intubation Broad-spectrum antibiotics empirically meropenem and vancomycin Nephrology consult Pulmonary consult Give fresh frozen plasma Vasopressors as needed Protonix IV Bumex drip per Nephrology 06/28/24: IV fluids Vasopressors Sedation as needed IV antibiotics Fresh plasma Echo Cardiology consult Hem-Onc consult Protonix drip 06/29/2024: Septic shock: Continue vasopressors Continue IV antibiotics meropenem and vancomycin Coagulopathy Acute kidney injury possibly due to ATN Acute respiratory failure Diffuse metastatic disease unknown primary Multi organ failure Hyperkalemia, resolved Lactic acidosis Hypoalbuminemia Hyperphosphatemia Possible tumor lysis syndrome Dialysis is being done per Nephrology Albumin IV Poor prognosis The patient is still full code 06/30/2024: Severe sepsis with septic shock Severe lactic acidosis Acute kidney injury Liver shock Hyperbilirubinemia Multi organ failure Acute hypoxic respiratory failure DIC Thrombocytopenia Discussed with the son at the bedside, explained to him the very poor prognosis, he is still requesting for the patient to be full code Maximized vasopressors Very poor prognosis Full code IV fluids D5 with sodium bicarbonate and the 10 Dopamine Epinephrine Vasopressin IV antibiotics meropenem and vancomycin Protonix Plan discussed with: Son, Other My Orders Orders - SCOOBY MCADAMS MD Procedure Category Date Status Time Code Status CODE 06/29/24 Transmitted 12:32 Chest Portable XY 06/29/24 Resulted 21:38 Chest Portable XY 06/30/24 Resulted 04:00 Date of Service: June 30, 2024 Billing Provider: SCOOBY MCADAMS MD Common Visit Codes: NOT BILLABLE SCOOBY MCADAMS MD June 30, 2024 12:34
--- NOTE | 2024-06-30 23:11 | DVHPN2 ---
Progress Note - Dictate Date Seen: June 30, 2024 Medical Necessity Reason Pt with a Central, PICC or Fol: Yes The following are medically ne: Hendrix Catheter Reason for hendrix catheter: Strict I&O Subjective Patient seen and examined at bedside. intubated on mechanical ventilator. Overnight events reviewed. vital signs Vital Sign Date Time Temp Pulse Resp B/P (MAP) Pulse Ox O2 Delivery O2 Flow Rate FiO2 06/30/24 22:59 93/54 06/30/24 22:45 103 18 06/30/24 22:00 30 06/30/24 22:00 97.4 97.4 06/30/24 22:00 Mechanical Ventilator+ 06/30/24 21:56 100 Total Intake and Output 06/29/24 06/29/24 06/30/24 15:00 23:00 07:00 Intake Total 1682.301 ml 1765.968 ml 2525.747 ml Output Total 75 ml 100 ml Balance 1682.301 ml 1690.968 ml 2425.747 ml medications Current Medications Medications Dose Ordered Sig/Tavares Route Start Time Stop Time Status Last Admin Dose Admin Midazolam HCl 50 ml @ 1 mls/hr Q24H IV 06/26/24 22:15 06/29/24 17:38 3 MLS/HR Vasopressin 20 units/Sodium Chloride 100 ml @ 9 mls/hr Q11H7M IV 06/27/24 01:00 06/30/24 22:59 12 MLS/HR Vancomycin HCl 0 ml @ 0 mls/hr UD IV 06/27/24 03:30 Diagnostic Test (Pha) 1 strip IQ4HR 06/27/24 04:00 06/30/24 20:52 1 STRIP Insulin Human Regular IQ4HR SC 06/27/24 04:00 Dextrose 50 ml UD PRN IV 06/27/24 03:30 06/30/24 17:17 50 ML Ondansetron HCl 4 mg Q4HP PRN IV 06/27/24 03:30 Acetaminophen 650 mg Q6HP PRN PO 06/27/24 03:30 Nitroglycerin 0.4 mg Q5MINP PRN SL 06/27/24 03:30 Morphine Sulfate 2 mg Q30M PRN IV 06/27/24 03:30 Pantoprazole Sodium 50 ml @ 10 mls/hr Q5H IV 06/27/24 03:30 06/30/24 21:37 10 MLS/HR Meropenem 50 ml @ 17 mls/hr Q12HR IV 06/27/24 22:00 06/30/24 21:40 17 MLS/HR Patient Own Medication 16 mg DAILY IV 06/28/24 10:00 06/30/24 10:01 UNV Bumetanide 12.5 mg/Miscellaneous 50 ml @ 4 mls/hr [id number] IV 06/28/24 10:45 06/30/24 14:10 4 MLS/HR Calcium Acetate 2,001 mg TIDWM NG 06/28/24 14:00 06/30/24 17:18 2,001 MG Fentanyl Citrate 250 ml @ 2.5 mls/hr Q24H IV 06/28/24 10:15 06/28/24 15:43 2.5 MLS/HR Phenylephrine HCl 80 mg/Sodium Chloride 250 ml @ 7.5 mls/hr Q24H IV 06/29/24 12:15 06/30/24 19:55 33.75 MLS/HR Norepinephrine Bitartrate 32 mg/ Sodium Chloride 250 ml @ 0.938 mls/ hr Q24H IV 06/29/24 12:15 06/29/24 14:03 14.063 MLS/HR Epinephrine HCl 16 mg/Dextrose 250 ml @ 1.875 mls/ hr Q24H IV 06/29/24 12:15 06/30/24 15:52 9.375 MLS/HR Dopamine HCl/ Dextrose 250 ml @ 7.641 mls/ hr Q24H IV 06/29/24 15:45 06/30/24 22:58 30.563 MLS/HR Sodium Bicarbonate 100 ml/Dextrose 1,100 ml @ 100 mls/hr Q11H IV 06/30/24 00:45 06/30/24 22:58 100 MLS/HR Lactulose 30 ml Q6HR PO 06/30/24 05:18 Hydrocortisone Sodium Succinate 100 mg Q8HR IV 06/30/24 08:00 06/30/24 21:54 100 MG Dextrose 1,000 ml @ 150 mls/hr Q6H40M IV 06/30/24 18:00 06/30/24 17:30 150 MLS/HR objective Gen.: Patient lying in bed in medical ICU. Intubated on mechanical ventilator. Head: Normocephalic, atraumatic. Eyes: PERRLA. Ears: Normal external anatomy. Throat: Endotracheal tube and orogastric tube in place. Neck: Supple, trachea midline. Chest: Transmitted breath sounds bilaterally. Decreased air entry bilaterally. No wheezing. Bibasilar crackles. Cardiovascular: Positive S1, positive S2. Regular rate and rhythm. Abdomen: Positive bowel sounds in all 4 quadrants. Soft, nontender, nondistended. : Hendrix in place. Normal external genitalia. Rectal: Deferred. Skin: Warm, dry. Intact. Extremities: 2+ radial pulses bilaterally. No lower extremity edema. Neuro: Off sedation laboratory and microbiology Laboratory Tests 06/30/24 08:28 Test 06/30/24 08:28 Range/Units Serum Glucose 153 H 74-106 mg/dL Assessment/Plan Impression: Acute hypoxic respiratory failure On mechanical ventilator Septic shock Multiorgan failure Community-acquired pneumonia Acute renal failure ? GI hemorrhage Metastatic cancer Coagulopathy Events: Remains on vent support On AC mode; RR 18, VT 500, PEEP 5, FiO2 30% ABG reviewed, notable for acidemia d/t metabolic acidosis Chest x-ray reviewed, diminished lung volumes. On bicarb drip On multiple pressors for hemodynamic support On epinephrine, norepinephrine, dopamine, Gopi-Synephrine and vasopressin 0.04 units/min Titrate to keep MAP above 65 mmHg/SBP above 90 mmHg. Off sedation Continue antibiotics. Monitor hemoglobin Protonix for GI prophylaxis Continue diuresis w/ Bumex drip Monitor renal function Monitor electrolytes. Supplement as necessary. Monitor ins and outs. Nephrology recs appreciated. Poor prognosis due to multiple co-morbidities. High likelihood of demise Labs and imaging reviewed. Rest of plan as noted below. Plan: s/p intubation on mechanical ventilator. On AC mode; RR 18, VT 500, PEEP 5, FiO2 30% Titrate FIO2 to keep O2 saturation above 90%. VAP bundle. Daily ABG and CXR while intubated Off sedation Continue antibiotics. F/u cultures. Monitor hemoglobin Transfuse if less than 7.0 g/dL. On multiple pressors for hemodynamic support Titrate to keep mean arterial pressure greater than 65 mmHg. IV fluids with sodium bicarb drip Diurese w/ Bumex drip Monitor renal function Monitor electrolytes. Supplement as necessary. Monitor ins and outs. Maintain euvolemia. GI prophylaxis. DVT prophylaxis. Prognosis: Poor given patient's multiple co-morbidities. Condition: Critical Rest of plan per hospitalist and other consultants. A total of 35 minutes of critical care time was spent reviewing the patient record, examining the patient, making a diagnostic and therapeutic plan, discussing this plan with the medical personnel, following up on diagnostic studies and following the patient for clinical stability excluding any and all procedures. At least 50% of this time was spent in direct, elio-zo-eava contact. Thank you, Dr. Heredia, for allowing me to participate in this patient's care. Further recommendations will depend on the patient's clinical course. Please do not hesitate to contact me if you have any questions or concerns. This medical document was created using an electronic medical record system with [employer] system. Although these documentations are being carefully reviewed, there may still be some phonetic and typographical changes. The errors are purely typographical, due to imperfection on the software program, and do not reflect any compromise in the patient's medical care. Dietary Evaluation Review Recommendations by RD: Protein Supplementation Comments: 1) Initiate Pro-Stat @ 30 mL qd. Flush 30 mL free H2O AC/PC. 2) Initiate Nephro-Julieth @ 1 tb qd 3) If patient remains NPO > 7 days, consider EN/TPN to meet at least 75% estimated needs 4) If GI route is preferred, consider Nepro @ 40 mL/hr goal rate as tolerated. TF regimen (including Pro-Stat) will provide 1828 kcals, 93g Pro, and 775 free mL H2O per 24 hrs. TF rate will meet ~ 91% daily estimated energy needs and ~86% daily estimated protein needs 5) Advance to renal diet, pending [facility] approval 6) Follow-up with nephrology, oncology, cardiology, and pulmonology 7) Continue to monitor I&O, labs, and skin integrity Expected Outcomes/Goals: 1) patient to receive nutrition support within 7 days of NPO status 2) labs and wound to improve 3) diet to advance 4) follow-up in 2-3 days Plan discussed with: Other (KODY Mackenzie) Critical Care Time(min): 35 CC Plasma Assessment Blood Product Administration S: [id number] MIKAL CALVERT MD June 30, 2024 23:11
[2024-07-01] VITALS (114 sets, daily range): BP systolic 77–113; BP diastolic 45–60; PULSE 99–106; RESP 17–27; TEMP 97.4–99; O2SAT 10–100
--- NOTE | 2024-07-01 05:11 | DVH ---
EXAM: XR Chest, 1 View CLINICAL INDICATION: INTUBATED, RESPIRATORY FAILURE TECHNIQUE: Frontal view of the chest. COMPARISON: XY CHEST PORTABLE on DOS: 06/30/24, XY CHEST PORTABLE on DOS: 06/29/24, XY CHEST PORTABLE on DOS: 06/29/24, XY CHEST PORTABLE on DOS: 06/26/24 FINDINGS: LUNGS AND PLEURAL SPACES: Pulmonary congestion and edema. Pneumonia cannot be excluded. No pneumot horax. HEART: Unremarkable. No cardiomegaly. MEDIASTINUM: Unremarkable. Normal mediastinal contour. BONES/JOINTS: Unremarkable. No acute fracture. TUBES, LINES AND DEVICES: Right internal jugular central venous catheter tip in the superior vena c jason. The endotracheal tube (ETT) is in satisfactory position. Enteric tube tip cannot be seen but i s below the diaphragm. OTHER FINDINGS: . . . IMPRESSION: Pulmonary congestion and edema. Pneumonia cannot be excluded.
[2024-07-01] MEDS: ALBUMIN 25% 100 ML IV ONE (05:45)
[2024-07-01 07:44] LABS: Base Excess -18.3 mmol/L (-2.0-3.0)
[2024-07-01 08:14] LABS: Hematocrit 20.2 % (36.0-46.0); Mean Corpuscular Hemoglobin 28.4 pg (28.0-32.0); Mean Corpuscular Hgb Conc. 29.1 g/dL (32.0-36.0); Mean Corpuscular Volume 97.5 fL (80.0-100.0); Platelet Count (auto) 36 10^3/uL (140-450); Red Blood Cells 2.07 10^6/uL (4.0-5.20); Red Cell Distribution Width 19.5 % (11.8-14.3)
[2024-07-01 08:22] LABS: Anion Gap 26 (5-15); BUN/Creatinine Ratio 12.2 (10.0-20.0); Potassium 4.2 mmol/L (3.5-5.1)
[2024-07-01 08:23] LABS: Alanine Aminotransferase 128 U/L (7-40); Alkaline Phosphatase 229 U/L (46-116); Blood Urea Nitrogen 24 mg/dL (9-23); Calcium 8.1 mg/dL (8.7-10.4); Carbon Dioxide 12 mmol/L (20-31); Chloride 89 mmol/L (98-107); Glucose 291 mg/dL (74-106); Hemoglobin 5.9 g/dL (12.2-16.2); Sodium 127 mmol/L (136-145); Total Protein 3.4 g/dL (5.7-8.2); White Blood Cell 30.6 10^3/uL (4.4-10.8)
[2024-07-01 08:24] LABS: Albumin 1.9 g/dL (3.2-4.8); Aspartate Aminotransferase 789 U/L (13-40)
[2024-07-01 08:25] LABS: Basophils % (manual) 0 (0.0-2.0); Eosinophils % (manual) 0 (0-7); Promyelocytes % 0; Reactive Lymphocytes 0
[2024-07-01 08:26] LABS: Bilirubin, Total 5.2 mg/dL (0.2-1.0)
[2024-07-01 09:47] LABS: Base Excess -17.1 mmol/L (-2.0-3.0)
[2024-07-01 09:49] LABS: Magnesium 1.7 mg/dL (1.6-2.6)
[2024-07-01 09:52] LABS: Phosphorus 7.1 mg/dL (2.4-5.1)
[2024-07-01 10:19] LABS: Uric Acid 9.1 mg/dL (3.1-7.8)
[2024-07-01 10:55] LABS: Band Neutrophils % (manual) 12; Blast Cells 3; Lymphocytes % (manual) 4 (10.0-50.0); Metamyelocytes % 3; Monocytes % (manual) 2 (0-12); Myelocytes % 3
[2024-07-01 10:56] LABS: Platelet Estimate Decreased
--- NOTE | 2024-07-01 13:49 | DVHPN2 ---
Progress Note Date Seen: July 01, 2024 Resident Creating Document: ARJUN PETERSON RESIDENT Medical Necessity Reason Pt with a Central, PICC or Fol: Yes The following are medically ne: Central Line, Hendrix Catheter Reason for hendrix catheter: Strict I&O Subjective Review of Systems This is a 73-year-old female with PMHx abdominal carcinoma status post surgery at [facility], refused chemotherapy-details unknown who was BIBA due to the chief complaint of generalized weakness and inability to eat or drink. Per patient's family who she lives with, patient experienced a fall 5 weeks back and hurt her right leg, he has been bed-bound since then. She did not follow up with the visits physician or go to the ER. Fallen even, patient has been experiencing generalized weakness, her appetite has been low and she has not been eating or drinking. Over the past week patient has been experiencing alternating diarrhea and constipation. EMS was called last week by the family but the patient declined receive any medical attention. 06/26-family reportedly called EMS again and EMS reported as her blood pressure is too low, family took the patient forcefully to the ER. Daughter also reports patient has been making less urine over the past days, urinating only once or twice daily. On arrival to the ER, patient was hypotensive 89/54 mmHg, saturating 88, 97% with non-rebreather mask. Patient was Intubated immediately. H&H 6.09/10, transaminitis, potassium elevated at 7, lactic acidosis. Past medical/surgical history: Unknown source of carcinoma probably abdominal per family-details unknown status post surgery, refused chemotherapy Home medications: Losartan, atorvastatin, ferrous sulfate, hydroxyzine Social history: Lives with family, denies smoking/drinking/drug use 06/27 - Patient seen and examined in the ER. Two packed RBCs transfused by the primary, discontinued half NS, started D5 with bicarb. Bumex drip started, Lokelma started. Dialysis ordered 06/28 - patient seen and examined in the ER. Overnight, underwent hemodialysis, nothing was taken out. Potassium decreased to 5 and 4. 07/01 - seen and examined in the ICU. Patient is oliguric, lactic acidosis, on 5 pressors. Discontinued IV fluids, started Bumex 1 milligram/hour Over the weekend, patient could not tolerate hemodialysis on 06/29. Objective vital signs Vital Sign Date Time Temp Pulse Resp B/P (MAP) Pulse Ox O2 Delivery O2 Flow Rate FiO2 07/01/24 12:21 98.7 106 26 113/57 98.7 07/01/24 11:33 100 30 07/01/24 10:00 Mechanical Ventilator+ Total Intake and Output 06/30/24 06/30/24 07/01/24 15:00 23:00 07:00 Intake Total 2534.008 ml 2809.445 ml 2710.008 ml Output Total 100 ml 11 ml Balance 2534.008 ml 2709.445 ml 2699.008 ml medications Current Medications Medications Dose Ordered Sig/Tavares Route Start Time Stop Time Status Last Admin Dose Admin Midazolam HCl 50 ml @ 1 mls/hr Q24H IV 06/26/24 22:15 06/29/24 17:38 3 MLS/HR Vasopressin 20 units/Sodium Chloride 100 ml @ 9 mls/hr Q11H7M IV 06/27/24 01:00 07/01/24 08:03 12 MLS/HR Vancomycin HCl 0 ml @ 0 mls/hr UD IV 06/27/24 03:30 Diagnostic Test (Pha) 1 strip IQ4HR 06/27/24 04:00 07/01/24 12:44 1 STRIP Insulin Human Regular IQ4HR SC 06/27/24 04:00 Dextrose 50 ml UD PRN IV 06/27/24 03:30 06/30/24 17:17 50 ML Ondansetron HCl 4 mg Q4HP PRN IV 06/27/24 03:30 Acetaminophen 650 mg Q6HP PRN PO 06/27/24 03:30 Nitroglycerin 0.4 mg Q5MINP PRN SL 06/27/24 03:30 Morphine Sulfate 2 mg Q30M PRN IV 06/27/24 03:30 Pantoprazole Sodium 50 ml @ 10 mls/hr Q5H IV 06/27/24 03:30 07/01/24 12:14 10 MLS/HR Meropenem 50 ml @ 17 mls/hr Q12HR IV 06/27/24 22:00 07/01/24 09:31 17 MLS/HR Calcium Acetate 2,001 mg TIDWM NG 06/28/24 14:00 07/01/24 09:30 2,001 MG Fentanyl Citrate 250 ml @ 2.5 mls/hr Q24H IV 06/28/24 10:15 06/28/24 15:43 2.5 MLS/HR Phenylephrine HCl 80 mg/Sodium Chloride 250 ml @ 7.5 mls/hr Q24H IV 06/29/24 12:15 07/01/24 10:21 33.75 MLS/HR Norepinephrine Bitartrate 32 mg/ Sodium Chloride 250 ml @ 0.938 mls/ hr Q24H IV 06/29/24 12:15 06/30/24 23:50 14.063 MLS/HR Epinephrine HCl 16 mg/Dextrose 250 ml @ 1.875 mls/ hr Q24H IV 06/29/24 12:15 06/30/24 15:52 9.375 MLS/HR Dopamine HCl/ Dextrose 250 ml @ 7.641 mls/ hr Q24H IV 06/29/24 15:45 07/01/24 11:13 30.563 MLS/HR Lactulose 30 ml Q6HR PO 06/30/24 05:18 Hydrocortisone Sodium Succinate 100 mg Q8HR IV 06/30/24 08:00 07/01/24 05:57 100 MG Bumetanide 25 mg/ Miscellaneous 100 ml @ 4 mls/hr Q24H IV 07/01/24 12:30 Examination Patient lying in the bed in ER, intubated and mechanically ventilated, RASS -4 General: Well-built, afebrile, palor, mucosae are dry Cardiovascular: Regular S1 and S2. Systolic ejection murmur heard at the left sternal border , no gallops or rubs. No JVD elevation. Bilateral 3+ pitting edema Respiratory: Normal B/L air entry on room air. Clear lung sounds on auscultation Abdomen: Soft, distended, hyperactive bowel sounds, no rebound tenderness, no organomegaly, no masses Genitourinary: Deferred MSK/skin: Bruises seen on bilateral lower extremities. Bilateral lower extremities have fluid-filled vesicles, draining serous discharge laboratory and microbiology Laboratory Tests 07/01/24 07:55 Test 07/01/24 07:55 Range/Units Serum Glucose 291 H 74-106 mg/dL Microbiology Date/Time Source Procedure Growth Status 06/28/24 18:20 Nose MRSA Screen - Final Complete 06/27/24 00:05 Sputum Endotracheal Wash Gram Stain - Final Complete 06/27/24 00:05 Sputum Endotracheal Wash Respiratory Culture - Final Complete 06/26/24 21:30 Blood Blood Culture - Final Staphylococcus hominis Staphylococcus epidermidis Complete Labs and/or images reviewed: Labs reviewed by me, Image(s) reviewed by me Problem List/Assessment/Plan Problem List/Assessment/Plan Acute kidney injury, rule out tumor lysis syndrome and ATN Diffuse metastatic disease, primary source unknown Septic shock requiring pressor support Hypovolemic shock Acute blood loss anemia requiring transfusion Thrombocytopenia Multiorgan failure Hyperkalemic crisis Lactic acidosis type B Anion gap metabolic acidosis Hypoglycemia Transaminitis, cholestatic pattern ? Cirrhosis Hypoalbuminemia Hyperammonemia Hyperuricemia Hyperphosphatemia Potassium 7 - > 5.4 -> 4 Phosphorus 9.9 - > 7.8 - > 7 Corrected Calcium 9.2 - >8 Uric acid 14.9 -> 11.6 -> 9 Abdominal ultrasound showing hepatic cirrhosis with heterogeneous mass seen throughout the liver, neoplasm can not be excluded. CT chest/abdomen/pelvis showing many soft tissue mass throughout chest/abdomen/pelvis along with diffuse lymphadenopathy. Plan: Patient could not tolerate hemodialysis 06/29. The only hemodialysis session was 06/28. Discontinued IV fluids, started IV Bumex 1 mg per hour drip Recommend heme oncology consultation Maintain hemoglobin greater than 7 Lokelma TID Patient received Ca gluconate IV along with multiple doses of sodium bicarbonate IV pushes. Usually patient receivedBumex drip along with D5W at 75 cc, each L containing 150 cc of sodium bicarb For kaliuresis Three doses of albumin 25% Q 8 hourly 06/27 Prelim blood culture showing Gram-positive cocci in clusters Continue IV antibiotics vanc and meropenem Status post 2 packed RBCs transfusion, 1 FFP Strict I&Os, urine studies pending Drips, dopamine, Levophed, vasopressin, phenylephrine, epinephrine, Bumex, Protonix Poor prognosis Case discussed with patient's son at the bedside, son understands poor prognosis and that the patient is critically ill Plan discussed with Dr. Hernandez Addendum Patient seen and examined, plan discussed with resident. Agree with above, she is comfort care appropriate not tolerating HD she is maxed out on 5 pressors and crrt unavailable here d/w son in detail bedside and explained HD cant be done d/w hospitalist--family unrealistic about prognosis critical care time 50min Plan discussed with: Patient Dietary Evaluation Review Recommendations by RD: Protein Supplementation Comments: 1) Initiate Pro-Stat @ 30 mL qd. Flush 30 mL free H2O AC/PC. 2) Initiate Nephro-Julieth @ 1 tb qd 3) If patient remains NPO > 7 days, consider EN/TPN to meet at least 75% estimated needs 4) If GI route is preferred, consider Nepro @ 40 mL/hr goal rate as tolerated. TF regimen (including Pro-Stat) will provide 1828 kcals, 93g Pro, and 775 free mL H2O per 24 hrs. TF rate will meet ~ 91% daily estimated energy needs and ~86% daily estimated protein needs 5) Advance to renal diet, pending [employer] approval 6) Follow-up with nephrology, oncology, cardiology, and pulmonology 7) Continue to monitor I&O, labs, and skin integrity Expected Outcomes/Goals: 1) patient to receive nutrition support within 7 days of NPO status 2) labs and wound to improve 3) diet to advance 4) follow-up in 2-3 days CC Plasma Assessment Blood Product Administration S: [id number] ARJUN PETERSON RESIDENT July 01, 2024 13:49 ADONAY HERNANDEZ MD July 01, 2024 15:25
--- NOTE | 2024-07-01 14:18 | DVHPN2 ---
Subjective Still intubated and sedated Septic on 5 vasopressors max doses Hb dropped to 5.9 Platelets 36 WBCs 30.6 Changes from previous H/P or p: Changes Objective Vitals Vital Signs Date Time Temp Pulse Resp B/P (MAP) Pulse Ox O2 Delivery O2 Flow Rate FiO2 07/01/24 13:55 102 26 107/54 (71) 96 30 07/01/24 12:21 98.7 98.7 07/01/24 12:00 Mechanical Ventilator+ Intake/Output Intake and Output 07/01/24 07:00 Intake Total 8053.461 ml Output Total 111 ml Balance 7942.461 ml Intake Oral 30 ml IV Total 8023.461 ml Output Urine Total 111 ml # Bowel Movements 1 General Appearance: Other (Intubated and sedated) Lungs: Other (Bilateral diffused crackles and rhonchi) Cardiovascular: Regular rate, Normal S1, Normal S2 Abdomen: Other (Distended) Extremities: Other (1+ edema bilaterally in the legs) Medications Current Medications Medications Dose Ordered Sig/Tavares Route Start Time Stop Time Status Last Admin Dose Admin Midazolam HCl 50 ml @ 1 mls/hr Q24H IV 06/26/24 22:15 06/29/24 17:38 3 MLS/HR Vasopressin 20 units/Sodium Chloride 100 ml @ 9 mls/hr Q11H7M IV 06/27/24 01:00 07/01/24 08:03 12 MLS/HR Vancomycin HCl 0 ml @ 0 mls/hr UD IV 06/27/24 03:30 Diagnostic Test (Pha) 1 strip IQ4HR 06/27/24 04:00 07/01/24 12:44 1 STRIP Insulin Human Regular IQ4HR SC 06/27/24 04:00 Dextrose 50 ml UD PRN IV 06/27/24 03:30 06/30/24 17:17 50 ML Ondansetron HCl 4 mg Q4HP PRN IV 06/27/24 03:30 Acetaminophen 650 mg Q6HP PRN PO 06/27/24 03:30 Nitroglycerin 0.4 mg Q5MINP PRN SL 06/27/24 03:30 Morphine Sulfate 2 mg Q30M PRN IV 06/27/24 03:30 Pantoprazole Sodium 50 ml @ 10 mls/hr Q5H IV 06/27/24 03:30 07/01/24 12:14 10 MLS/HR Meropenem 50 ml @ 17 mls/hr Q12HR IV 06/27/24 22:00 07/01/24 09:31 17 MLS/HR Calcium Acetate 2,001 mg TIDWM NG 06/28/24 14:00 07/01/24 09:30 2,001 MG Fentanyl Citrate 250 ml @ 2.5 mls/hr Q24H IV 06/28/24 10:15 06/28/24 15:43 2.5 MLS/HR Phenylephrine HCl 80 mg/Sodium Chloride 250 ml @ 7.5 mls/hr Q24H IV 06/29/24 12:15 07/01/24 10:21 33.75 MLS/HR Norepinephrine Bitartrate 32 mg/ Sodium Chloride 250 ml @ 0.938 mls/ hr Q24H IV 06/29/24 12:15 07/01/24 13:27 14.063 MLS/HR Epinephrine HCl 16 mg/Dextrose 250 ml @ 1.875 mls/ hr Q24H IV 06/29/24 12:15 06/30/24 15:52 9.375 MLS/HR Dopamine HCl/ Dextrose 250 ml @ 7.641 mls/ hr Q24H IV 06/29/24 15:45 07/01/24 11:13 30.563 MLS/HR Lactulose 30 ml Q6HR PO 06/30/24 05:18 Hydrocortisone Sodium Succinate 100 mg Q8HR IV 06/30/24 08:00 07/01/24 05:57 100 MG Bumetanide 25 mg/ Miscellaneous 100 ml @ 4 mls/hr Q24H IV 07/01/24 12:30 Laboratory Results Laboratory Tests 07/01/24 07:55 Chemistry Test 07/01/24 07:55 Albumin 1.9 g/dL (3.2-4.8) L Calcium Level 8.1 mg/dL (8.7-10.4) L Magnesium Level 1.7 mg/dL (1.6-2.6) Phosphorus Level 7.1 mg/dL (2.4-5.1) H Total Protein 3.4 g/dL (5.7-8.2) L LFT Test 07/01/24 07:55 Alanine Aminotransferase (ALT) 128 U/L (7-40) H Alkaline Phosphatase 229 U/L (46-116) H Aspartate Amino Transferase (AST) 789 U/L (13-40) H Total Bilirubin 5.2 mg/dL (0.2-1.0) H Urinalysis Test 06/27/24 00:20 Urine Color Dark-orange (Yellow) Urine Clarity Ex.turbid (Clear) Urine pH 5.0 (5.0-9.0) Urine Specific [place] 1.021 (1.001-1.035) Urine Protein 1+ (Negative) H Urine Ketones Negative (Negative) Urine Blood 1+ /uL (Negative) H Urine Nitrite Negative (Negative) Urine Bilirubin 1+ (Negative) H Urine Urobilinogen 2 mg/dL (Negative) H Urine Leukocyte Esterase Negative /uL (Negative) Urine RBC 21 /hpf (0 - 4) Urine Microscopic WBC 50 /HPF (0-5) H Urine Squamous Epithelial Cells None seen /hpf (<5) Urine Bacteria None seen /hpf (None Seen) Urine Hyaline Casts Many /lpf (0 - 2) Urine Mucus Few (None Seen) Urine Glucose Normal mg/dL (Normal) Blood Gas Results Test 07/01/24 07:34 07/01/24 09:35 Arterial Blood pH 7.067 (7.350-7.450) 7.141 (7.350-7.450) FiO2 % 30.0 30.0 Microbiology Microbiology Date/Time Source Procedure Growth Status 06/28/24 18:20 Nose MRSA Screen - Final Complete 06/27/24 00:05 Sputum Endotracheal Wash Gram Stain - Final Complete 06/27/24 00:05 Sputum Endotracheal Wash Respiratory Culture - Final Complete 06/26/24 21:30 Blood Blood Culture - Final Staphylococcus hominis Staphylococcus epidermidis Complete Assessment/Plan Assessment/Plan Acute severe sepsis with septic shock Acute hypoxic respiratory failure Acute severe metabolic acidosis Acute kidney injury Hypokalemia Anemia Lactic acidosis Hypocalcemia Bilateral lung masses 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 History of colon cancer and surgery 4 years ago, patient was supposed to follow up after surgery for chemo and radiation but she did not History of hypertension History of type 2 diabetes Severe coagulopathy Disseminated intravascular coagulation Plan Mechanical intubation Broad-spectrum antibiotics empirically meropenem and vancomycin Nephrology consult Pulmonary consult Give fresh frozen plasma Vasopressors as needed Protonix IV Bumex drip per Nephrology 06/28/24: IV fluids Vasopressors Sedation as needed IV antibiotics Fresh plasma Echo Cardiology consult Hem-Onc consult Protonix drip 06/29/2024: Septic shock: Continue vasopressors Continue IV antibiotics meropenem and vancomycin Coagulopathy Acute kidney injury possibly due to ATN Acute respiratory failure Diffuse metastatic disease unknown primary Multi organ failure Hyperkalemia, resolved Lactic acidosis Hypoalbuminemia Hyperphosphatemia Possible tumor lysis syndrome Dialysis is being done per Nephrology Albumin IV Poor prognosis The patient is still full code 06/30/2024: Severe sepsis with septic shock Severe lactic acidosis Acute kidney injury Liver shock Hyperbilirubinemia Multi organ failure Acute hypoxic respiratory failure DIC Thrombocytopenia Discussed with the son at the bedside, explained to him the very poor prognosis, he is still requesting for the patient to be full code Maximized vasopressors Very poor prognosis Full code IV fluids D5 with sodium bicarbonate and the 10 Dopamine Epinephrine Vasopressin IV antibiotics meropenem and vancomycin Protonix 07/01/24: Discussed with her son at the bedside Family still wants her full code Nephrology withheld HD due to severe sepsis and low BP Blood transfusion Hypoglycemic: D50 prn Hyponatremia MYKEL Elevated LFTs IV antibiotics Thrombocytopenia Very unstable Poor prognosis Plan discussed with: Patient My Orders Orders - SCOOBY MCADAMS MD Procedure Category Date Status Time Chest Portable XY 07/01/24 Resulted 04:00 Type And Screen BBK 07/01/24 In Process 09:06 Date of Service: July 01, 2024 Billing Provider: SCOOBY MCADAMS MD Common Visit Codes: NOT BILLABLE SCOOBY MCADAMS MD July 01, 2024 14:18
[2024-07-01] MEDS: ACCU-CHEK COMFORT CURVE STRIP VI SCH (15:52)
[2024-07-01] MEDS: BUMETANIDE INJECTION 25 MG in GIVE UN-DILUTED 0 ML IV SCH (17:40)
[2024-07-01] MEDS: VANCOMYCIN 500mg/100mL 100 ML IV ONE (18:15)
--- NOTE | 2024-07-01 22:44 | DVHPN2 ---
Progress Note - Dictate Date Seen: July 01, 2024 Medical Necessity Reason Pt with a Central, PICC or Fol: Yes The following are medically ne: Central Line, Hendrix Catheter Reason for hendrix catheter: Strict I&O Subjective Patient seen and examined at bedside. intubated on mechanical ventilator. Overnight events reviewed. vital signs Vital Sign Date Time Temp Pulse Resp B/P (MAP) Pulse Ox O2 Delivery O2 Flow Rate FiO2 07/01/24 22:09 101 26 86/51 (63) 30 07/01/24 20:00 93 Mechanical Ventilator+ 07/01/24 18:55 98.5 98.5 Total Intake and Output 06/30/24 06/30/24 07/01/24 15:00 23:00 07:00 Intake Total 2534.008 ml 2809.445 ml 2710.008 ml Output Total 100 ml 11 ml Balance 2534.008 ml 2709.445 ml 2699.008 ml medications Current Medications Medications Dose Ordered Sig/Tavares Route Start Time Stop Time Status Last Admin Dose Admin Midazolam HCl 50 ml @ 1 mls/hr Q24H IV 06/26/24 22:15 06/29/24 17:38 3 MLS/HR Vasopressin 20 units/Sodium Chloride 100 ml @ 9 mls/hr Q11H7M IV 06/27/24 01:00 07/01/24 16:30 12 MLS/HR Vancomycin HCl 0 ml @ 0 mls/hr UD IV 06/27/24 03:30 Insulin Human Regular IQ4HR SC 06/27/24 04:00 Dextrose 50 ml UD PRN IV 06/27/24 03:30 07/01/24 15:23 50 ML Ondansetron HCl 4 mg Q4HP PRN IV 06/27/24 03:30 Acetaminophen 650 mg Q6HP PRN PO 06/27/24 03:30 Nitroglycerin 0.4 mg Q5MINP PRN SL 06/27/24 03:30 Morphine Sulfate 2 mg Q30M PRN IV 06/27/24 03:30 Pantoprazole Sodium 50 ml @ 10 mls/hr Q5H IV 06/27/24 03:30 07/01/24 21:45 10 MLS/HR Meropenem 50 ml @ 17 mls/hr Q12HR IV 06/27/24 22:00 07/01/24 22:02 17 MLS/HR Calcium Acetate 2,001 mg TIDWM NG 06/28/24 14:00 07/01/24 09:30 2,001 MG Fentanyl Citrate 250 ml @ 2.5 mls/hr Q24H IV 06/28/24 10:15 06/28/24 15:43 2.5 MLS/HR Phenylephrine HCl 80 mg/Sodium Chloride 250 ml @ 7.5 mls/hr Q24H IV 06/29/24 12:15 07/01/24 17:53 33.75 MLS/HR Norepinephrine Bitartrate 32 mg/ Sodium Chloride 250 ml @ 0.938 mls/ hr Q24H IV 06/29/24 12:15 07/01/24 13:27 14.063 MLS/HR Epinephrine HCl 16 mg/Dextrose 250 ml @ 1.875 mls/ hr Q24H IV 06/29/24 12:15 07/01/24 18:51 9.375 MLS/HR Dopamine HCl/ Dextrose 250 ml @ 7.641 mls/ hr Q24H IV 06/29/24 15:45 07/01/24 17:32 30.563 MLS/HR Lactulose 30 ml Q6HR PO 06/30/24 05:18 Hydrocortisone Sodium Succinate 100 mg Q8HR IV 06/30/24 08:00 07/01/24 22:26 100 MG Bumetanide 25 mg/ Miscellaneous 100 ml @ 4 mls/hr Q24H IV 07/01/24 12:30 07/01/24 17:40 4 MLS/HR Diagnostic Test (Pha) 1 strip Q2HR 07/01/24 16:00 07/01/24 22:00 1 STRIP objective Gen.: Patient lying in bed in medical ICU. Intubated on mechanical ventilator. Head: Normocephalic, atraumatic. Eyes: PERRLA. Ears: Normal external anatomy. Throat: Endotracheal tube and orogastric tube in place. Neck: Supple, trachea midline. Chest: Transmitted breath sounds bilaterally. Decreased air entry bilaterally. No wheezing. Bibasilar crackles. Cardiovascular: Positive S1, positive S2. Regular rate and rhythm. Abdomen: Positive bowel sounds in all 4 quadrants. Soft, nontender, nondistended. : Hendrix in place. Normal external genitalia. Rectal: Deferred. Skin: Warm, dry. Intact. Extremities: 2+ radial pulses bilaterally. No lower extremity edema. Neuro: Off sedation laboratory and microbiology Laboratory Tests 07/01/24 07:55 Test 07/01/24 16:15 Range/Units Serum Glucose 247 H 74-106 mg/dL Assessment/Plan Impression: Acute hypoxic respiratory failure On mechanical ventilator Septic shock Multiorgan failure Community-acquired pneumonia Acute renal failure ? GI hemorrhage Metastatic cancer Coagulopathy Events: Remains on vent support On AC mode; RR 18, VT 500, PEEP 5, FiO2 30% ABG reviewed, notable for acidemia d/t metabolic acidosis Chest x-ray reviewed, notable for pulmonary congestion and edema On bicarb drip Maxed on pressors Continues on multiple pressors for hemodynamic support On epinephrine, norepinephrine, dopamine, Gopi-Synephrine and vasopressin 0.04 units/min Titrate to keep MAP above 65 mmHg/SBP above 90 mmHg. Blood pressures continues to be low Albumin ordered Off sedation Continue antibiotics. IV steroids Monitor hemoglobin Protonix for GI prophylaxis Continue diuresis w/ Bumex drip - no urine output Monitor renal function Monitor electrolytes. Supplement as necessary. Monitor ins and outs. Nephrology recs appreciated. Poor prognosis due to multiple co-morbidities. High likelihood of demise Labs and imaging reviewed. Rest of plan as noted below. Plan: s/p intubation on mechanical ventilator. On AC mode; RR 18, VT 500, PEEP 5, FiO2 30% Titrate FIO2 to keep O2 saturation above 90%. VAP bundle. Daily ABG and CXR while intubated Off sedation Continue antibiotics. F/u cultures. Monitor hemoglobin Transfuse if less than 7.0 g/dL. On multiple pressors for hemodynamic support Titrate to keep mean arterial pressure greater than 65 mmHg. IV fluids with sodium bicarb drip Diurese w/ Bumex drip Monitor renal function Monitor electrolytes. Supplement as necessary. Monitor ins and outs. Maintain euvolemia. GI prophylaxis. DVT prophylaxis. Prognosis: Poor given patient's multiple co-morbidities. Condition: Critical Rest of plan per hospitalist and other consultants. A total of 35 minutes of critical care time was spent reviewing the patient record, examining the patient, making a diagnostic and therapeutic plan, discussing this plan with the medical personnel, following up on diagnostic studies and following the patient for clinical stability excluding any and all procedures. At least 50% of this time was spent in direct, [id number] contact. Thank you, Dr. Heredia, for allowing me to participate in this patient's care. Further recommendations will depend on the patient's clinical course. Please do not hesitate to contact me if you have any questions or concerns. This medical document was created using an electronic medical record system with [employer] dictation system. Although these documentations are being carefully reviewed, there may still be some phonetic and typographical changes. The errors are purely typographical, due to imperfection on the software program, and do not reflect any compromise in the patient's medical care. Dietary Evaluation Review Recommendations by RD: Protein Supplementation Comments: 1) Initiate Pro-Stat @ 30 mL qd. Flush 30 mL free H2O AC/PC. 2) Initiate Nephro-Julieth @ 1 tb qd 3) If patient remains NPO > 7 days, consider EN/TPN to meet at least 75% estimated needs 4) If GI route is preferred, consider Nepro @ 40 mL/hr goal rate as tolerated. TF regimen (including Pro-Stat) will provide 1828 kcals, 93g Pro, and 775 free mL H2O per 24 hrs. TF rate will meet ~ 91% daily estimated energy needs and ~86% daily estimated protein needs 5) Advance to renal diet, pending AEROSPACE TECHNICIAN approval 6) Follow-up with nephrology, oncology, cardiology, and pulmonology 7) Continue to monitor I&O, labs, and skin integrity Expected Outcomes/Goals: 1) patient to receive nutrition support within 7 days of NPO status 2) labs and wound to improve 3) diet to advance 4) follow-up in 2-3 days Plan discussed with: Other (KODY Steen) Critical Care Time(min): 35 CC Plasma Assessment Blood Product Administration S: [id number] MIKAL CALVERT MD July 01, 2024 22:44
[2024-07-02] VITALS (107 sets, daily range): BP systolic 48–123; BP diastolic 27–69; PULSE 58–107; RESP 26–28; TEMP 90.1–99.1; O2SAT 38–95
[2024-07-02 05:30] LABS: Mean Corpuscular Hgb Conc. 31.2 g/dL (32.0-36.0)
[2024-07-02 05:32] LABS: Hematocrit 31.2 % (36.0-46.0); Hemoglobin 9.7 g/dL (12.2-16.2); Mean Corpuscular Hemoglobin 27.5 pg (28.0-32.0); Red Blood Cells 3.54 10^6/uL (4.0-5.20); Red Cell Distribution Width 19.9 % (11.8-14.3)
[2024-07-02 05:50] LABS: Basophils % (manual) 0 (0.0-2.0); Blast Cells 0; Eosinophils % (manual) 0 (0-7); Platelet Count (auto) 16 10^3/uL (140-450); Promyelocytes % 0; Reactive Lymphocytes 0; White Blood Cell 33.8 10^3/uL (4.4-10.8)
[2024-07-02 07:16] LABS: Band Neutrophils % (manual) 4; Lymphocytes % (manual) 1 (10.0-50.0); Metamyelocytes % 3; Monocytes % (manual) 7 (0-12); Myelocytes % 2; Platelet Estimate Markedly Decreased
[2024-07-02 08:00] LABS: Base Excess -17.4 mmol/L (-2.0-3.0)
[2024-07-02 09:30] LABS: Anion Gap 24 (5-15); BUN/Creatinine Ratio 12.5 (10.0-20.0); Glucose 77 mg/dL (74-106)
[2024-07-02 09:44] LABS: Alanine Aminotransferase 141 U/L (7-40); Albumin 1.8 g/dL (3.2-4.8); Alkaline Phosphatase 281 U/L (46-116); Aspartate Aminotransferase 739 U/L (13-40); Bilirubin, Total 8.7 mg/dL (0.2-1.0); Blood Urea Nitrogen 25 mg/dL (9-23); Calcium 7.8 mg/dL (8.7-10.4); Carbon Dioxide 12 mmol/L (20-31); Chloride 90 mmol/L (98-107); Potassium 5.1 mmol/L (3.5-5.1); Sodium 126 mmol/L (136-145); Total Protein 3.5 g/dL (5.7-8.2)
[2024-07-02 11:45] LABS: Base Excess -18.4 mmol/L (-2.0-3.0)
[2024-07-02] MEDS ORDERED: SODIUM BICARB 8.4% 50Meq/50ml SYR Vial IV ONE (12:15)
--- NOTE | 2024-07-02 12:27 | DVH ---
INDICATION: intubated TECHNIQUE: Frontal view of the chest. COMPARISON: XY CHEST PORTABLE on DOS: 07/01/24, XY CHEST PORTABLE on DOS: 06/30/24, XY CHEST PORTABLE o n DOS: 06/29/24, XY CHEST PORTABLE on DOS: 06/29/24, XY CHEST XRAY 1 VIEW on DOS: 06/28/24, XY CHEST PORT ABLE on DOS: 07/01/24 FINDINGS: LUNGS AND PLEURAL SPACES: Pulmonary congestion and edema. Pneumonia cannot be excluded. No pneumot horax. HEART: Unremarkable. No cardiomegaly. MEDIASTINUM: Unremarkable. Normal mediastinal contour. BONES/JOINTS: Unremarkable. No acute fracture. TUBES, LINES AND DEVICES: Right internal jugular central venous catheter tip in the superior vena c jason. The endotracheal tube (ETT) is in satisfactory position. Enteric tube tip cannot be seen but i s below the diaphragm. IMPRESSION: Pulmonary congestion and edema. Pneumonia cannot be excluded.
--- NOTE | 2024-07-02 13:00 | DVHPNRES ---
Progress Note Date Seen: July 02, 2024 Resident Creating Document: ARJUN PETERSON RESIDENT Medical Necessity Reason Pt with a Central, PICC or Fol: Yes The following are medically ne: Central Line, Hendrix Catheter Reason for hendrix catheter: Strict I&O Subjective Review of Systems This is a 73-year-old female with PMHx abdominal carcinoma status post surgery at [facility], refused chemotherapy-details unknown who was BIBA due to the chief complaint of generalized weakness and inability to eat or drink. Per patient's family who she lives with, patient experienced a fall 5 weeks back and hurt her right leg, he has been bed-bound since then. She did not follow up with the visits physician or go to the ER. Fallen even, patient has been experiencing generalized weakness, her appetite has been low and she has not been eating or drinking. Over the past week patient has been experiencing alternating diarrhea and constipation. EMS was called last week by the family but the patient declined receive any medical attention. 06/26-family reportedly called EMS again and EMS reported as her blood pressure is too low, family took the patient forcefully to the ER. Daughter also reports patient has been making less urine over the past days, urinating only once or twice daily. On arrival to the ER, patient was hypotensive 89/54 mmHg, saturating 88, 97% with non-rebreather mask. Patient was Intubated immediately. H&H 6.09/10, transaminitis, potassium elevated at 7, lactic acidosis. Past medical/surgical history: Unknown source of carcinoma probably abdominal per family-details unknown status post surgery, refused chemotherapy Home medications: Losartan, atorvastatin, ferrous sulfate, hydroxyzine Social history: Lives with family, denies smoking/drinking/drug use 06/27 - Patient seen and examined in the ER. Two packed RBCs transfused by the primary, discontinued half NS, started D5 with bicarb. Bumex drip started, Lokelma started. Dialysis ordered 06/28 - patient seen and examined in the ER. Overnight, underwent hemodialysis, nothing was taken out. Potassium decreased to 5 and 4. 07/01 - seen and examined in the ICU. Patient is oliguric, lactic acidosis, on 5 pressors. Discontinued IV fluids, started Bumex 1 milligram/hour Over the weekend, patient could not tolerate hemodialysis on 06/29. 07/02 - patient is seen and examined in the ICU. Urine output 100 cc the past 24 hours. ABG shows pH 7.15, bicarb 9, 3 ampules of bicarb IV ordered. Platelets down trending, now 16. Creatinine slightly up trending Objective vital signs Vital Sign Date Time Temp Pulse Resp B/P (MAP) Pulse Ox O2 Delivery O2 Flow Rate FiO2 07/02/24 12:28 66/48 07/02/24 11:50 92 28 94 40 07/02/24 08:00 Mechanical Ventilator+ 07/02/24 03:00 97.9 97.9 Total Intake and Output 07/01/24 07/01/24 07/02/24 15:00 23:00 07:00 Intake Total 2548.008 ml 1602.008 ml 856.757 ml Output Total 50 ml 60 ml Balance 2548.008 ml 1552.008 ml 796.757 ml medications Current Medications Medications Dose Ordered Sig/Tavares Route Start Time Stop Time Status Last Admin Dose Admin Midazolam HCl 50 ml @ 1 mls/hr Q24H IV 06/26/24 22:15 06/29/24 17:38 3 MLS/HR Vasopressin 20 units/Sodium Chloride 100 ml @ 9 mls/hr Q11H7M IV 06/27/24 01:00 07/02/24 09:06 12 MLS/HR Vancomycin HCl 0 ml @ 0 mls/hr UD IV 06/27/24 03:30 Insulin Human Regular IQ4HR SC 06/27/24 04:00 Dextrose 50 ml UD PRN IV 06/27/24 03:30 07/02/24 10:37 50 ML Ondansetron HCl 4 mg Q4HP PRN IV 06/27/24 03:30 Acetaminophen 650 mg Q6HP PRN PO 06/27/24 03:30 Nitroglycerin 0.4 mg Q5MINP PRN SL 06/27/24 03:30 Morphine Sulfate 2 mg Q30M PRN IV 06/27/24 03:30 Pantoprazole Sodium 50 ml @ 10 mls/hr Q5H IV 06/27/24 03:30 07/02/24 12:28 10 MLS/HR Meropenem 50 ml @ 17 mls/hr Q12HR IV 06/27/24 22:00 07/02/24 09:06 17 MLS/HR Calcium Acetate 2,001 mg TIDWM NG 06/28/24 14:00 07/01/24 09:30 2,001 MG Fentanyl Citrate 250 ml @ 2.5 mls/hr Q24H IV 06/28/24 10:15 07/02/24 01:49 2.5 MLS/HR Phenylephrine HCl 80 mg/Sodium Chloride 250 ml @ 7.5 mls/hr Q24H IV 06/29/24 12:15 07/02/24 08:48 33.75 MLS/HR Norepinephrine Bitartrate 32 mg/ Sodium Chloride 250 ml @ 0.938 mls/ hr Q24H IV 06/29/24 12:15 07/02/24 05:57 14.063 MLS/HR Epinephrine HCl 16 mg/Dextrose 250 ml @ 1.875 mls/ hr Q24H IV 06/29/24 12:15 07/01/24 18:51 9.375 MLS/HR Dopamine HCl/ Dextrose 250 ml @ 7.641 mls/ hr Q24H IV 06/29/24 15:45 07/02/24 12:28 30.563 MLS/HR Lactulose 30 ml Q6HR PO 06/30/24 05:18 Hydrocortisone Sodium Succinate 100 mg Q8HR IV 06/30/24 08:00 07/02/24 06:28 100 MG Bumetanide 25 mg/ Miscellaneous 100 ml @ 4 mls/hr Q24H IV 07/01/24 12:30 07/01/24 17:40 4 MLS/HR Diagnostic Test (Pha) 1 strip Q2HR 07/01/24 16:00 07/02/24 12:01 1 STRIP Examination Patient lying in the bed in ICU intubated and mechanically ventilated, RASS -4 General: Well-built, afebrile, palor, mucosae are dry Cardiovascular: Regular S1 and S2. Systolic ejection murmur heard at the left sternal border , no gallops or rubs. No JVD elevation. Bilateral 3+ pitting edema Respiratory: Patient is intubated and mechanically ventilated at 40% FiO2 Abdomen: Soft, distended, hypoactive bowel sounds, no rebound tenderness, no organomegaly, no masses Genitourinary: Deferred MSK/skin: Bruises seen on bilateral lower extremities. Bilateral lower extremities have fluid-filled vesicles, draining serous discharge laboratory and microbiology Laboratory Tests 07/02/24 03:00 Test 07/02/24 03:00 Range/Units Serum Glucose 77 74-106 mg/dL Microbiology Date/Time Source Procedure Growth Status 06/28/24 18:20 Nose MRSA Screen - Final Complete 06/27/24 00:05 Sputum Endotracheal Wash Gram Stain - Final Complete 06/27/24 00:05 Sputum Endotracheal Wash Respiratory Culture - Final Complete 06/26/24 21:30 Blood Blood Culture - Final Staphylococcus hominis Staphylococcus epidermidis Complete Labs and/or images reviewed: Labs reviewed by me, Image(s) reviewed by me Problem List/Assessment/Plan Problem List/Assessment/Plan Acute kidney injury, likely tumor lysis syndrome and ATN Diffuse metastatic disease, primary source unknown Septic shock requiring pressor support Hypovolemic shock Acute blood loss anemia requiring transfusion Thrombocytopenia Multiorgan failure Hyperkalemic crisis Lactic acidosis type B Anion gap metabolic acidosis Hypoglycemia Transaminitis, cholestatic pattern ? Cirrhosis Hypoalbuminemia Hyperammonemia Hyperuricemia Hyperphosphatemia Potassium 7 - > 5.4 -> 4 Phosphorus 9.9 - > 7.8 - > 7 Corrected Calcium 9.2 - >8 Uric acid 14.9 -> 11.6 -> 9 Abdominal ultrasound showing hepatic cirrhosis with heterogeneous mass seen throughout the liver, neoplasm can not be excluded. CT chest/abdomen/pelvis showing many soft tissue mass throughout chest/abdomen/pelvis along with diffuse lymphadenopathy. Plan: 3 ampules of bicarb IV pushes ordered Patient could not tolerate hemodialysis 06/29. The only hemodialysis session was 06/28. Discontinued IV fluids, started IV Bumex 1 mg per hour drip 07/01 Rasburicase is not being given as it is not available here Drips, dopamine, Levophed, vasopressin, phenylephrine, epinephrine, Bumex, Protonix Poor prognosis Case discussed with patient's son at the bedside, son understands poor prognosis and that the patient is critically ill Plan discussed with Dr. Hernandez Addendum Patient seen and examined, plan discussed with resident. Agree with above, dnr now comfort care appropriate--i have informed son on 07/01 as pt not tolerating HD given hypotension and on 5 pressors maxed out and her prognosis is grave d/w today Plan discussed with: Son My Orders My Orders Orders - ARJUN PETERSON RESIDENT Procedure Category Date Status Time Glucose Blood PHA 07/01/24 In Process (Accu-Chek Comfort 16:00 Dietary Evaluation Review Recommendations by RD: Protein Supplementation Comments: 1) Initiate Pro-Stat @ 30 mL qd. Flush 30 mL free H2O AC/PC. 2) Initiate Nephro-Julieth @ 1 tb qd 3) If patient remains NPO > 7 days, consider EN/TPN to meet at least 75% estimated needs 4) If GI route is preferred, consider Nepro @ 40 mL/hr goal rate as tolerated. TF regimen (including Pro-Stat) will provide 1828 kcals, 93g Pro, and 775 free mL H2O per 24 hrs. TF rate will meet ~ 91% daily estimated energy needs and ~86% daily estimated protein needs 5) Advance to renal diet, pending BUSINESS SERVICES ASSOCIATE approval 6) Follow-up with nephrology, oncology, cardiology, and pulmonology 7) Continue to monitor I&O, labs, and skin integrity Expected Outcomes/Goals: 1) patient to receive nutrition support within 7 days of NPO status 2) labs and wound to improve 3) diet to advance 4) follow-up in 2-3 days CC Plasma Assessment Blood Product Administration S: [id number] ARJUN PETERSON RESIDENT July 02, 2024 13:00 ADONAY HERNANDEZ MD July 02, 2024 13:42
--- NOTE | 2024-07-02 14:29 | DVHPN2 ---
Subjective Still intubated and sedated Septic on 5 vasopressors max doses Sedated with fentanyl Platelets dropped to 16 White count 33.8 Hemoglobin 9.7 Changes from previous H/P or p: Changes Objective Vitals Vital Signs Date Time Temp Pulse Resp B/P (MAP) Pulse Ox O2 Delivery O2 Flow Rate FiO2 07/02/24 13:12 94 28 77/51 (60) 93 40 07/02/24 10:00 Mechanical Ventilator+ 07/02/24 03:00 97.9 97.9 Intake/Output Intake and Output 07/02/24 07:00 Intake Total 5006.773 ml Output Total 110 ml Balance 4896.773 ml Intake Oral 0 ml IV Total 3806.773 ml Blood Product 600 ml Other 600 ml Output Urine Total 110 ml General Appearance: Other (Intubated and sedated) Lungs: Other (Bilateral diffused crackles and rhonchi) Cardiovascular: Regular rate, Normal S1, Normal S2 Abdomen: Other (Distended) Extremities: Other (1+ edema bilaterally in the legs) Medications Current Medications Medications Dose Ordered Sig/Tavares Route Start Time Stop Time Status Last Admin Dose Admin Midazolam HCl 50 ml @ 1 mls/hr Q24H IV 06/26/24 22:15 06/29/24 17:38 3 MLS/HR Vasopressin 20 units/Sodium Chloride 100 ml @ 9 mls/hr Q11H7M IV 06/27/24 01:00 07/02/24 09:06 12 MLS/HR Vancomycin HCl 0 ml @ 0 mls/hr UD IV 06/27/24 03:30 Insulin Human Regular IQ4HR SC 06/27/24 04:00 Dextrose 50 ml UD PRN IV 06/27/24 03:30 07/02/24 10:37 50 ML Ondansetron HCl 4 mg Q4HP PRN IV 06/27/24 03:30 Acetaminophen 650 mg Q6HP PRN PO 06/27/24 03:30 Nitroglycerin 0.4 mg Q5MINP PRN SL 06/27/24 03:30 Morphine Sulfate 2 mg Q30M PRN IV 06/27/24 03:30 Pantoprazole Sodium 50 ml @ 10 mls/hr Q5H IV 06/27/24 03:30 07/02/24 12:28 10 MLS/HR Meropenem 50 ml @ 17 mls/hr Q12HR IV 06/27/24 22:00 07/02/24 09:06 17 MLS/HR Calcium Acetate 2,001 mg TIDWM NG 06/28/24 14:00 07/01/24 09:30 2,001 MG Fentanyl Citrate 250 ml @ 2.5 mls/hr Q24H IV 06/28/24 10:15 07/02/24 01:49 2.5 MLS/HR Phenylephrine HCl 80 mg/Sodium Chloride 250 ml @ 7.5 mls/hr Q24H IV 06/29/24 12:15 07/02/24 08:48 33.75 MLS/HR Norepinephrine Bitartrate 32 mg/ Sodium Chloride 250 ml @ 0.938 mls/ hr Q24H IV 06/29/24 12:15 07/02/24 05:57 14.063 MLS/HR Epinephrine HCl 16 mg/Dextrose 250 ml @ 1.875 mls/ hr Q24H IV 06/29/24 12:15 07/01/24 18:51 9.375 MLS/HR Dopamine HCl/ Dextrose 250 ml @ 7.641 mls/ hr Q24H IV 06/29/24 15:45 07/02/24 12:28 30.563 MLS/HR Lactulose 30 ml Q6HR PO 06/30/24 05:18 Hydrocortisone Sodium Succinate 100 mg Q8HR IV 06/30/24 08:00 07/02/24 06:28 100 MG Bumetanide 25 mg/ Miscellaneous 100 ml @ 4 mls/hr Q24H IV 07/01/24 12:30 07/01/24 17:40 4 MLS/HR Diagnostic Test (Pha) 1 strip Q2HR 07/01/24 16:00 07/02/24 12:01 1 STRIP Laboratory Results Laboratory Tests 07/02/24 03:00 Chemistry Test 07/02/24 03:00 Albumin 1.8 g/dL (3.2-4.8) L Calcium Level 7.8 mg/dL (8.7-10.4) L Total Protein 3.5 g/dL (5.7-8.2) L LFT Test 07/02/24 03:00 Alanine Aminotransferase (ALT) 141 U/L (7-40) H Alkaline Phosphatase 281 U/L (46-116) H Aspartate Amino Transferase (AST) 739 U/L (13-40) H Total Bilirubin 8.7 mg/dL (0.2-1.0) H Urinalysis Test 06/27/24 00:20 Urine Color Dark-orange (Yellow) Urine Clarity Ex.turbid (Clear) Urine pH 5.0 (5.0-9.0) Urine Specific [place] 1.021 (1.001-1.035) Urine Protein 1+ (Negative) H Urine Ketones Negative (Negative) Urine Blood 1+ /uL (Negative) H Urine Nitrite Negative (Negative) Urine Bilirubin 1+ (Negative) H Urine Urobilinogen 2 mg/dL (Negative) H Urine Leukocyte Esterase Negative /uL (Negative) Urine RBC 21 /hpf (0 - 4) Urine Microscopic WBC 50 /HPF (0-5) H Urine Squamous Epithelial Cells None seen /hpf (<5) Urine Bacteria None seen /hpf (None Seen) Urine Hyaline Casts Many /lpf (0 - 2) Urine Mucus Few (None Seen) Urine Glucose Normal mg/dL (Normal) Blood Gas Results Test 07/01/24 15:02 07/02/24 07:48 07/02/24 11:21 Arterial Blood pH 7.232 (7.350-7.450) 7.159 (7.350-7.450) 7.162 (7.350-7.450) FiO2 % 40.0 40.0 40.0 Microbiology Microbiology Date/Time Source Procedure Growth Status 06/28/24 18:20 Nose MRSA Screen - Final Complete 06/27/24 00:05 Sputum Endotracheal Wash Gram Stain - Final Complete 06/27/24 00:05 Sputum Endotracheal Wash Respiratory Culture - Final Complete 06/26/24 21:30 Blood Blood Culture - Final Staphylococcus hominis Staphylococcus epidermidis Complete Assessment/Plan Assessment/Plan Acute severe sepsis with septic shock Acute hypoxic respiratory failure Acute severe metabolic acidosis Acute kidney injury Hypokalemia Anemia Lactic acidosis Hypocalcemia Bilateral lung masses 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 History of colon cancer and surgery 4 years ago, patient was supposed to follow up after surgery for chemo and radiation but she did not History of hypertension History of type 2 diabetes Severe coagulopathy Disseminated intravascular coagulation Plan Mechanical intubation Broad-spectrum antibiotics empirically meropenem and vancomycin Nephrology consult Pulmonary consult Give fresh frozen plasma Vasopressors as needed Protonix IV Bumex drip per Nephrology 06/28/24: IV fluids Vasopressors Sedation as needed IV antibiotics Fresh plasma Echo Cardiology consult Hem-Onc consult Protonix drip 06/29/2024: Septic shock: Continue vasopressors Continue IV antibiotics meropenem and vancomycin Coagulopathy Acute kidney injury possibly due to ATN Acute respiratory failure Diffuse metastatic disease unknown primary Multi organ failure Hyperkalemia, resolved Lactic acidosis Hypoalbuminemia Hyperphosphatemia Possible tumor lysis syndrome Dialysis is being done per Nephrology Albumin IV Poor prognosis The patient is still full code 06/30/2024: Severe sepsis with septic shock Severe lactic acidosis Acute kidney injury Liver shock Hyperbilirubinemia Multi organ failure Acute hypoxic respiratory failure DIC Thrombocytopenia Discussed with the son at the bedside, explained to him the very poor prognosis, he is still requesting for the patient to be full code Maximized vasopressors Very poor prognosis Full code IV fluids D5 with sodium bicarbonate and the 10 Dopamine Epinephrine Vasopressin IV antibiotics meropenem and vancomycin Protonix 07/01/24: Discussed with her son at the bedside Family still wants her full code Nephrology withheld HD due to severe sepsis and low BP Blood transfusion Hypoglycemic: D50 prn Hyponatremia MYKEL Elevated LFTs IV antibiotics Thrombocytopenia Very unstable Poor prognosis 07/02/2024: Continue current management so far DNR now Poor prognosis Vasopressors Mechanical ventilation Plan discussed with: Son, Other My Orders Orders - SCOOBY MCADAMS MD Procedure Category Date Status Time Chest Portable XY 07/02/24 Resulted 09:02 Date of Service: July 02, 2024 Billing Provider: SCOOBY MCADAMS MD Common Visit Codes: NOT BILLABLE SCOOBY MCADAMS MD July 02, 2024 14:29
[2024-07-02] MEDS: SODIUM BICARB 8.4% 50Meq/50ml SYR INJ IV ONE (14:53)
[2024-07-02] MEDS: CEFEPIME 2GM/50ML NS 50 ML IV SCH (16:42)
--- NOTE | 2024-07-02 19:43 | DVHPN2 ---
Progress Note - Dictate Date Seen: July 02, 2024 Medical Necessity Reason Pt with a Central, PICC or Fol: Yes The following are medically ne: Central Line, Hendrix Catheter Reason for hendrix catheter: Strict I&O Subjective Patient seen and examined at bedside. intubated on mechanical ventilator. Overnight events reviewed. vital signs Vital Sign Date Time Temp Pulse Resp B/P (MAP) Pulse Ox O2 Delivery O2 Flow Rate FiO2 07/02/24 18:50 56/37 07/02/24 18:45 72 28 07/02/24 18:00 40 07/02/24 18:00 Mechanical Ventilator+ 07/02/24 17:15 95.2 203.4 07/02/24 16:02 92 Total Intake and Output 07/01/24 07/01/24 07/02/24 15:00 23:00 07:00 Intake Total 2548.008 ml 1602.008 ml 973.008 ml Output Total 50 ml 60 ml Balance 2548.008 ml 1552.008 ml 913.008 ml medications Current Medications Medications Dose Ordered Sig/Tavares Route Start Time Stop Time Status Last Admin Dose Admin Midazolam HCl 50 ml @ 1 mls/hr Q24H IV 06/26/24 22:15 06/29/24 17:38 3 MLS/HR Vasopressin 20 units/Sodium Chloride 100 ml @ 9 mls/hr Q11H7M IV 06/27/24 01:00 07/02/24 18:50 12 MLS/HR Vancomycin HCl 0 ml @ 0 mls/hr UD IV 06/27/24 03:30 Insulin Human Regular IQ4HR SC 06/27/24 04:00 Dextrose 50 ml UD PRN IV 06/27/24 03:30 07/02/24 15:13 50 ML Ondansetron HCl 4 mg Q4HP PRN IV 06/27/24 03:30 Acetaminophen 650 mg Q6HP PRN PO 06/27/24 03:30 Nitroglycerin 0.4 mg Q5MINP PRN SL 06/27/24 03:30 Morphine Sulfate 2 mg Q30M PRN IV 06/27/24 03:30 Pantoprazole Sodium 50 ml @ 10 mls/hr Q5H IV 06/27/24 03:30 07/02/24 18:50 10 MLS/HR Calcium Acetate 2,001 mg TIDWM NG 06/28/24 14:00 07/01/24 09:30 2,001 MG Fentanyl Citrate 250 ml @ 2.5 mls/hr Q24H IV 06/28/24 10:15 07/02/24 01:49 2.5 MLS/HR Phenylephrine HCl 80 mg/Sodium Chloride 250 ml @ 7.5 mls/hr Q24H IV 06/29/24 12:15 07/02/24 16:24 33.75 MLS/HR Norepinephrine Bitartrate 32 mg/ Sodium Chloride 250 ml @ 0.938 mls/ hr Q24H IV 06/29/24 12:15 07/02/24 05:57 14.063 MLS/HR Epinephrine HCl 16 mg/Dextrose 250 ml @ 1.875 mls/ hr Q24H IV 06/29/24 12:15 07/01/24 18:51 9.375 MLS/HR Dopamine HCl/ Dextrose 250 ml @ 7.641 mls/ hr Q24H IV 06/29/24 15:45 07/02/24 18:50 30.563 MLS/HR Lactulose 30 ml Q6HR PO 06/30/24 05:18 Hydrocortisone Sodium Succinate 100 mg Q8HR IV 06/30/24 08:00 07/02/24 15:13 100 MG Bumetanide 25 mg/ Miscellaneous 100 ml @ 4 mls/hr Q24H IV 07/01/24 12:30 07/02/24 13:59 4 MLS/HR Diagnostic Test (Pha) 1 strip Q2HR 07/01/24 16:00 07/02/24 18:34 1 STRIP Cefepime HCl 50 ml @ 12.5 mls/hr Q12H IV 07/02/24 16:00 07/02/24 16:42 12.5 MLS/HR objective Gen.: Patient lying in bed in medical ICU. Intubated on mechanical ventilator. Head: Normocephalic, atraumatic. Eyes: PERRLA. Ears: Normal external anatomy. Throat: Endotracheal tube and orogastric tube in place. Neck: Supple, trachea midline. Chest: Transmitted breath sounds bilaterally. Decreased air entry bilaterally. No wheezing. Bibasilar crackles. Cardiovascular: Positive S1, positive S2. Regular rate and rhythm. Abdomen: Positive bowel sounds in all 4 quadrants. Soft, nontender, nondistended. : Hendrix in place. Normal external genitalia. Rectal: Deferred. Skin: Warm, dry. Intact. Extremities: 2+ radial pulses bilaterally. No lower extremity edema. Neuro: Off sedation laboratory and microbiology Laboratory Tests 07/02/24 03:00 Test 07/02/24 03:00 Range/Units Serum Glucose 77 74-106 mg/dL Assessment/Plan Impression: Acute hypoxic respiratory failure On mechanical ventilator Septic shock Multiorgan failure Community-acquired pneumonia Acute renal failure ? GI hemorrhage Metastatic cancer Coagulopathy Thrombocytopenia, platelets. Anemia Multi-organ failure Events: Remains on vent support On AC mode; RR 18, VT 500, PEEP 5, FiO2 30% CXR image and report reviewed. Pulmonary edema. Cannot r/o underlying pneumonia. ABG reviewed, notable for acidemia d/t metabolic acidosis Increased RR to 28. Chest x-ray reviewed, notable for pulmonary congestion and edema Off bicarb drip. Receive IV bicarbonate pushes. Maxed on pressors Continues on multiple pressors for hemodynamic support On epinephrine, norepinephrine, dopamine, Gopi-Synephrine and vasopressin 0.04 units/min Titrate to keep MAP above 65 mmHg/SBP above 90 mmHg. Blood pressures continues to be low Albumin ordered Off sedation Continue antibiotics. Worsening leucocytosis. On IV steroids Monitor hemoglobin Trended down, Hgb 5.9 g/dL. Platelets trending down. Protonix for GI prophylaxis Continue diuresis w/ Bumex drip - no urine output Monitor renal function Monitor electrolytes. Supplement as necessary. Monitor ins and outs. Nephrology recs appreciated. Monitor sodium, 126 Poor prognosis due to multiple co-morbidities. High likelihood of demise Labs and imaging reviewed. Rest of plan as noted below. Plan: s/p intubation on mechanical ventilator. On AC mode; RR 18, VT 500, PEEP 5, FiO2 30% Titrate FIO2 to keep O2 saturation above 90%. VAP bundle. Daily ABG and CXR while intubated Off sedation Continue antibiotics. F/u cultures. Monitor hemoglobin Transfuse if less than 7.0 g/dL. On multiple pressors for hemodynamic support Titrate to keep mean arterial pressure greater than 65 mmHg. IV fluids with sodium bicarb drip Diurese w/ Bumex drip Monitor renal function Monitor electrolytes. Supplement as necessary. Monitor ins and outs. Maintain euvolemia. GI prophylaxis. DVT prophylaxis. Prognosis: Poor given patient's multiple co-morbidities. Condition: Critical Rest of plan per hospitalist and other consultants. A total of 35 minutes of critical care time was spent reviewing the patient record, examining the patient, making a diagnostic and therapeutic plan, discussing this plan with the medical personnel, following up on diagnostic studies and following the patient for clinical stability excluding any and all procedures. At least 50% of this time was spent in direct, [id number] contact. Thank you, Dr. Heredia, for allowing me to participate in this patient's care. Further recommendations will depend on the patient's clinical course. Please do not hesitate to contact me if you have any questions or concerns. This medical document was created using an electronic medical record system with [employer] dictation system. Although these documentations are being carefully reviewed, there may still be some phonetic and typographical changes. The errors are purely typographical, due to imperfection on the software program, and do not reflect any compromise in the patient's medical care. Dietary Evaluation Review Recommendations by RD: Protein Supplementation Comments: 1) Initiate Pro-Stat @ 30 mL qd. Flush 30 mL free H2O AC/PC. 2) Initiate Nephro-Julieth @ 1 tb qd 3) If patient remains NPO > 7 days, consider EN/TPN to meet at least 75% estimated needs 4) If GI route is preferred, consider Nepro @ 40 mL/hr goal rate as tolerated. TF regimen (including Pro-Stat) will provide 1828 kcals, 93g Pro, and 775 free mL H2O per 24 hrs. TF rate will meet ~ 91% daily estimated energy needs and ~86% daily estimated protein needs 5) Advance to renal diet, pending [facility] approval 6) Follow-up with nephrology, oncology, cardiology, and pulmonology 7) Continue to monitor I&O, labs, and skin integrity Expected Outcomes/Goals: 1) patient to receive nutrition support within 7 days of NPO status 2) labs and wound to improve 3) diet to advance 4) follow-up in 2-3 days Plan discussed with: Other Critical Care Time(min): 35 CC Plasma Assessment Blood Product Administration S: [id number] MIKAL CALVERT MD July 02, 2024 19:43
--- NOTE | 2024-07-02 21:07 | DVHPN2 ---
Progress Note - Dictate Date Seen: July 02, 2024 Medical Necessity Reason Pt with a Central, PICC or Fol: Yes The following are medically ne: Central Line, Hendrix Catheter Reason for hendrix catheter: Strict I&O Subjective Patient is still intubated and sedated FiO2 30% peep of five Patient is on pressors because of sepsis Patient has evidence of metastatic disease of unknown primary No further active GI bleeding reported Hemoglobin up to9.7 after total of 4 units PRBC Patient had severe thrombocytopenia and worsening leukocytosis vital signs Vital Sign Date Time Temp Pulse Resp B/P (MAP) Pulse Ox O2 Delivery O2 Flow Rate FiO2 07/02/24 20:00 26 Mechanical Ventilator+ 40 40 07/02/24 20:00 72 07/02/24 19:56 54/31 (39) 07/02/24 17:15 95.2 203.4 07/02/24 16:02 92 Total Intake and Output 07/01/24 07/01/24 07/02/24 15:00 23:00 07:00 Intake Total 2548.008 ml 1602.008 ml 973.008 ml Output Total 50 ml 60 ml Balance 2548.008 ml 1552.008 ml 913.008 ml medications Current Medications Medications Dose Ordered Sig/Tavares Route Start Time Stop Time Status Last Admin Dose Admin Midazolam HCl 50 ml @ 1 mls/hr Q24H IV 06/26/24 22:15 06/29/24 17:38 3 MLS/HR Vasopressin 20 units/Sodium Chloride 100 ml @ 9 mls/hr Q11H7M IV 06/27/24 01:00 07/02/24 18:50 12 MLS/HR Vancomycin HCl 0 ml @ 0 mls/hr UD IV 06/27/24 03:30 Insulin Human Regular IQ4HR SC 06/27/24 04:00 Dextrose 50 ml UD PRN IV 06/27/24 03:30 07/02/24 20:22 50 ML Ondansetron HCl 4 mg Q4HP PRN IV 06/27/24 03:30 Acetaminophen 650 mg Q6HP PRN PO 06/27/24 03:30 Nitroglycerin 0.4 mg Q5MINP PRN SL 06/27/24 03:30 Morphine Sulfate 2 mg Q30M PRN IV 06/27/24 03:30 Pantoprazole Sodium 50 ml @ 10 mls/hr Q5H IV 06/27/24 03:30 07/02/24 18:50 10 MLS/HR Calcium Acetate 2,001 mg TIDWM NG 06/28/24 14:00 07/01/24 09:30 2,001 MG Fentanyl Citrate 250 ml @ 2.5 mls/hr Q24H IV 06/28/24 10:15 07/02/24 01:49 2.5 MLS/HR Phenylephrine HCl 80 mg/Sodium Chloride 250 ml @ 7.5 mls/hr Q24H IV 06/29/24 12:15 07/02/24 16:24 33.75 MLS/HR Norepinephrine Bitartrate 32 mg/ Sodium Chloride 250 ml @ 0.938 mls/ hr Q24H IV 06/29/24 12:15 07/02/24 05:57 14.063 MLS/HR Epinephrine HCl 16 mg/Dextrose 250 ml @ 1.875 mls/ hr Q24H IV 06/29/24 12:15 07/02/24 20:22 9.375 MLS/HR Dopamine HCl/ Dextrose 250 ml @ 7.641 mls/ hr Q24H IV 06/29/24 15:45 07/02/24 18:50 30.563 MLS/HR Lactulose 30 ml Q6HR PO 06/30/24 05:18 Hydrocortisone Sodium Succinate 100 mg Q8HR IV 06/30/24 08:00 07/02/24 15:13 100 MG Bumetanide 25 mg/ Miscellaneous 100 ml @ 4 mls/hr Q24H IV 07/01/24 12:30 07/02/24 13:59 4 MLS/HR Diagnostic Test (Pha) 1 strip Q2HR 07/01/24 16:00 07/02/24 20:22 1 STRIP Cefepime HCl 50 ml @ 12.5 mls/hr Q12H IV 07/02/24 16:00 07/02/24 16:42 12.5 MLS/HR objective General Appearance: Other (Intubated and sedated) Lungs: Other (Bilateral diffused crackles and rhonchi) Cardiovascular: Regular rate, Normal S1, Normal S2 Abdomen: Other (Distended) Extremities: Other (1+ edema bilaterally in the legs) laboratory and microbiology Laboratory Tests 07/02/24 03:00 Test 07/02/24 03:00 Range/Units Serum Glucose 77 74-106 mg/dL Dietary Evaluation Review Recommendations by RD: Protein Supplementation Comments: 1) Initiate Pro-Stat @ 30 mL qd. Flush 30 mL free H2O AC/PC. 2) Initiate Nephro-Julieth @ 1 tb qd 3) If patient remains NPO > 7 days, consider EN/TPN to meet at least 75% estimated needs 4) If GI route is preferred, consider Nepro @ 40 mL/hr goal rate as tolerated. TF regimen (including Pro-Stat) will provide 1828 kcals, 93g Pro, and 775 free mL H2O per 24 hrs. TF rate will meet ~ 91% daily estimated energy needs and ~86% daily estimated protein needs 5) Advance to renal diet, pending [facility] [facility] approval 6) Follow-up with nephrology, oncology, cardiology, and pulmonology 7) Continue to monitor I&O, labs, and skin integrity Expected Outcomes/Goals: 1) patient to receive nutrition support within 7 days of NPO status 2) labs and wound to improve 3) diet to advance 4) follow-up in 2-3 days Plan discussed with: Other (Nurse) CC Plasma Assessment Blood Product Administration S: [id number] KADEEM SERRANO MD July 02, 2024 21:07
[2024-07-03] VITALS (12 sets, daily range): BP systolic 34–87; BP diastolic 17–50; PULSE 39–81; RESP 26–28
--- NOTE | 2024-07-03 18:00 | DVHDS2 ---
Discharge Summary Date of Admission June 27, 2024 at 03:20 Date of Discharge: July 03, 2024 Labs/Diagnostic Data: Laboratory Results Test 07/03/24 00:38 07/02/24 11:21 07/02/24 03:00 07/01/24 07:55 POC Glucose 58 mg/dl (70-106) Blood Gas Specimen Type Arterial Blood Gas Sample Site Left brachial Blood Gas Patient Temperature 37.0 Arterial Blood Date Drawn [id number] Arterial Blood pH 7.162 (7.350-7.450) Arterial Blood Partial Pressure CO2 24.6 mmHg (32.0-45.0) Arterial Blood Partial Pressure O2 85.8 mmHg (83.0-108.0) Arterial Blood HCO3 8.6 mmol/L (21.0-28.0) Arterial Blood Oxygen Saturation 94.1 % (94.0-98.0) Arterial Blood Base Excess -18.4 mmol/L (-2.0-3.0) Arterial Blood Oxyhemoglobin 93.3 % (94.0-98.0) Arterial Blood Carboxyhemoglobin 0.4 % (0.5-1.5) Arterial Blood Methemoglobin 0.5 % (0.0-1.5) Michael Test N/a Blood Gas Total Hemoglobin 9.60 g/dL (12.0-16.0) Blood Gas Set Respiration Rate 28.0 Blood Gas Modality Vent - ac FiO2 % 40.0 Blood Gas Tidal Volume 500.0 Blood Gas PEEP or CPAP 5.0 Blood Gas Critical Value Read Back Yes Blood Gas Notified Whom malik Sullivan md Blood Gas Notified Time [id number] Blood Gas Notified By katherine Amin rrt White Blood Count 33.8 10^3/uL (4.4-10.8) Red Blood Count 3.54 10^6/uL (4.0-5.20) Hemoglobin 9.7 g/dL (12.2-16.2) Hematocrit 31.2 % (36.0-46.0) Mean Corpuscular Volume 88.0 fL (80.0-100.0) Mean Corpuscular Hemoglobin 27.5 pg (28.0-32.0) Mean Corpuscular Hemoglobin Concent 31.2 g/dL (32.0-36.0) Red Cell Distribution Width 19.9 % (11.8-14.3) Platelet Count 16 10^3/uL (140-450) Mean Platelet Volume 8.8 fL (6.9-10.8) Neutrophils (%) (Auto) % (37.0-80.0) Lymphocytes (%) (Auto) % (10.0-50.0) Monocytes (%) (Auto) % (0.0-12.0) Basophils (%) (Auto) % (0.0-2.0) Neutrophils # (Auto) 10 ^3/uL (1.6-8.6) Lymphocytes # (Auto) 10 ^3/uL (0.4-5.4) Monocytes # (Auto) 10 ^3/uL (0-1.3) Differential Total Cells Counted 100.0 (100) Neutrophils % (Manual) 83 (37.0-80.0) Band Neutrophils % (Manual) 4 Lymphocytes % (Manual) 1 (10.0-50.0) Monocytes % (Manual) 7 (0-12) Eosinophils % (Manual) 0 (0-7) Basophils % (Manual) 0 (0.0-2.0) Metamyelocytes % (manual) 3 Myelocytes % (Manual) 2 Promyelocytes % (Manual) 0 Blast Cells % (Manual) 0 Nucleated Red Blood Cells 6.0 % Reactive Lymphocytes 0 Platelet Estimate Markedly decreased Sodium Level 126 mmol/L (136-145) Potassium Level 5.1 mmol/L (3.5-5.1) Chloride Level 90 mmol/L (98-107) Carbon Dioxide Level 12 mmol/L (20-31) Anion Gap 24 (5-15) Blood Urea Nitrogen 25 mg/dL (9-23) Creatinine 2.00 mg/dL (0.550-1.02) Glomerular Filtration Rate Calc 26 mL/min (>90) BUN/Creatinine Ratio 12.5 (10.0-20.0) Serum Glucose 77 mg/dL (74-106) Calcium Level 7.8 mg/dL (8.7-10.4) Total Bilirubin 8.7 mg/dL (0.2-1.0) Aspartate Amino Transferase (AST) 739 U/L (13-40) Alanine Aminotransferase (ALT) 141 U/L (7-40) Alkaline Phosphatase 281 U/L (46-116) Total Protein 3.5 g/dL (5.7-8.2) Albumin 1.8 g/dL (3.2-4.8) Random Vancomycin Level 21.3 ug/mL (5-10) Uric Acid 9.1 mg/dL (3.1-7.8) Phosphorus Level 7.1 mg/dL (2.4-5.1) Magnesium Level 1.7 mg/dL (1.6-2.6) Lactate Dehydrogenase 1736 U/L (120-246) Test 06/30/24 08:28 06/30/24 04:50 06/30/24 04:40 06/29/24 03:20 Eosinophils (%) (Auto) 0.4 % (0.0-7.0) Eosinophils # (Auto) 0.1 10 ^3/uL (0-0.8) Basophils # (Auto) 0.1 10 ^3/uL (0-0.2) Lactic Acid Level 20.6 mmol/L (0.4-2.0) Blood Gas Spontaneous Rate 22 Blood Gas Spontaneous Tidal Volume 506 Bl Gas Inspiratory/Expiratory Ratio 1:2.0 Specimen Drawn By Kenyatta reese rt Polychromasia Slight Hypochromasia (manual) Slight Anisocytosis (manual) Moderate Macrocytosis Slight Target Cells Few Ammonia 114 umol/L (11-32) Prothrombin Time 12.0 sec (9.3-11.8) Prothrombin Time INR 1.15 (0.9-1.15) Activated Partial Thromboplast Time 24.9 SEC (24.5-34.5) Test 06/28/24 04:35 06/27/24 15:08 06/27/24 11:25 06/27/24 11:03 Large Platelets Few Tumor Marker Alpha Fetoprotein 2.8 ng/mL (0.0-9.2) Carcinoembryonic Antigen 500.00 ng/mL (<=5.0) Influenza Type A Antigen Negative (Negative) Influenza Type B Antigen Negative (Negative) SARS-CoV-2 Antigen (Rapid) Negative (NEGATIVE) Hepatitis A Antibody Total Positive (Negative) Hepatitis B Surface Antigen Negative (Negative) Hepatitis B Surface Antibody Negative (Negative) Hepatitis B Core Total Antibody Negative (Negative) Hepatitis C Antibody Negative (Negative) Test 06/27/24 00:20 06/27/24 00:16 06/26/24 21:34 06/26/24 21:30 Urine Color Dark-orange (Yellow) Urine Clarity Ex.turbid (Clear) Urine pH 5.0 (5.0-9.0) Urine Specific [place] 1.021 (1.001-1.035) Urine Protein 1+ (Negative) Urine Ketones Negative (Negative) Urine Blood 1+ /uL (Negative) Urine Nitrite Negative (Negative) Urine Bilirubin 1+ (Negative) Urine Urobilinogen 2 mg/dL (Negative) Urine Leukocyte Esterase Negative /uL (Negative) Urine RBC 21 /hpf (0 - 4) Urine Microscopic WBC 50 /HPF (0-5) Urine Squamous Epithelial Cells None seen /hpf (<5) Urine Bacteria None seen /hpf (None Seen) Urine Hyaline Casts Many /lpf (0 - 2) Urine Mucus Few (None Seen) Urine Glucose Normal mg/dL (Normal) Urine Opiates Screen Neg (NEGATIVE) Urine Fentanyl Screen Neg (NEGATIVE) Urine Barbiturates Screen Neg (NEGATIVE) Urine Phencyclidine Screen Neg (NEGATIVE) Urine Amphetamines Screen Neg (NEGATIVE) Urine Benzodiazepines Screen Neg (NEGATIVE) Urine Cocaine Screen Neg (NEGATIVE) Urine Cannabinoids Screen Neg (NEGATIVE) D-Dimer, Quantitative 17.01 mg/L FEU (0.0-0.49) Troponin I High Sensitivity 13 ng/L (</=34) Blood Gas Liter Flow 15.00 Tear Drop Cells Few [place] Cells Few B-Type Natriuretic Peptide 134.34 pg/mL (0-100) Lipase 25 U/L (12-53) Thyroid Stimulating Hormone (TSH) 2.44 uIU/mL (0.55-4.78) Plasma/Serum Blood Alcohol 4.9 mg/dL (<10) Other Laboratory Tests 07/02/24 03:00 Brief Hx & Hospital Course: Final diagnoses: Acute severe sepsis with septic shock Acute hypoxic respiratory failure Acute severe metabolic acidosis due to sepsis Acute kidney injury Hyperkalemia Lactic acidosis Hypocalcemia Bilateral lung masses 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 History of colon cancer and surgery 4 years ago, patient was supposed to follow up after surgery for chemo and radiation but she did not History of hypertension History of type 2 diabetes Severe coagulopathy Disseminated intravascular coagulation Thrombocytopenia due to sepsis Transaminitis due to sepsis Hyponatremia Hypoglycemia Acute anemia due to blood loss Hyperbilirubinemia Multi organ failure 74-year-old female was admitted to the hospital in a septic shock state and was intubated and admitted to the ICU on vasopressors and broad-spectrum antibiotics and aggressive measures including blood transfusions and consultations with Nephrology due to acute kidney injury and she required dialysis eventually because of worsening kidney function Her potassium on admission was 7.2 which was treated emergently with the hyperkalemia protocol and then she required dialysis She was given more vasopressors daily because of worsening septic shock She was found to have metastatic disease involving the chest and abdomen and pelvis including bilateral pulmonary masses and retroperitoneal and pelvic lymphadenopathy and bilateral pelvic masses We updated the family about her poor prognosis regarding the metastatic disease, her son stated that the patient had surgery for a tumor for 5 years before and she was supposed to go follow up with chemo and radiation but she never did The patient apparently has been sick for about a month at home and she refused to come to the hospital until the family called 911 and she was brought here Despite all the aggressive treatment with blood transfusion and plasma and IV antibiotics and dialysis and mechanical ventilation, the patient did not improve and she kept worsening The family initially wanted all measures done however yesterday they made her DNR and then this morning the patient peacefully in the ICU Condition at Discharge: Poor Final Diagnosis/Problems List Acute severe sepsis with septic shock Acute hypoxic respiratory failure Acute severe metabolic acidosis due to sepsis Acute kidney injury Hypokalemia Lactic acidosis Hypocalcemia Bilateral lung masses 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 History of colon cancer and surgery 4 years ago, patient was supposed to follow up after surgery for chemo and radiation but she did not History of hypertension History of type 2 diabetes Severe coagulopathy Disseminated intravascular coagulation Thrombocytopenia due to sepsis Transaminitis due to sepsis Hyponatremia Hypoglycemia Acute anemia due to blood loss Hyperbilirubinemia Multi organ failure Discharge Disposition: at Hospital SNF Discharge Will this Physician continue t: No Discharge Statement: "Patient was advised to return to the ER or call 911 if any headaches, dizziness, shortness of breath, chest pain, abdominal pain, bleeding, fevers, or worsening of medical condition. Patient was counseled about treatment plan, medications, possible side effects, patientverbalized understanding. All questions were answered to the best of my ability. This discharge took greater then 30 minutes in planning, reviewing documentation, counseling the patient, and discussing with other team members." ASSESSMENT ASSESSMENT Assessment Date of Service: July 03, 2024 Billing Provider: SCOOBY MCADAMS MD Common Visit Codes: NOT BILLABLE SCOOBY MCADAMS MD July 03, 2024 18:00
== END 2024-07-03 08:11 | DRG 870 ==
LOC: EDBD 21:07 → ER 21:27 → OVERFLOW 06-27 03:20 → ICU WEST 06-28 16:43
PROVIDERS: ADMIT Internal Medicine Geriatric Medicine; ATTEND Internal Medicine Geriatric Medicine
PROC: 0BH17EZ Insertion of Endotracheal Airway into Trachea, Via Natural or Artificial Opening (ICD-10-PCS; principal; 2024-06-27)
PROC: 5A1955Z Respiratory Ventilation, Greater than 96 Consecutive Hours (ICD-10-PCS; 2024-06-27)
PROC: 02H633Z Insertion of Infusion Device into Right Atrium, Percutaneous Approach (ICD-10-PCS; 2024-06-27)
PROC: B548ZZA Ultrasonography of Superior Vena Cava, Guidance (ICD-10-PCS; 2024-06-27)
PROC: 5A1D70Z Performance of Urinary Filtration, Intermittent, Less than 6 Hours Per Day (ICD-10-PCS; 2024-06-27)
PROC: 30233N1 Transfusion of Nonautologous Red Blood Cells into Peripheral Vein, Percutaneous Approach (ICD-10-PCS; 2024-06-27)
PROC: 30233K1 Transfusion of Nonautologous Frozen Plasma into Peripheral Vein, Percutaneous Approach (ICD-10-PCS; 2024-06-28)
PROC: 5A1D70Z Performance of Urinary Filtration, Intermittent, Less than 6 Hours Per Day (ICD-10-PCS; 2024-06-29)
DX: A41.9 Sepsis, unspecified organism (principal); D65 Disseminated intravascular coagulation [defibrination syndrome]; E88.3 Tumor lysis syndrome; R65.21 Severe sepsis with septic shock; J96.01 Acute respiratory failure with hypoxia; J18.9 Pneumonia, unspecified organism; K92.2 Gastrointestinal hemorrhage, unspecified; E87.20 Acidosis, unspecified; D62 Acute posthemorrhagic anemia; E87.1 Hypo-osmolality and hyponatremia; N17.9 Acute kidney failure, unspecified; C18.9 Malignant neoplasm of colon, unspecified; R57.1 Hypovolemic shock; E87.5 Hyperkalemia; E83.51 Hypocalcemia; E83.39 Other disorders of phosphorus metabolism; Z20.822 Contact with and (suspected) exposure to COVID-19; E88.09 Other disorders of plasma-protein metabolism, not elsewhere classified; Z66 Do not resuscitate; I50.9 Heart failure, unspecified; I11.0 Hypertensive heart disease with heart failure; K74.60 Unspecified cirrhosis of liver; E11.649 Type 2 diabetes mellitus with hypoglycemia without coma; E79.0 Hyperuricemia without signs of inflammatory arthritis and tophaceous disease; E87.6 Hypokalemia; R91.8 Other nonspecific abnormal finding of lung field; E80.6 Other disorders of bilirubin metabolism; R74.01 Elevation of levels of liver transaminase levels; R59.0 Localized enlarged lymph nodes; Z74.01 Bed confinement status; Z83.3 Family history of diabetes mellitus; Z82.49 Family history of ischemic heart disease and other diseases of the circulatory system
CPT/HCPCS: 31500; 36415; 36430; 36556; 36600; 71045; 71250; 74176; 76700; 80048; 80053; 80202; 80307; 80320; 81001; 82105; 82140; 82378; 82565; 82805; 82947; 82962; 83605; 83615; 83690; 83735; 83880; 84100; 84443; 84484; 84550; 85007; 85025; 85027; 85379; 85610; 85730; 86704; 86706; 86708; 86803; 86850; 86900; 86901; 86920; 87040; 87070; 87077; 87081; 87186; 87205; 87340; 87426; 87804; 90935; 93005; 93306; 93970; 94002; 94003; 94640; 96361; 96365; 96375; 99152; 99291; G0378; J0171; J0330; J0692; J1265; J1642; J2185; J2543; J7060; P9047